=== PATIENT | female | born 1940 | race Caucasian/White ===

== ENCOUNTER 2022-04-18 07:38 | Day surgery (SDC) | payer MEDICARE, OTHER ==
[2022-04-18] MEDS ORDERED: diazePAM 5 MG TAB PO PRN (08:53)
[2022-04-18 09:16] VITALS: TEMP 98.3
--- NOTE | 2022-04-18 11:39 | CT ---
EXAMINATION TYPE: CT lumbar spine w con, FL myelogram lumbosacral DATE OF EXAM: 04/18/2022 COMPARISON: None HISTORY: Radiculopathy. CT DLP: 487.4 mGycm Automated exposure control for dose reduction was used. CONTRAST: 10 cc of intrathecal contrast was administered. PROCEDURE: Informed consent was obtained and all the patient's questions were answered. Approximately 10 cc of nonionic contrast was injected into the thecal sac at the L2-3 level under fluoroscopic cuate dance. Patient tolerated the procedure well and was sent to the radiology suite for further imaging. Enhanced CT of the lumbar spine was performed. Bone and soft tissue window settings are submitted as well as coronal and sagittal reconstructions. L1-L2: There is evidence of vacuum disc. Posterior disc bulge noted. Mild effacement ventral thecal s ac. No evidence for disc herniation or central stenosis. Mild facet joint arthropathy without foramin al encroachment. Ventral spondylosis identified. L2-L3: Postoperative changes of lumbar laminectomy with fusion. Intervertebral body spacer noted. Ext ensive streak artifact limits evaluation. No definite evidence for recurrent or residual disease. No central stenosis. Appropriate postoperative alignment. L3-L4: Postoperative changes of lumbar laminectomy with fusion. Intervertebral body spacer noted. Ext ensive streak artifact limits evaluation. No definite evidence for recurrent or residual disease. No central stenosis. Appropriate postoperative alignment. L4-L5: Postoperative changes of lumbar laminectomy with fusion. Intervertebral body spacer noted. Ext ensive streak artifact limits evaluation. No definite evidence for recurrent or residual disease. No central stenosis. Grade 1 anterolisthesis L4 and L5 of 3 mm. L5-S1: Postoperative changes of lumbar laminectomy with fusion. Vacuum disc noted. Extensive streak a rtifact limits evaluation. No definite evidence for recurrent or residual disease. No central stenosi s. IMPRESSION: 1. Extensive postoperative change of lumbar laminectomy and fusion extending from L2 through L5 S1. E xamination is limited by streak artifact. No obvious recurrent or residual disease. Mild anterolisthe sis L4 and L5 3 mm. 2. vacuum disc and posterior disc bulge at the L1-2.
[2022-04-18 13:38] VITALS: BP 116/82; PULSE 75; RESP 16
== END 2022-04-18 13:01 | disposition home or self-care (01) ==
LOC: RADPROMAIN 07:38
PROVIDERS: ATTEND Orthopaedic Surgery
DX: M54.50 Low back pain, unspecified (principal); M54.10 Radiculopathy, site unspecified
CPT/HCPCS: 62304; 72132; Q9966

== ENCOUNTER → 2022-05-01 | Outpatient (CLI) | payer MEDICARE ==
[2022-05-01 12:00] LABS: Anisocytosis Slight; HCT 31.6 % (34.0-46.0); HGB 10.3 gm/dL (11.4-16.0); Hypochromasia Slight; MCH 33.3 pg (25.0-35.0); MCHC 32.6 g/dL (31.0-37.0); MCV 102.1 fL (80.0-100.0); Macrocytosis Slight; Mean Platelet Volume 8.3; Platelet Count 243 k/uL (150-450); RBC 3.09 m/uL (3.80-5.40); RDW 16.3 % (11.5-15.5); WBC 7.2 k/uL (3.8-10.6)
[2022-05-01 12:15] LABS: Potassium 4.5 mmol/L (3.5-5.1)
== END | disposition home or self-care (01) ==
LOC: LABPAT 10:49
PROVIDERS: ATTEND Internal Medicine
DX: Z01.812 Encounter for preprocedural laboratory examination (principal); I35.0 Nonrheumatic aortic (valve) stenosis
CPT/HCPCS: 36415; 80051; 82565; 84520; 85027

== ENCOUNTER 2022-05-02 09:25 | Day surgery (SDC) | payer MEDICARE ==
[~2022-05-02 09:25] MED LIST: ALPRAZolam 0.25 MG TAB PO PRN; ALPRAZolam 0.5 MG TAB PO PRN; ASPIRIN 325 MG TAB PO ONE; ATORVASTATIN 80 MG TAB PO ONE; HEPARIN SODIUM,PORCINE 10,000 UNIT in SODIUM CHLORIDE 0.9% 1,000 ML IRRIGATION PRN; HEPARIN SODIUM,PORCINE 2,500 UNIT in SODIUM CHLORIDE 0.9% 250 ML IRRIGATION PRN; NITROGLYCERIN SL TABS 0.4 MG TAB SUBLINGUAL PRN
[2022-05-02] MEDS: SODIUM CHLORIDE 0.9% 1,000 ML in EMPTY BAG 1 BAG IV SCH ×3 (10:00→18:50)
[2022-05-02] MEDS ORDERED: fentaNYL (PF) 50 MCG/ML 2 ML AMP ONE (10:42)
[2022-05-02] MEDS ORDERED: BENZOCAINE SPRAY 1 CAN TOPICAL ONE (10:57)
[2022-05-02] MEDS ORDERED: HEPARIN SODIUM 1,000 UN/ML (10ML VL) ONE (11:02)
[2022-05-02] MEDS ORDERED: VERAPAMIL 2.5 MG/ML 2 ML AMP ONE (11:02)
[2022-05-02] MEDS: MIDAZOLAM 2 MG/2 ML VIAL IVP ONE ×2 (11:08→11:11)
[2022-05-02] MEDS: fentaNYL (PF) 50 MCG/ML 2 ML AMP IVP ONE ×2 (11:08→11:23)
[2022-05-02] MEDS ORDERED: MIDAZOLAM 2 MG/2 ML VIAL IVP ONE (11:13)
--- NOTE | 2022-05-02 11:29 | P.TEE ---
Description of Procedure(s): Procedure performed: Transesophageal Echocardiogram with color flow doppler, pulsed wave doppler and continuous wave doppler, moderate conscious sedation Moderate conscious sedation: Moderate conscious sedation was supplied with direct supervision of myself using Versed and Fentanyl. Complications: none Indications: Moderate to severe aortic stenosis PROCEDURE: After the risks, benefits and alternatives of the above mentioned procedure was explained in detail with the patient, informed consent was obtained. Patient was brought to the lab in a fasting state. Patient was given IV Versed and Fentanyl for sedation. The throat was sprayed with Hurricane to anesthetize the throat. A lubricated Omni probe was then introduced into the esophagus and stomach and multiple views were obtained. 2D echo with color flow doppler, pulsed wave doppler and continuous wave doppler was utilized. Agitated saline bubbles were injected to assess for any intra-atrial shunt. The probe was then removed. Patient tolerated the procedure well. Patient was transferred to the post procedure area in stable and satisfactory condition. FINDINGS: 1. There is a bioprosthetic aortic valve with severe aortic stenosis. Vmax of 4.3 m/s, mean gradient 39.5 mmHg, aortic valve area by planimetry 0.6 cm. 2. The mitral valve appears be normal with mild mitral regurgitation. 3. Tricuspid valve has moderate tricuspid regurgitation. 4. The interatrial septum is intact. No evidence of PFO. 5. Left atrial appendage is free of clot. 6. Left ventricular size and function appears to be normal with left ventricular ejection fraction 55-60%
[2022-05-02] MEDS ORDERED: LIDOCAINE 1% INJ 10MG/ML (5 ML VIAL-PF) SQ ONE (11:52)
[2022-05-02] MEDS ORDERED: VERAPAMIL SYRINGE (5 MG/10 ML) INTRAARTER ONE (11:54)
[2022-05-02] MEDS: HEPARIN SODIUM 1,000 UN/ML (10ML VL) IV ONE ×7 (11:57→13:10)
[2022-05-02] MEDS ORDERED: CLOPIDOGREL 75 MG TAB ONE (12:18)
[2022-05-02] MEDS ORDERED: CLOPIDOGREL 75 MG TAB PO ONE (12:20)
[2022-05-02] MEDS ORDERED: SODIUM CHLORIDE 0.9% 1,000 ML in EMPTY BAG 1 BAG IV ONE (13:00)
[2022-05-02] MEDS ORDERED: IOPAMIDOL-370 125ML BTL INJ ONE (13:06)
[2022-05-02] MEDS ORDERED: PANTOPRAZOLE 40 MG TABLET PO PRN (14:47)
[2022-05-02] MEDS ORDERED: hydrALAZINE HCL 20 MG/ML 1 ML VIAL IVP STA (15:28)
--- NOTE | 2022-05-02 17:36 | P.PRCINT ---
Percutaneous Coronary Int. - Percutaneous Coronary Intervention Percutaneous Coronary Intervention: PROCEDURES PERFORMED: Bilateral coronary angiography, PORTILLO to LAD angiography, SVG to PDA angiography, IVUS left main, iFR LAD, PCI left main with 4.0 x 12 mm Xience ADAN INDICATION: Severe aortic stenosis, [place] Heart Association class 3-4 symptoms with worsened angina, CAD with history of 2 vessel CABG SVG to RCA and PORTILLO to LAD CONSENT:I have discussed the risks, benefits and alternative therapies for the above-mentioned procedure and for both sedation/analgesia as well as necessary blood product administration, if indicated, as they pertain to this patient. The patient has indicated understanding and acceptance of the risks and procedures discussed. PROCEDURE: After the risks, benefits and alternatives of the above mentioned procedure explained in detail with the patient, informed consent was obtained. Patient was taken to the catheterization lab and prepped and draped in usual fashion. 1% lidocaine was used to anesthetize the left radial artery. A 6- Jamaican sheath was placed in the left radial artery using modified Seldinger technique. Left coronary angiography was performed with a 6-CLS 3.5 catheter (given FL 3.5 and FL4 could not engage) and right coronary angiography was performed with a 5-Jamaican JR4 catheter in various views. SVG to RCA angiography was performed with a 6-Jamaican FR 4 catheter and PORTILLO to LAD angiography was performed with the 6-Jamaican FR 4 catheter. There was distal circumflex 100% stenosis which was noted on prior catheterization however appeared to be progression of left main disease and possible progression of proximal LAD disease. The decision was made to perform PCI of the left main. The 6-Jamaican CLS 3.5 guide was used engage the left main. A 0.014 BMW wire was advanced into the distal LAD and a second BMW was advanced into the distal OM1. Balloon angioplasty was performed with a 3.5 x 8 mm balloon. Next DANNY was performed which showed reference vessel 4.2 x 3.8mm. Therefore a 4.0 x 12 mm Xience ADAN was placed in the proximal left main. Contrast was limited secondary to CKD. There was a proximal LAD lesion which was also evaluated with iFR. An iFR wire was advanced into the left main and normalized and then advanced 1 cm distal to the lesion. iFR was performed which was 0.86 as well as 0.92. Given some discrepancy and appeared to supply a fairly small territory unprotected diagonal branch this was felt best treated medically especially given contrast threshold. The wires were removed and final angiograms were performed. The left radial sheath was removed and a TR band was placed with hemostasis achieved. The patient tolerated the procedure well. Patient was transported back to the post catheterization holding area in stable condition. Conscious Sedation: Patient was monitored under the direct supervision of vision of myself for conscious sedation using Versed and fentanyl for a total duration of 75 minutes HEMODYNAMICS: Aorta: 142/76 SELECTIVE CORONARY ARTERIOGRAPHY: LEFT MAIN: The left main is a large caliber vessel which bifurcates into the LAD and circumflex. There is a 70% left main shaft stenosis. LEFT ANTERIOR DESCENDING CORONARY ARTERY: LAD is a large caliber vessel which wraps around to the apex. There is a proximal LAD 70% stenosis and a mid LAD 100% stenosis. LEFT CIRCUMFLEX CORONARY ARTERY: Left circumflex is a moderate caliber vessel. The circumflex gives off a small caliber OM1 vessel with mild disease and after OM1 there is 100% circumflex stenosis. RIGHT CORONARY ARTERY: The right coronary artery is a moderate caliber vessel which gives off a PDA and PLV branch and is the dominant vessel. There is 100% mid RCA diffuse disease. SVG to PDA: Widely patent PORTILLO to LAD: Widely patent FINAL IMPRESSION: 1. CAD as described above including 70% left main stenosis, 70% proximal LAD stenosis, mid LAD 100% stenosis, mid circumflex 100% stenosis, mid RCA 100% stenosis 2. Patent PORTILLO to LAD and SVG to the PDA 3. Status post successful PCI left main with a 4.0 x 12 mm Xience ADAN PLAN: 1. Aggressive risk factor modification per most recent ACC/AHA guidelines. 2. Continue Eliquis and Plavix for minimum 6 months. 3. Given contrast threshold and iFR borderline would treat unprotected diagonal/proximal LAD lesion medically at this time. If patient continues to have symptoms despite PCI left main would recommend aortic valve replacement.
[2022-05-02] MEDS ORDERED: hydrALAZINE HCL 20 MG/ML 1 ML VIAL IVP PRN (19:38)
[2022-05-02] MEDS ORDERED: ZOLPIDEM 5 MG TAB PO PRN (20:24)
[2022-05-02] MEDS ORDERED: RX INFO: IV CONTRAST WAS GIVEN 1 EACH MISC MISCELLANE PRN (20:24)
[2022-05-02] MEDS ORDERED: MAG HYDROX/AL HYDROX/SIMETH 30 ML CUP PO PRN (20:24)
[2022-05-02] MEDS ORDERED: ATROPINE SULFATE 0.1 MG/ML 10ML SYRINGE IV PRN (20:24)
[2022-05-02] MEDS ORDERED: NITROGLYCERIN SL TABS 0.4 MG TAB SUBLINGUAL PRN (20:24)
[2022-05-02] MEDS: GABAPENTIN 300 MG CAP PO SCH (20:42)
[2022-05-02] MEDS: SODIUM CHLORIDE 0.9% 1,000 ML IV SCH (20:43)
[2022-05-02] MEDS ORDERED: allopurinoL 300 MG TAB PO SCH (21:00)
[2022-05-02] MEDS ORDERED: FENOFIBRATE 160 MG TAB PO SCH (21:00)
[2022-05-03 07:29] VITALS: PULSE 60; RESP 18; TEMP 98
[2022-05-03] MEDS ORDERED: ASPIRIN 81 MG PO SCH (09:00)
[2022-05-03] MEDS ORDERED: CHOLECALCIFEROL 25 MCG (1000 IU) TABLET PO SCH (09:00)
[2022-05-03] MEDS ORDERED: APIXABAN 5 MG TAB PO SCH (09:00)
[2022-05-03] MEDS ORDERED: LOSARTAN 25 MG TAB PO SCH (09:00)
[2022-05-03] MEDS ORDERED: POTASSIUM CHLORIDE ER 20 MEQ TAB.ER PO SCH (09:00)
[2022-05-03] MEDS ORDERED: FUROSEMIDE 20 MG TAB PO SCH (09:00)
[2022-05-03] MEDS ORDERED: CLOPIDOGREL 75 MG TAB PO SCH (09:00)
[2022-05-03] MEDS ORDERED: LORATADINE 10 MG TAB PO SCH (09:00)
[2022-05-03] MEDS ORDERED: LACTOBACILLUS ACIDOPH & BULGAR 1 EACH PACKET PO SCH (09:00)
[2022-05-03] MEDS ORDERED: ASCORBIC ACID 500 MG TAB PO SCH (09:00)
[2022-05-03] MEDS ORDERED: SERTRALINE 50 MG TAB PO SCH (09:00)
[2022-05-03] MEDS: GABAPENTIN 300 MG CAP PO SCH (09:30)
[2022-05-03] MEDS: SODIUM CHLORIDE 0.9% 1,000 ML IV SCH (09:38)
[2022-05-03] MEDS ORDERED: FUROSEMIDE 10 MG/ML 4 ML VIAL IV STA (10:02)
--- NOTE | 2022-05-03 10:09 | P.PN ---
Subjective HISTORY OF PRESENTING ILLNESS underwent SHEMAR and left heart catheterization yesterday. SHEMAR showed severe aortic stenosis and left heart catheterization showed patent PORTILLO to LAD and patent SVG to RCA. RCA was under percent occluded with progression of left main disease to 70% as well as some progression of proximal LAD lesion however proxi mal LAD lesion did not appear as significant and only leading towards smaller diagonal branch. Given contrast threshold PCI of the left main was performed successfully from a left radial approach. Given her CKD she was placed on IV fluids. Creatinine today has improved to 1.0. She has been describing some increased dyspnea however and does have crackles on exam. Blood pressures a been somewhat elevated and has needed as needed doses of hydralazine. We have prescribed metoprolol in the office however has not been getting this here. PHYSICAL EXAMINATION Vital signs reviewed. CONSTITUTIONAL: No apparent distress. HEENT: Head is normocephalic. Pupils are equal, round. Sclerae anicteric. Mucous membranes of the mouth are moist. No JVD. No carotid bruit. CHEST EXAMINATION: Lungs are clear to auscultation. No chest wall tenderness is noted on palpation or with deep breathing. HEART EXAMINATION: Regular rate and rhythm. S1, S2 heard. +3/6 murmurs, gallops or rub. ABDOMEN: Soft, nontender. Positive bowel sounds. EXTREMITIES: 2+ peripheral pulses, no lower extremity edema and no calf tenderness. NEUROLOGIC EXAMINATION: Patient is awake, alert and oriented x3. ASSESSMENT 1. Symptomatic severe aortic stenosis 2. Chest pain and dyspnea worsened recently concerning for unstable angina 3. CAD with 100% RCA, 100% mid LAD, 100% mid circumflex and progression of left main to 70% stenosis as well as proximal LAD 90% stenosis, status post PCI left main 05/02 4. Acute on chronic diastolic heart failure 5. Dyspnea appears most likely related to heart failure 6. Chronic kidney disease somewhat improved 7. Atrial fibrillation PLAN Patient having some increase in dyspnea and we will check chest x-ray stop IV fluids and give Lasix. Also start metoprolol. EKG shows continued similar T- wave inversions similar to prior to intervention. Monitor response of Lasix and if improved by this afternoon likely discharge home. Objective - Vital Signs Vital signs: Vital Signs Temp 98.0 F 05/03/22 07:00 Pulse 60 05/03/22 09:42 Resp 18 05/03/22 07:00 BP 159/85 05/03/22 07:00 Pulse Ox 98 05/03/22 09:42 FiO2 21 05/03/22 08:08 Intake & Output 05/02/22 05/03/22 05/03/22 18:59 06:59 18:59 Intake Total 945 750 80 Balance 945 750 80 Weight 60.3 kg Intake: IV 425 Intake, IV Titration 400 Amount Sodium Chloride 0.9% 1, 400 000 ml In Empty Bag 1 bag @ 3 ML/KG/HR 180.9 mls/ hr IV .[id number] ONE Rx#: [id number] Oral 120 750 80 Other: # Voids 1 - Labs CBC & Chem 7: 05/03/22 05:15 Labs: Abnormal Lab Results - Last 24 Hours (Table) 05/03/22 Range/Units 05:15 Creatinine 1.08 H (0.52-1.04) mg/dL
[2022-05-03] MEDS ORDERED: METOPROLOL SUCCINATE (ER) 25 MG TAB.ER.24H PO SCH (10:15)
[2022-05-03 10:55] VITALS: BMI 25.9
--- NOTE | 2022-05-03 11:09 | XR ---
EXAMINATION TYPE: XR chest 2V DATE OF EXAM: 05/03/2022 COMPARISON: Chest x-ray March 14, 2010 HISTORY: Dyspnea. TECHNIQUE: Frontal and lateral views of the chest are obtained. FINDINGS: The osseous structures are demineralized. Persistent mild cardiomegaly with dual lead pace maker. Persistent overlying sternal wires and mediastinal clips. Increased interstitial prominence bi laterally without suspicious focal airspace opacity, pleural effusion, or pneumothorax seen. IMPRESSION: Cardiomegaly with suggestion of mild interstitial edema. Correlate for CHF exacerbation.
[2022-05-03 14:01] VITALS: BP 170/78
--- NOTE | 2022-05-03 20:43 | P.DS ---
Providers Attending physician: Mani Alas DO Consults: 05/02/22 20:24 Consult Physician Routine Consulting Provider: [facility] Consult Reason/Comments: Post Interventional Patient Do you want consulting provider notified?: Already Contacted Primary care physician: ELEAZAR CHUN DO Hospital Course: Patient presented for workup of worsening SOB and chest pains concerning for unstable angina or progression of aortic stenosis. SHEMAR was performed which showed severe aortic stenosis and a LHC showed patent PORTILLO to LAD and SVG to RCA as well as progression of left main to 70% stenosis with additional proximal LAD 90% stenosis leading only to a smaller caliber diagonal with remainder of LAD revascularized by PORTILLO. Given progression of Left main disease, PCI was recommended and patient underwent successful PCI of left main. After, iFR of LAD was borderline and therefore treated medically especially given CKD and contrast threshold. She was monitored overnight and did have some dyspnea which appeared related to the IVF she recieved for CKD/ prehydration and this improved with diuresis. She will be sent home with triple therapy with aspirin, Plavix, Eliquis for 1 week then transition to only Eliquis and Plavix for 6 months. If she continues to have symptoms, recommend AVR. Patient Condition at Discharge: Stable Plan - Discharge Summary Discharge Rx Participant: No New Discharge Prescriptions: New Atorvastatin [Lipitor] 40 mg PO DAILY #90 tablet Clopidogrel [Plavix] 75 mg PO DAILY #90 tablet Metoprolol Succinate (ER) [Toprol Xl] 25 mg PO DAILY #90 tab No Action allopurinoL [Zyloprim] 300 mg PO HS Cholecalciferol [Vitamin D3] 1,000 unit PO DAILY Ascorbic Acid [Vitamin C] 500 mg PO DAILY Sertraline [Zoloft] 50 mg PO QAM Aspirin 81 mg PO DAILY Losartan [Cozaar] 25 mg PO QAM Gabapentin 600 mg PO BID Omeprazole [PriLOSEC] 20 mg PO DAILY PRN PRN Reason: REFLUX Furosemide [Lasix] 20 mg PO DAILY Apixaban [Eliquis] 5 mg PO BID Cetirizine HCl [Zyrtec] 5 mg PO DAILY Potassium Chloride [Klor-Con 20] 20 meq PO DAILY Fenofibrate 150 mg PO HS Lactobacillus Acidophilus [Acidophilus Probiotic] 1 each PO DAILY Discharge Medication List Ascorbic Acid [Vitamin C] 500 mg PO DAILY 03/27/15 [History] Aspirin 81 mg PO DAILY 03/27/15 [History] Cholecalciferol [Vitamin D3] 1,000 unit PO DAILY 03/27/15 [History] Gabapentin 600 mg PO BID 03/27/15 [History] Losartan [Cozaar] 25 mg PO QAM 03/27/15 [History] Omeprazole [PriLOSEC] 20 mg PO DAILY PRN 03/27/15 [History] Sertraline [Zoloft] 50 mg PO QAM 03/27/15 [History] allopurinoL [Zyloprim] 300 mg PO HS 03/27/15 [History] Apixaban [Eliquis] 5 mg PO BID 03/25/22 [History] Cetirizine HCl [Zyrtec] 5 mg PO DAILY 03/25/22 [History] Fenofibrate 150 mg PO HS 03/25/22 [History] Furosemide [Lasix] 20 mg PO DAILY 03/25/22 [History] Lactobacillus Acidophilus [Acidophilus Probiotic] 1 each PO DAILY 03/25/22 [History] Potassium Chloride [Klor-Con 20] 20 meq PO DAILY 03/25/22 [History] Atorvastatin [Lipitor] 40 mg PO DAILY #90 tablet 05/03/22 [Rx] Clopidogrel [Plavix] 75 mg PO DAILY #90 tablet 05/03/22 [Rx] Metoprolol Succinate (ER) [Toprol Xl] 25 mg PO DAILY #90 tab 05/03/22 [Rx] Follow up Appointment(s)/Referral(s): Mani Alas DO [STAFF PHYSICIAN] - 05/13/22 1:15 pm Patient Instructions/Handouts: Moderate Sedation (DC), Coronary Angioplasty (DC), After Radial Heart Catheterization (GEN), Transesophageal Echocardiogram (DC), Clopidogrel (By mouth) Activity/Diet/Wound Care/Special Instructions: No lifting/pushing/pulling greater than 5 lbs for 5 days with left arm. Remove dressing tomorrow afternoon. No need to re-dress. You may shower tomorrow after dressing removal. No soaking puncture site for 3 days (such as swim or tub). RESUME Eliquis tomorrow. Discharge Disposition: HOME SELF-CARE
== END 2022-05-03 17:50 | disposition home or self-care (01) ==
LOC: CATHCVL 09:25 → 6NMEDSUR 13:05 → CATHCVL 05-03 17:50
PROVIDERS: ATTEND Internal Medicine
DX: I08.3 Combined rheumatic disorders of mitral, aortic and tricuspid valves (principal); I25.118 Atherosclerotic heart disease of native coronary artery with other forms of angina pectoris; I25.82 Chronic total occlusion of coronary artery; I48.19 Other persistent atrial fibrillation; I49.5 Sick sinus syndrome; I10 Essential (primary) hypertension; E78.5 Hyperlipidemia, unspecified; M10.9 Gout, unspecified; Z20.822 Contact with and (suspected) exposure to COVID-19; Z95.1 Presence of aortocoronary bypass graft; Z95.3 Presence of xenogenic heart valve; Z95.0 Presence of cardiac pacemaker; Z90.49 Acquired absence of other specified parts of digestive tract; Z85.3 Personal history of malignant neoplasm of breast; Z79.899 Other long term (current) drug therapy; Z79.01 Long term (current) use of anticoagulants
CPT/HCPCS: 94760; 93312; 93320; 93325; 93571; 92978; 93455; 82565; 87635; 71046; C9600; C1769 ×2; C1887; C1894; C1725; C1753; C1874; J2250; J0360; J1940; J2001; J3010; J1644; Q9967

== ENCOUNTER 2022-05-07 21:31 | Inpatient (IN) | payer MEDICARE ==
[2022-05-07 22:45] LABS: Albumin 3.9 g/dL (3.5-5.0); Calcium 10.1 mg/dL (8.4-10.2); Potassium 4.1 mmol/L (3.5-5.1); Total Bilirubin 0.7 mg/dL (0.2-1.3); Total Protein 6.3 g/dL (6.3-8.2)
[2022-05-07 23:05] LABS: Anisocytosis Slight; Basophils % (A) 0 %; Eosinophils # (A) 0.2 k/uL (0-0.7); Eosinophils % (A) 1 %; HCT 25.3 % (34.0-46.0); Hypochromasia Moderate; Lymphocytes % (A) 16 %; MCH 32.3 pg (25.0-35.0); MCHC 31.7 g/dL (31.0-37.0); MCV 101.6 fL (80.0-100.0); Macrocytosis Slight; Mean Platelet Volume 8.4; Monocytes # (A) 0.6 k/uL (0-1.0); Monocytes % (A) 5 %; Neutrophils # (A) 9.5 k/uL (1.3-7.7); Neutrophils % (A) 77 %; Platelet Count 346 k/uL (150-450); Poikilocytosis Slight; RBC 2.49 m/uL (3.80-5.40); RDW 17.3 % (11.5-15.5); WBC 12.4 k/uL (3.8-10.6)
[2022-05-07] MEDS ORDERED: SODIUM CHLORIDE 0.9% 1,000 ML IV STA (23:11)
--- NOTE | 2022-05-07 23:18 | ED ---
ENT HPI - General Chief complaint: ENT Stated complaint: Nose Bleed Time Seen by Provider: 05/07/22 22:37 Source: patient, family, RN notes reviewed Mode of arrival: ambulatory Limitations: no limitations - History of Present Illness Initial comments: This is a pleasant 81-year-old female presents to the emergency back complaining of right sided epistaxis which started about 7 PM. Patient states she was also getting some bleeding down the back of her throat. Patient already has nasal packing in the last several knows from [facility]. Patient saw the ear nose and throat doctor yesterday, Dr. Garcia. Bleeding has now stopped. Patient scheduled for surgery tomorrow by ENT. No headache, no fever or chills, no changes in vision or hearing, no sore throat or difficulty with speech, no neck pain, no chest pain or shortness of breath, no abdominal pain, no nausea or vomiting, no changes in urination or bowel movements, no numbness or tingling, no extremity pain, no skin rashes or lesions. Patient is on Eliquis as she just had a cardiac stent placed on Thursday by Dr. Alas. 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 It was decided that the Eliquis would be continued. MD complaint: epistaxis - Related Data Home Medications Medication Instructions Recorded Confirmed Aspirin 81 mg PO DAILY 03/27/15 05/07/22 Gabapentin 600 mg PO BID 03/27/15 05/07/22 Losartan [Cozaar] 50 mg PO DAILY 03/27/15 05/07/22 allopurinoL [Zyloprim] 300 mg PO HS 03/27/15 05/07/22 Apixaban [Eliquis] 5 mg PO BID 03/25/22 05/07/22 Furosemide [Lasix] 20 mg PO DAILY 03/25/22 05/07/22 Potassium Chloride [Klor-Con 20] 20 meq PO DAILY 03/25/22 05/07/22 Fenofibrate Nanocrystallized 145 mg PO HS 05/07/22 05/07/22 [Fenofibrate] Ipratropium [place] [Ipratropium 2 spray NASAL BID PRN 05/07/22 05/07/22 [place] 0.03%] Magnesium 250 mg PO DAILY 05/07/22 05/07/22 Previous Rx's Medication Instructions Recorded Atorvastatin [Lipitor] 40 mg PO DAILY #90 tablet 05/03/22 Allergies Allergy/AdvReac Type Severity Reaction Status Date / Time No Known Allergies Allergy Verified 05/07/22 23:44 Review of Systems ROS Statement: Those systems with pertinent positive or pertinent negative responses have been documented in the HPI. ROS Other: All systems not noted in ROS Statement are negative. Past Medical History Past Medical History: Coronary Artery Disease (CAD), GERD/Reflux, Hyperlipidemia, Hypertension Additional Past Medical History / Comment(s): See Dr Hernandez's H&P. Fall 05/04/22 with significant facial trauma. Bilateral hearing aid use. DIARRHEA. HX RIGHT BREAST CANCER STAGE 1, HAD RADIATION JUL-SEP 2012. History of Any Multi-Drug Resistant Organisms: None Reported Past Surgical History: Back Surgery, Bowel Resection, Coronary Bypass/CABG, Heart Catheterization With Stent, Hysterectomy, Orthopedic Surgery, Pacemaker Additional Past Surgical History / Comment(s): CABG 3 VESSEL WITH AORTIC VALVE REPLACEMENT, heart catheterization X2 with one stent each time, RIGHT BREAST LUMPECTOMY, pacemaker, pins and screws in lumbar spine, bowel resection due to precancer, SHEMAR. Past Anesthesia/Blood Transfusion Reactions: No Reported Reaction Date of Last Stent Placement:: 05/02/22 Type of Cardiac Device: Unknown Device Placement Date:: unknown Past Psychological History: Depression Smoking Status: Never smoker Past Alcohol Use History: None Reported Past Drug Use History: None Reported - Past Family History Mother Family Medical History: Cancer Father Additional Family Medical History / Comment(s): HEART PROBLEMS. General Exam Limitations: no limitations General appearance: alert, in no apparent distress Head exam: Present: atraumatic, normocephalic, normal inspection Eye exam: Present: normal appearance, PERRL, EOMI. Absent: scleral icterus, conjunctival injection, periorbital swelling ENT exam: Present: normal oropharynx, mucous membranes moist, TM's normal bilaterally, normal external ear exam, other (Evidence of right-sided epistaxis with a large clot in the nasal passage. No active bleeding. Left side is packed. Extensive bruising noted to the patient's periorbital and perinasal area.). Absent: mucous membranes dry Neck exam: Present: normal inspection, full ROM. Absent: tenderness, meningismus, lymphadenopathy Respiratory exam: Present: normal lung sounds bilaterally. Absent: respiratory distress, wheezes, rales, rhonchi, stridor Cardiovascular Exam: Present: regular rate, normal rhythm, normal heart sounds. Absent: systolic murmur, diastolic murmur, rubs, gallop, clicks GI/Abdominal exam: Present: soft, normal bowel sounds. Absent: distended, tenderness, guarding, rebound, rigid Extremities exam: Present: normal inspection, full ROM, normal capillary refill. Absent: tenderness, pedal edema, joint swelling, calf tenderness Back exam: Present: normal inspection Neurological exam: Present: alert, oriented X3, CN II-XII intact Psychiatric exam: Present: normal affect, normal mood Skin exam: Present: warm, dry, intact, normal color. 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 Bleeding site could not be visualized. Packed with nasal tampon. Patient tolerated adequately. Hemostasis obtained. Unasyn 3 g IV piggyback ordered. Medical Decision Making - Medical Decision Making Patient will be placed in observation with consultation for ENT. We'll avoid packing the nasal passage for a knows the patient has a fracture which required surgical repair. Patient has no current bleeding. The case was discussed in detail with ED attending physician. Presentation, findings, treatment plan discussed in detail. Vat Skimmer Dr. Dumont - Lab Data Result diagrams: 05/08/22 20:16 05/08/22 00:13 Lab Results 05/07/22 05/07/22 05/08/22 Range/Units 21:48 21:48 00:13 WBC 12.4 H (3.8-10.6) k/uL RBC 2.49 L (3.80-5.40) m/uL Hgb 8.0 L D (11.4-16.0) gm/dL Hct 25.3 L (34.0-46.0) % MCV 101.6 H (80.0-100.0) fL MCH 32.3 (25.0-35.0) pg MCHC 31.7 (31.0-37.0) g/dL RDW 17.3 H (11.5-15.5) % Plt Count 346 (150-450) k/uL MPV 8.4 Neutrophils % 77 % Lymphocytes % 16 % Monocytes % 5 % Eosinophils % 1 % Basophils % 0 % Neutrophils # 9.5 H (1.3-7.7) k/uL Lymphocytes # 2.0 (1.0-4.8) k/uL Monocytes # 0.6 (0-1.0) k/uL Eosinophils # 0.2 (0-0.7) k/uL Basophils # 0.0 (0-0.2) k/uL Hypochromasia Moderate Poikilocytosis Slight Anisocytosis Slight Macrocytosis Slight PT 11.9 (9.0-12.0) sec INR 1.1 (<1.2) APTT 21.6 L (22.0-30.0) sec Sodium 140 (137-145) mmol/L Potassium 4.1 (3.5-5.1) mmol/L Chloride 106 (98-107) mmol/L Carbon Dioxide 20 L (22-30) mmol/L Anion Gap 14 mmol/L BUN 22 H (7-17) mg/dL Creatinine 1.42 H (0.52-1.04) mg/dL Est GFR (CKD-EPI)AfAm 41 (>60 ml/min/1.73 sqM) Est GFR (CKD-EPI)NonAf 35 (>60 ml/min/1.73 sqM) Glucose 150 H (74-99) mg/dL Calcium 10.1 (8.4-10.2) mg/dL Total Bilirubin 0.7 (0.2-1.3) mg/dL AST 39 H (14-36) U/L ALT 19 (4-34) U/L Alkaline Phosphatase 41 (38-126) U/L Total Protein 6.3 (6.3-8.2) g/dL Albumin 3.9 (3.5-5.0) g/dL Blood Type Blood Type Recheck Bld Type Recheck Status Antibody Screen Crossmatch Spec Expiration Date 05/08/22 05/08/22 Range/Units 00:13 00:13 WBC (3.8-10.6) k/uL RBC (3.80-5.40) m/uL Hgb (11.4-16.0) gm/dL Hct (34.0-46.0) % MCV (80.0-100.0) fL MCH (25.0-35.0) pg MCHC (31.0-37.0) g/dL RDW (11.5-15.5) % Plt Count (150-450) k/uL MPV Neutrophils % % Lymphocytes % % Monocytes % % Eosinophils % % Basophils % % Neutrophils # (1.3-7.7) k/uL Lymphocytes # (1.0-4.8) k/uL Monocytes # (0-1.0) k/uL Eosinophils # (0-0.7) k/uL Basophils # (0-0.2) k/uL Hypochromasia Poikilocytosis Anisocytosis Macrocytosis PT (9.0-12.0) sec INR (<1.2) APTT (22.0-30.0) sec Sodium 140 (137-145) mmol/L Potassium 3.9 (3.5-5.1) mmol/L Chloride 108 H (98-107) mmol/L Carbon Dioxide 25 (22-30) mmol/L Anion Gap 7 mmol/L BUN 24 H (7-17) mg/dL Creatinine 1.47 H (0.52-1.04) mg/dL Est GFR (CKD-EPI)AfAm 39 (>60 ml/min/1.73 sqM) Est GFR (CKD-EPI)NonAf 34 (>60 ml/min/1.73 sqM) Glucose 129 H (74-99) mg/dL Calcium 9.9 (8.4-10.2) mg/dL Total Bilirubin (0.2-1.3) mg/dL AST (14-36) U/L ALT (4-34) U/L Alkaline Phosphatase (38-126) U/L Total Protein (6.3-8.2) g/dL Albumin (3.5-5.0) g/dL Blood Type B Positive Blood Type Recheck B Pos Bld Type Recheck Status No Antibody Screen NEGATIVE Crossmatch See Detail Spec Expiration Date 05/11/20222312 Disposition Clinical Impression: Epistaxis, Nasal fracture Disposition: ADMITTED IP TO THIS [facility] Condition: Stable Is patient prescribed a controlled substance at d/c from ED?: No Time of Disposition: 23:18 Decision to Admit Reason: Admit from EC Decision Time: 23:18
[2022-05-08 00:33] LABS: Calcium 9.9 mg/dL (8.4-10.2); Potassium 3.9 mmol/L (3.5-5.1)
[2022-05-08] MEDS ORDERED: ONDANSETRON 4 MG/2 ML VIAL IVP PRN (00:45)
[2022-05-08] MEDS ORDERED: MORPHINE SULFATE 4 MG/ML SYRINGE IV PRN (00:45)
[2022-05-08] MEDS ORDERED: NALOXONE 0.4 MG/ML 1 ML VIAL IV PRN (00:45)
[2022-05-08 00:56] LABS: INR 1.1 (<1.2); Partial Thromboplastin Time 21.6 sec (22.0-30.0); Prothrombin Time 11.9 sec (9.0-12.0)
[2022-05-08] MEDS ORDERED: AMPICILLIN-SULBACTAM 3 GM in SODIUM CHLORIDE 0.9% 100 ML IVPB STA (02:41)
--- NOTE | 2022-05-08 03:26 | P.HPIM ---
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 She is also scheduled to have surgical intervention tomorrow by ENT. In the ED patient reports a lot of pain around her nose and bleeding from the right nostril this does not impact and blood flowing into her back of throat. Nasal packing was done in the ED and patient was admitted for monitoring and ENT evaluation in the morning Patient denies any chest pain or trouble breathing denies any nausea vomiting fevers chills abdominal pain. ED documented that cardiology recommended to continue anticoagulation. Blood work in the ED shows hemoglobin drop of 2 g compared to a week ago Review of Systems Pertinent positives as noted in HPI. All other systems were reviewed and are negative Past Medical History Past Medical History: Coronary Artery Disease (CAD), GERD/Reflux, Hyperlipidemia, Hypertension Additional Past Medical History / Comment(s): Fall 05/04/22 with significant facial trauma. Bilateral hearing aid use. DIARRHEA. HX RIGHT BREAST CANCER STAGE 1, HAD RADIATION JUL-SEP 2012. History of Any Multi-Drug Resistant Organisms: None Reported Past Surgical History: Back Surgery, Bowel Resection, Coronary Bypass/CABG, Heart Catheterization With Stent, Hysterectomy, Orthopedic Surgery, Pacemaker Additional Past Surgical History / Comment(s): CABG 3 VESSEL WITH AORTIC VALVE REPLACEMENT, heart catheterization X2 with one stent each time, RIGHT BREAST LUMPECTOMY, pacemaker, pins and screws in lumbar spine, bowel resection due to precancer, SHEMAR. Past Anesthesia/Blood Transfusion Reactions: No Reported Reaction Date of Last Stent Placement:: 05/02/22 Type of Cardiac Device: Unknown Device Placement Date:: unknown Past Psychological History: Depression Smoking Status: Never smoker Past Alcohol Use History: None Reported Past Drug Use History: None Reported - Past Family History Mother Family Medical History: Cancer Father Additional Family Medical History / Comment(s): HEART PROBLEMS. Medications and Allergies Home Medications Medication Instructions Recorded Confirmed Type Aspirin 81 mg PO DAILY 03/27/15 05/07/22 History Gabapentin 600 mg PO BID 03/27/15 05/07/22 History Losartan [Cozaar] 50 mg PO DAILY 03/27/15 05/07/22 History allopurinoL [Zyloprim] 300 mg PO HS 03/27/15 05/07/22 History Apixaban [Eliquis] 5 mg PO BID 03/25/22 05/07/22 History Furosemide [Lasix] 20 mg PO DAILY 03/25/22 05/07/22 History Potassium Chloride [Klor-Con 20] 20 meq PO DAILY 03/25/22 05/07/22 History Atorvastatin [Lipitor] 40 mg PO DAILY #90 tablet 05/03/22 05/07/22 Rx Fenofibrate Nanocrystallized 145 mg PO HS 05/07/22 05/07/22 History [Fenofibrate] Ipratropium [place] [Ipratropium 2 spray NASAL BID PRN 05/07/22 05/07/22 History [place] 0.03%] Magnesium 250 mg PO DAILY 05/07/22 05/07/22 History Allergies Allergy/AdvReac Type Severity Reaction Status Date / Time No Known Allergies Allergy Verified 05/07/22 23:44 Physical Exam Vitals: Vital Signs Temp Pulse Resp BP Pulse Ox 05/07/22 21:40 98.2 F 81 22 105/49 95 Intake and Output 05/07/22 05/07/22 05/08/22 14:59 22:59 06:59 Other: Weight 61.235 kg Constitutional: No acute distress, patient cooperative Eyes: Anicteric sclerae, moist conjunctiva, Pupils equal round reactive to light ENMT: Patient knows looks crooked with nasal packing bilateral nostrils active bleeding with postnasal bleeding dripping into the back of the throat Bruising and erythema in the infraorbital region Neck: Supple, no masses, or JVD No carotid bruits No thyromegaly Lungs: Clear to auscultation Clear to percussion Normal respiratory effort, no accessory muscle use Cardiovascular: Heart regular in rate and rhythm, Systolic murmurs, no gallops, or rubs No peripheral edema Abdominal: Soft Nontender, no guarding, rebound or rigidity Abdomen moving with respiration Normoactive bowel sounds No hepatomegaly, No splenomegaly No palpable mass No abdominal wall hernia noted Extremities: No digital cyanosis No clubbing Pedal pulses intact and symmetrical Radial pulses intact and symmetrical No calf tenderness Psychiatric: Alert and oriented to person, place and time Appropriate affect fair judgement Neuro Muscles Strength 4/5 in all 4 extremities Sensation to light touch grossly present throughout Cranial nerves II-XII grossly intact No focal sensory deficits Lymphatics: no palpable cervical or supraclavicular , or inguinal lymph nodes Results CBC & Chem 7: 05/07/22 21:48 05/08/22 00:13 Labs: Abnormal Lab Results - Last 24 Hours (Table) 05/07/22 05/07/22 05/08/22 Range/Units 21:48 21:48 00:13 WBC 12.4 H (3.8-10.6) k/uL RBC 2.49 L (3.80-5.40) m/uL Hgb 8.0 L D (11.4-16.0) gm/dL Hct 25.3 L (34.0-46.0) % MCV 101.6 H (80.0-100.0) fL RDW 17.3 H (11.5-15.5) % Neutrophils # 9.5 H (1.3-7.7) k/uL APTT 21.6 L (22.0-30.0) sec Chloride (98-107) mmol/L Carbon Dioxide 20 L (22-30) mmol/L BUN 22 H (7-17) mg/dL Creatinine 1.42 H (0.52-1.04) mg/dL Glucose 150 H (74-99) mg/dL AST 39 H (14-36) U/L 05/08/22 Range/Units 00:13 WBC (3.8-10.6) k/uL RBC (3.80-5.40) m/uL Hgb (11.4-16.0) gm/dL Hct (34.0-46.0) % MCV (80.0-100.0) fL RDW (11.5-15.5) % Neutrophils # (1.3-7.7) k/uL APTT (22.0-30.0) sec Chloride 108 H (98-107) mmol/L Carbon Dioxide (22-30) mmol/L BUN 24 H (7-17) mg/dL Creatinine 1.47 H (0.52-1.04) mg/dL Glucose 129 H (74-99) mg/dL AST (14-36) U/L Assessment and Plan Assessment: Refractory epistaxis secondary to nose fracture secondary to accidental fall Acute on chronic anemia secondary to blood loss from refractory epistaxis Nasal packing done in the ED Left nostril packing done over 72 hours ago, will initiate antibiotics for prophylaxis with Augmentin twice a day patient received 1 dose of ampicillin in the ED Pain control Monitor hemoglobin ENT consultation Coronary artery disease with history of CABG, status post stent to left main about a week ago ED notes mentioned cardiology recommended to continue with other questions Consult cardiology for antiplatelet and anticoagulation management Patient supposed to be on Plavix and aspirin Resume other cardiac meds CK D stage III stable Full code DVT prophylaxis currently on Ely Guerin per cardiology recommendation
[2022-05-08] MEDS: SODIUM CHLORIDE 0.9% 1,000 ML IV SCH ×3 (06:25→20:49)
[2022-05-08] MEDS ORDERED: APIXABAN 5 MG TAB PO SCH (09:00)
[2022-05-08] MEDS: LOSARTAN 50 MG TAB PO SCH (09:21)
[2022-05-08] MEDS: AMOXIC-POT CLAV 875-125MG 1 EACH TAB PO SCH ×2 (09:21→20:49)
[2022-05-08] MEDS: ATORVASTATIN 40 MG TAB PO SCH (09:21)
--- NOTE | 2022-05-08 11:28 | P.PN ---
Subjective Progress Note Date: 05/08/22 Hospital course: Patient is a very pleasant 81-year-old female with a past medical history of CAD with recent stent placement to left main coronary artery on 05/02/22 on Plavix and Eliquis, CABG 3, bioprosthetic aortic valve with aortic valve stenosis, status post pacemaker, hypertension, and hyperlipidemia. She presented to the emergency department secondary to uncontrolled epistaxis. Patient sustained an accidental trip and fall on Thursday and underwent full evaluation and diagnosed with a nasal fracture and underwent nasal packing and discharged home where she was scheduled for surgical intervention 05/08/22 by ENT. On the evening of 05/07/22 patient reports experiencing increased pain in her nose accompanied by uncontrolled nosebleed along with blood flowing down the back of her throat. Nasal packing was completed in the emergency department resulting in successful controlling of bleeding. Patient did have a noted drop in hemoglobin from 10.3 on 05/01/22 down to 8.0. Patient was admitted under our services with consultation to ENT and cardiology. Patient underwent monitoring overnight. Repeat hemoglobin 6.8. Orders placed for transfusion 1 unit PRBCs. Physical exam: Patient seen and fully evaluated at bedside this morning. Patient awaiting evaluation by ENT specialist at this time. Epistaxis has been controlled. Repeat hemoglobin pending. She reported having dry mouth, mouth swabs permitted at this time is patient to remain NPO pending surgical consultation by ENT specialist. Patient to continue with Augmentin 875/125 mg tablets every 12 hours prophylactic treatment secondary to nasal packing being in greater than 72 hours. Vital signs reviewed and stable. General: Nontoxic, no distress and appears stated age. Derm: Skin warm and dry, normal coloration for ethnicity. Head: Normocephalic and symmetric. Periorbital ecchymosis bilaterally along with bruising to nasal bridge. Packing in place to bilateral nares with dried blood, no active bleeding noted at this time. Eyes: EOMs intact, no lid lag, and anicteric sclera. Periorbital ecchymosis bilaterally along with bruising to nasal bridge Mouth: no lip lesions, mucus membranes moist Cardiovascular: regular rate and rhythm with normal S1S2, systolic murmur, positive posterior tibial pulses bilaterally, and cap refill < 2 seconds. Pacemaker left anterior chest. Lungs: Respirations even, regular, and unlabored on room air. Lungs CTA bilaterally, no rhonchi, no rales, no wheezing, and no accessory muscle usage. Abdominal: soft, nontender to palpation, no guarding, no appreciable organomegaly Ext: ROM intact. No gross muscle atrophy, no edema, no contractures Neuro: Speech clear, face symmetrical and CN II-XII grossly intact with no noted focal neuro deficits Psych: Alert and oriented to person, place, time, and situation. Appropriate and pleasant affect. Assessment and Plan of Care: Acute blood loss anemia Refractory Epistaxis secondary to mechanical fall resulting in facial trauma, nasal bone fracture occurring 05/04/22 -Nasal packing and greater than 72 hours, continue prophylactic Augmentin twice daily. -ENT consulted -Monitor CBC closely and transfuse as needed for hemoglobin less than 7. -Secondary to recent stent placement patient continuing Plavix and we will hold Eliquis at this time. -Gentle IV fluid hydration. History of CAD with recent stent placement to left main coronary artery on 05/02/22. History of CABG 3 History of bioprosthetic aortic valve Status post pacemaker placement Hypertension Hyperlipidemia -Secondary to recent stent placement patient continuing Plavix and we will hold Eliquis at this time. -Cardiology consulted secondary to recent stenting and need for current holding of anticoagulation. -Telemetry monitoring. CODE STATUS: Full code DVT prophylaxis: SCDs Discussed with: Patient, patient's family at bedside, and RN Anticipated discharge date: Clinical course to determine Anticipated discharge place: Home A total of 38 minutes was spent on the care of this complex patient more than 50% of the time was spent in counseling and care coordination. Objective - Vital Signs Vital signs: Vital Signs Temp 97.3 F L 05/08/22 09:44 Pulse 80 05/08/22 09:44 Resp 20 05/08/22 09:44 BP 162/84 05/08/22 09:44 Pulse Ox 97 05/08/22 09:44 FiO2 Intake & Output 05/07/22 05/08/22 05/08/22 18:59 06:59 18:59 Weight 61.235 kg 61.235 kg - Labs CBC & Chem 7: 05/08/22 12:47 05/08/22 00:13 Labs: Abnormal Lab Results - Last 24 Hours (Table) 05/07/22 05/07/22 05/08/22 Range/Units 21:48 21:48 00:13 WBC 12.4 H (3.8-10.6) k/uL RBC 2.49 L (3.80-5.40) m/uL Hgb 8.0 L D (11.4-16.0) gm/dL Hct 25.3 L (34.0-46.0) % MCV 101.6 H (80.0-100.0) fL RDW 17.3 H (11.5-15.5) % Neutrophils # 9.5 H (1.3-7.7) k/uL APTT 21.6 L (22.0-30.0) sec Chloride (98-107) mmol/L Carbon Dioxide 20 L (22-30) mmol/L BUN 22 H (7-17) mg/dL Creatinine 1.42 H (0.52-1.04) mg/dL Glucose 150 H (74-99) mg/dL AST 39 H (14-36) U/L 05/08/22 Range/Units 00:13 WBC (3.8-10.6) k/uL RBC (3.80-5.40) m/uL Hgb (11.4-16.0) gm/dL Hct (34.0-46.0) % MCV (80.0-100.0) fL RDW (11.5-15.5) % Neutrophils # (1.3-7.7) k/uL APTT (22.0-30.0) sec Chloride 108 H (98-107) mmol/L Carbon Dioxide (22-30) mmol/L BUN 24 H (7-17) mg/dL Creatinine 1.47 H (0.52-1.04) mg/dL Glucose 129 H (74-99) mg/dL AST (14-36) U/L
[2022-05-08] MEDS: GABAPENTIN 300 MG CAP PO SCH ×2 (13:00→20:49)
[2022-05-08 13:37] LABS: Anisocytosis Slight; Basophils % (A) 0 %; Eosinophils # (A) 0.1 k/uL (0-0.7); Eosinophils % (A) 1 %; Hypochromasia Moderate; Lymphocytes # (A) 0.8 k/uL (1.0-4.8); Lymphocytes % (A) 7 %; MCH 32.2 pg (25.0-35.0); MCHC 31.1 g/dL (31.0-37.0); MCV 103.7 fL (80.0-100.0); Macrocytosis Moderate; Mean Platelet Volume 7.8; Monocytes # (A) 0.4 k/uL (0-1.0); Monocytes % (A) 4 %; Neutrophils # (A) 9.6 k/uL (1.3-7.7); Neutrophils % (A) 87 %; Platelet Count 256 k/uL (150-450); Poikilocytosis Slight; RBC 2.13 m/uL (3.80-5.40); RDW 18.2 % (11.5-15.5); WBC 11.1 k/uL (3.8-10.6)
[2022-05-08 13:42] LABS: HGB 6.8 gm/dL (11.4-16.0)
--- NOTE | 2022-05-08 16:19 | P.GSCN ---
History of Present Illness Consult date: 05/08/22 Reason for Consult: Epistaxis, blood loss anemia Requesting physician: Jessica Calderón History of present illness: This is a 81-year-old white female who presented to my office on May 06 with a history of a facial trauma. On May 04 she fell and fractured her nose and septum and had an acute left-sided epistaxis that required packing with use of a Rhino Rocket. She had significant facial contusion and bruising and we were scheduling her today to undergo a closed reduction of a nasal bone fracture and septoplasty under local anesthetic. The patient is high risk because she had a recent stent and we were keeping her on eliquist. I understand that she started Plavix this morning per her circuit board drafter along with her eliquist. She was scheduled for surgery today but prior to surgery she had to be taken to the emergency room where she had a severe epistaxis. Hemoglobin dropped to around 8 and she is requiring transfusion. Surgery was canceled. The right side of her nose was packed and the bleeding did stop. She is currently being transfused. I talked to Dr. Alas yesterday and it was essential that she stay on both blood thinners. Review of Systems - Constitutional Reports as per HPI - EENT Ears, nose, mouth and throat: Reports as per HPI - Cardiovascular Reports as per HPI - Respiratory Reports as per HPI - Gastrointestinal Reports as per HPI - Genitourinary Genitourinary: Reports as per HPI Menstruation: Reports as per HPI - Musculoskeletal Reports as per HPI - Integumentary Reports as per HPI - Neurological Reports as per HPI - Psychiatric Reports as per HPI - Endocrine Reports as per HPI - Hematologic/Lymphatic Reports easy bleeding - Allergic/Immunologic Reports as per HPI Past Medical History Past Medical History: Coronary Artery Disease (CAD), GERD/Reflux, Hyperlipidemia, Hypertension Additional Past Medical History / Comment(s): Fall 05/04/22 with significant facial trauma. Bilateral hearing aid use. DIARRHEA. HX RIGHT BREAST CANCER STAGE 1, HAD RADIATION JUL-SEP 2012. History of Any Multi-Drug Resistant Organisms: None Reported Past Surgical History: Back Surgery, Bowel Resection, Coronary Bypass/CABG, Heart Catheterization With Stent, Hysterectomy, Orthopedic Surgery, Pacemaker Additional Past Surgical History / Comment(s): CABG 3 VESSEL WITH AORTIC VALVE REPLACEMENT, heart catheterization X2 with one stent each time, RIGHT BREAST LUMPECTOMY, pacemaker, pins and screws in lumbar spine, bowel resection due to precancer, SHEMAR. Past Anesthesia/Blood Transfusion Reactions: No Reported Reaction Date of Last Stent Placement:: 05/02/22 Type of Cardiac Device: Unknown Device Placement Date:: unknown Past Psychological History: Depression Smoking Status: Never smoker Past Alcohol Use History: None Reported Past Drug Use History: None Reported - Past Family History Mother Family Medical History: Cancer Father Additional Family Medical History / Comment(s): HEART PROBLEMS. Medications and Allergies Home Medications Medication Instructions Recorded Confirmed Type Aspirin 81 mg PO DAILY 03/27/15 05/07/22 History Gabapentin 600 mg PO BID 03/27/15 05/07/22 History Losartan [Cozaar] 50 mg PO DAILY 03/27/15 05/07/22 History allopurinoL [Zyloprim] 300 mg PO HS 03/27/15 05/07/22 History Apixaban [Eliquis] 5 mg PO BID 03/25/22 05/07/22 History Furosemide [Lasix] 20 mg PO DAILY 03/25/22 05/07/22 History Potassium Chloride [Klor-Con 20] 20 meq PO DAILY 03/25/22 05/07/22 History Atorvastatin [Lipitor] 40 mg PO DAILY #90 tablet 05/03/22 05/07/22 Rx Fenofibrate Nanocrystallized 145 mg PO HS 05/07/22 05/07/22 History [Fenofibrate] Ipratropium Amalia [Ipratropium 2 spray NASAL BID PRN 05/07/22 05/07/22 History Amalia 0.03%] Magnesium 250 mg PO DAILY 05/07/22 05/07/22 History Allergies Allergy/AdvReac Type Severity Reaction Status Date / Time No Known Allergies Allergy Verified 05/07/22 23:44 Surgical - Exam Osteopathic Statement: *. No significant issues noted on an osteopathic structural exam other than those noted in the History and Physical/Consult. Vital Signs Temp Pulse Resp BP Pulse Ox 98.2 F 81 22 105/49 95 05/07/22 21:40 05/07/22 21:40 05/07/22 21:40 05/07/22 21:40 05/07/22 21:40 - General well developed, well nourished, moderate distress - Eyes PERRL, normal ocular movement - ENT Head is normocephalic, the face is symmetric. Auricles are well formed canals are clear tympanic members without bulging or retraction. Nose shows bilateral packing in place. She has a Merocel sponge pack on the right side and a Rhino Rocket on the left. Old blood is noted around the nasal orifice. No oral lesions are seen. Neck is unremarkable normal pinna, decreased hearing, deviated nasal septum - Neck no masses, trachea midline, no lymphadectomy, no venous distension - Integumentary no rash, no growths - Neurologic normal coordination, normal sensation - Musculoskeletal normal gait, normal posture - Psychiatric oriented to time, oriented to person, oriented to place, speech is normal, memory intact Results - Labs 05/08/22 12:47 05/08/22 00:13 Abnormal Lab Results - Last 24 Hours (Table) 05/07/22 05/07/22 05/08/22 Range/Units 21:48 21:48 00:13 WBC 12.4 H (3.8-10.6) k/uL RBC 2.49 L (3.80-5.40) m/uL Hgb 8.0 L D (11.4-16.0) gm/dL Hct 25.3 L (34.0-46.0) % MCV 101.6 H (80.0-100.0) fL RDW 17.3 H (11.5-15.5) % Neutrophils # 9.5 H (1.3-7.7) k/uL Lymphocytes # (1.0-4.8) k/uL APTT 21.6 L (22.0-30.0) sec Chloride (98-107) mmol/L Carbon Dioxide 20 L (22-30) mmol/L BUN 22 H (7-17) mg/dL Creatinine 1.42 H (0.52-1.04) mg/dL Glucose 150 H (74-99) mg/dL AST 39 H (14-36) U/L Crossmatch 05/08/22 05/08/22 05/08/22 Range/Units 00:13 00:13 12:47 WBC 11.1 H (3.8-10.6) k/uL RBC 2.13 L (3.80-5.40) m/uL Hgb 6.8 L* (11.4-16.0) gm/dL Hct 22.0 L (34.0-46.0) % MCV 103.7 H (80.0-100.0) fL RDW 18.2 H (11.5-15.5) % Neutrophils # 9.6 H (1.3-7.7) k/uL Lymphocytes # 0.8 L (1.0-4.8) k/uL APTT (22.0-30.0) sec Chloride 108 H (98-107) mmol/L Carbon Dioxide (22-30) mmol/L BUN 24 H (7-17) mg/dL Creatinine 1.47 H (0.52-1.04) mg/dL Glucose 129 H (74-99) mg/dL AST (14-36) U/L Crossmatch See Detail Diabetes panel 05/07/22 05/08/22 Range/Units 21:48 00:13 Sodium 140 140 (137-145) mmol/L Potassium 4.1 3.9 (3.5-5.1) mmol/L Chloride 106 108 H (98-107) mmol/L Carbon Dioxide 20 L 25 (22-30) mmol/L BUN 22 H 24 H (7-17) mg/dL Creatinine 1.42 H 1.47 H (0.52-1.04) mg/dL Glucose 150 H 129 H (74-99) mg/dL Calcium 10.1 9.9 (8.4-10.2) mg/dL AST 39 H (14-36) U/L ALT 19 (4-34) U/L Alkaline Phosphatase 41 (38-126) U/L Total Protein 6.3 (6.3-8.2) g/dL Albumin 3.9 (3.5-5.0) g/dL Calcium panel 05/07/22 05/08/22 Range/Units 21:48 00:13 Calcium 10.1 9.9 (8.4-10.2) mg/dL Albumin 3.9 (3.5-5.0) g/dL Pituitary panel 05/07/22 05/08/22 Range/Units 21:48 00:13 Sodium 140 140 (137-145) mmol/L Potassium 4.1 3.9 (3.5-5.1) mmol/L Chloride 106 108 H (98-107) mmol/L Carbon Dioxide 20 L 25 (22-30) mmol/L BUN 22 H 24 H (7-17) mg/dL Creatinine 1.42 H 1.47 H (0.52-1.04) mg/dL Glucose 150 H 129 H (74-99) mg/dL Calcium 10.1 9.9 (8.4-10.2) mg/dL Adrenal panel 05/07/22 05/08/22 Range/Units 21:48 00:13 Sodium 140 140 (137-145) mmol/L Potassium 4.1 3.9 (3.5-5.1) mmol/L Chloride 106 108 H (98-107) mmol/L Carbon Dioxide 20 L 25 (22-30) mmol/L BUN 22 H 24 H (7-17) mg/dL Creatinine 1.42 H 1.47 H (0.52-1.04) mg/dL Glucose 150 H 129 H (74-99) mg/dL Calcium 10.1 9.9 (8.4-10.2) mg/dL Total Bilirubin 0.7 (0.2-1.3) mg/dL AST 39 H (14-36) U/L ALT 19 (4-34) U/L Alkaline Phosphatase 41 (38-126) U/L Total Protein 6.3 (6.3-8.2) g/dL Albumin 3.9 (3.5-5.0) g/dL Assessment and Plan (1) Blood loss anemia Current Visit: Yes Status: Acute Code(s): D50.0 - IRON DEFICIENCY ANEMIA SECONDARY TO BLOOD LOSS (CHRONIC) SNOMED Code(s): 592650274 Plan: Surgery of course has been canceled. She is undergoing transfusion. I'm recommending a humidified face tent for her comfort. Pain control will be addressed. She'll be following up with me in the office on Thursday for pack reshma gisel. Time with Patient: Greater than 30
[2022-05-08] MEDS: HYDROcodone/APAP 5-325MG 1 EACH TAB PO PRN (17:01)
--- NOTE | 2022-05-08 19:04 | CONS ---
CONSULTATION Adelaida García is a 81-year-old lady with a known history of CAD and aortic stenosis. In about 2009 she underwent aortocoronary bypass surgery with aortic valve replacement, which was a tissue valve. She then moved to the [facility] and has moved back here recently. She saw Dr. Alas in [place] and went on to have a cardiac catheterization because of clinically what seemed to be significant aortic stenosis. He performed a transesophageal echo and also PTCA and stenting of left main on May 02, last Thursday. Procedure was performed uneventfully. She went home and on Thursday she tripped and fell on her face. There is a nasal fracture. She had epistaxis, went and saw the doctor at the emergency room in [facility]. Her nasal packing was done and she went home, had recurrent bleeding and came back in. She has been seen by ENT and she is going for surgery. She has chronic atrial fibrillation with sick sinus syndrome and underlying permanent pacemaker. However, she is on Eliquis and Plavix combination. These medicines will be held and there is a definite risk for stent thrombosis and embolic stroke; patient and her family are aware of this. However, following the surgery we will resume the Plavix but keep her off the Eliquis for a week at least. I discussed this with the patient and family. She is likely going for surgery today. At the time of my evaluation, she is resting comfortably and has what seems to be a rate of about 100, and it seems to be paced beats and also intermittent atrial fibrillation. EKG is pending . PAST MEDICAL HISTORY: 1. CAD with previous bypass surgery and aortic valve replacement in 2009. 2. Recurrent epistaxis following a fall on Thursday, which was a mechanical fall, and she has seen Dr. Doll. She is now going for surgery because of some nasal fracture and persistent epistaxis. 3. History of stenting of left main by Dr. Alas on May 02. 4. History of atrial fibrillation, on Eliquis, and underlying pacemaker for sick sinus syndrome. 5. She has history of breast cancer, bowel resection, back surgery and hysterectomy. MEDICATIONS: Medications at home include Eliquis 5 mg b.i.d., fenofibrate, Lasix, allopurinol, Cozaar, atorvastatin 40 mg daily and Plavix 75 mg daily. PHYSICAL EXAMINATION: On examination, blood pressure is 130/70, pulse rate is about 90. HEENT unremarkable. There is evidence of bruising and deformity of the nose noted. Heart exam reveals ejection systolic murmur at the base. Second heart sound is audible. Lungs reveal bilateral decent air entry. Abdomen is soft. Lower extremities reveal diminished pulses. Central nervous system is normal. IMPRESSION: 1. Mechanical fall and fracture of the nose with persistent epistaxis. 2. Coronary artery disease with recent left main stenting by Dr. Alas. This was a protected left main. 3. Coronary artery disease with prior bypass surgery and aortic valve replacement; now developed severe stenosis of aortic bioprosthesis and being considered for valve replacement. 4. Persistent atrial fibrillation with sick sinus syndrome and a pacemaker. RECOMMENDATIONS: I am recommending that we hold Eliquis and Plavix after surgery, resume Plavix as soon as possible. I explained to the patient and family the risk related to stent thrombosis and embolic stroke. They understand the details and will proceed. Prognosis remains guarded. MMODL / IJN: [id number] /
[2022-05-08 20:30] LABS: Anisocytosis Slight; HCT 26.4 % (34.0-46.0); Hypochromasia Slight; MCHC 32.8 g/dL (31.0-37.0); Macrocytosis Slight; Mean Platelet Volume 8.7; Platelet Count 229 k/uL (150-450); Poikilocytosis Slight; RDW 17.6 % (11.5-15.5)
[2022-05-08 20:41] LABS: HGB 8.7 gm/dL (11.4-16.0)
[2022-05-08 20:42] LABS: MCV 97.8 fL (80.0-100.0)
[2022-05-08] MEDS: allopurinoL 300 MG TAB PO SCH (20:49)
[2022-05-09] MEDS: SODIUM CHLORIDE 0.9% 1,000 ML IV SCH ×2 (05:18→17:59)
[2022-05-09] MEDS: HYDROcodone/APAP 5-325MG 1 EACH TAB PO PRN ×3 (05:23→21:09)
[2022-05-09] MEDS: AMOXIC-POT CLAV 875-125MG 1 EACH TAB PO SCH ×2 (07:27→21:11)
[2022-05-09] MEDS: LOSARTAN 50 MG TAB PO SCH (07:28)
[2022-05-09] MEDS: ATORVASTATIN 40 MG TAB PO SCH (07:28)
[2022-05-09] MEDS: GABAPENTIN 300 MG CAP PO SCH ×2 (07:28→21:11)
[2022-05-09] MEDS: CLOPIDOGREL 75 MG TAB PO SCH (07:28)
[2022-05-09 08:41] LABS: HCT 27.4 % (37.2-46.3); HGB 8.4 g/dL (12.0-15.0); MCH 30.7 pg (27.0-32.0); MCHC 30.7 g/dL (32.0-37.0); Mean Platelet Volume 10.5 fL (9.5-12.2); NRBC Per 100 WBC 0.4 /100 WBCS (0.0-0.0); Platelet Count 214 X 10*3/uL (140-440); RBC 2.74 X 10*6/uL (4.10-5.20); RDW 19.2 % (11.5-14.5); WBC 11.26 X 10*3/uL (4.50-10.00)
[2022-05-09 09:12] LABS: African American GFR (CKD) 70.5 (60.0-200.0); Albumin 3.4 g/dL (3.8-4.9); Albumin/Globulin Ratio 1.89 (1.60-3.17); Anion Gap 9.5 mmol/L (10.00-18.00); Blood Urea Nitrogen 14.4 mg/dL (9.0-27.0); Calcium 8.8 mg/dL (8.7-10.3); Carbon Dioxide 20.5 mmol/L (20.0-27.5); Globulin 1.8 g/dL (1.6-3.3); Non-African American GFR(CKD) 60.8 (60.0-200.0); Potassium 4.1 mmol/L (3.5-5.5); Total Bilirubin 0.5 mg/dL (0.30-1.20); Total Protein 5.2 g/dL (6.2-8.2)
[2022-05-09] MEDS: APIXABAN 5 MG TAB PO SCH ×2 (11:45→21:11)
--- NOTE | 2022-05-09 12:36 | P.PN ---
Subjective This is a 81-year-old female with a past medical history of coronary artery disease status post 2 vessel CABG (SVG to RCA and PORTILLO to LAD) in 2009 and PCI of the left main in 05/02/2022, bioprosthetic aortic valve replacement with severe aortic stenosis noted on SHEMAR on 05/02/2022, persistent atrial fibrillation, sick sinus syndrome status post pacemaker implantation, hypertension, hyperlipidemia, gout, bowel resection,breast cancer, orthopedic history with screws placed in her back. She follows in the office with Dr. Alas. We have been asked to see the patient in consultation for recent stent, antiplatelets, anticoagulation management. Patient presents emergency department with complaints of mechanical fall and fell on her face resulting in epitaxis and nasal fracture. She came to the ER for further evaluation. She was found to have a hemoglobin is 6.8. Received 1 unit of PRBCs. 05/09/2022 Patient seen and examined at bedside, no acute distress. She continues to have some facial pain. No chest pain. Some shortness of breath. At this time, no plan for surgery and she was restarted on Plavix. GENERAL: In no acute distress. HEENT: bruising around eye. Rhino Rocket present NECK: Supple without JVD LUNGS: Breath sounds clear to auscultation bilaterally. Respiration equal and unlabored. No wheezes, rales or rhonchi. HEART: Regular rate and rhythm. S1 and S2 heard. EXTREMITIES: Normal range of motion, no edema. No clubbing or cyanosis. Peripheral pulses intact. ASSESSMENT Mechanical fall Epitaxis Anemia Coronary artery disease status post 2 vessel CABG (SVG to RCA and PORTILLO to LAD) in 2009 and PCI of the left main in 05/02/2022 History of Bioprosthetic aortic valve replacement Severe aortic stenosis noted on SHEMAR on 05/02/2022 Persistent atrial fibrillation Sick sinus syndrome status post pacemaker implantation Hypertension Hyperlipidemia History of gout History of bowel resection History of breast cancer PLAN No plans for surgery at this time we will continue Eliquis and Plavix. Continue home cardiac medications Follow up with Dr. Alas as scheduled on 05/13/2022 Please re-consult if needed. Nurse Practitioner note has been reviewed, I agree with a documented findings and plan of care. Patient was seen and examined. Objective - Vital Signs Vital signs: Vital Signs Temp 98 F 05/08/22 13:05 Pulse 85 05/08/22 13:05 Resp 16 05/08/22 13:05 BP 167/82 05/08/22 13:05 Pulse Ox 99 05/08/22 13:05 FiO2 Intake & Output 05/07/22 05/08/22 05/08/22 18:59 06:59 18:59 Weight 61.235 kg 61.235 kg - Labs CBC & Chem 7: 05/09/22 05:59 05/09/22 05:59 Labs: Abnormal Lab Results - Last 24 Hours (Table) 05/07/22 05/07/22 05/08/22 Range/Units 21:48 21:48 00:13 WBC 12.4 H (3.8-10.6) k/uL RBC 2.49 L (3.80-5.40) m/uL Hgb 8.0 L D (11.4-16.0) gm/dL Hct 25.3 L (34.0-46.0) % MCV 101.6 H (80.0-100.0) fL RDW 17.3 H (11.5-15.5) % Neutrophils # 9.5 H (1.3-7.7) k/uL Lymphocytes # (1.0-4.8) k/uL APTT 21.6 L (22.0-30.0) sec Chloride (98-107) mmol/L Carbon Dioxide 20 L (22-30) mmol/L BUN 22 H (7-17) mg/dL Creatinine 1.42 H (0.52-1.04) mg/dL Glucose 150 H (74-99) mg/dL AST 39 H (14-36) U/L Crossmatch 05/08/22 05/08/22 05/08/22 Range/Units 00:13 00:13 12:47 WBC 11.1 H (3.8-10.6) k/uL RBC 2.13 L (3.80-5.40) m/uL Hgb 6.8 L* (11.4-16.0) gm/dL Hct 22.0 L (34.0-46.0) % MCV 103.7 H (80.0-100.0) fL RDW 18.2 H (11.5-15.5) % Neutrophils # 9.6 H (1.3-7.7) k/uL Lymphocytes # 0.8 L (1.0-4.8) k/uL APTT (22.0-30.0) sec Chloride 108 H (98-107) mmol/L Carbon Dioxide (22-30) mmol/L BUN 24 H (7-17) mg/dL Creatinine 1.47 H (0.52-1.04) mg/dL Glucose 129 H (74-99) mg/dL AST (14-36) U/L Crossmatch See Detail
--- NOTE | 2022-05-09 12:37 | P.PN ---
Subjective This is a 81-year-old female with a past medical history of coronary artery disease status post 2 vessel CABG (SVG to RCA and PORTILLO to LAD) in 2009 and PCI of the left main in 05/02/2022, bioprosthetic aortic valve replacement with severe aortic stenosis noted on SHEMAR on 05/02/2022, persistent atrial fibrillation, sick sinus syndrome status post pacemaker implantation, hypertension, hyperlipidemia, gout, bowel resection,breast cancer, orthopedic history with screws placed in her back. She follows in the office with Dr. Alas. We have been asked to see the patient in consultation for recent stent, antiplatelets, anticoagulation management. Patient presents emergency department with complaints of mechanical fall and fell on her face resulting in epitaxis and nasal fracture. She came to the ER for further evaluation. She was found to have a hemoglobin is 6.8. Received 1 unit of PRBCs. 05/09/2022 Patient seen and examined at bedside, no acute distress. She continues to have some facial pain. No chest pain. Some shortness of breath. At this time, no plan for surgery and she was restarted on Plavix. GENERAL: In no acute distress. HEENT: bruising around eye. Rhino Rocket present NECK: Supple without JVD LUNGS: Breath sounds clear to auscultation bilaterally. Respiration equal and unlabored. No wheezes, rales or rhonchi. HEART: Regular rate and rhythm. S1 and S2 heard. EXTREMITIES: Normal range of motion, no edema. No clubbing or cyanosis. Peripheral pulses intact. ASSESSMENT Mechanical fall Epitaxis Anemia Coronary artery disease status post 2 vessel CABG (SVG to RCA and PORTILLO to LAD) in 2009 and PCI of the left main in 05/02/2022 History of Bioprosthetic aortic valve replacement Severe aortic stenosis noted on SHEMAR on 05/02/2022 Persistent atrial fibrillation Sick sinus syndrome status post pacemaker implantation Hypertension Hyperlipidemia History of gout History of bowel resection History of breast cancer PLAN No plans for surgery at this time we will continue Eliquis and Plavix. Continue home cardiac medications Follow up with Dr. Alas as scheduled on 05/13/2022 Please re-consult if needed. Nurse Practitioner note has been reviewed, I agree with a documented findings and plan of care. Patient was seen and examined. Objective - Vital Signs Vital signs: Vital Signs Temp 97.7 F 05/09/22 11:43 Pulse 84 05/09/22 11:43 Resp 18 05/09/22 11:43 BP 144/59 05/09/22 11:43 Pulse Ox 98 05/09/22 11:43 FiO2 40 05/09/22 09:02 Intake & Output 05/08/22 05/09/22 05/09/22 18:59 06:59 18:59 Intake Total 310 1000 Balance 310 1000 Weight 61.235 kg Intake: Intake, IV Titration 1000 Amount Sodium Chloride 0.9% 1, 1000 000 ml @ 100 mls/hr IV . Q10H [facility] Rx#:[id number] Blood Product 310 Rc As-1 Unit 310 [id number] Other: Voiding Method Toilet Toilet Diaper # Voids 1 3 - Labs CBC & Chem 7: 05/09/22 05:59 05/09/22 05:59 Labs: Abnormal Lab Results - Last 24 Hours (Table) 05/08/22 05/08/22 05/08/22 Range/Units 00:13 12:47 20:16 WBC 11.1 H 12.0 H (3.8-10.6) k/uL RBC 2.13 L 2.70 L (3.80-5.40) m/uL Hgb 6.8 L* 8.7 L D (11.4-16.0) gm/dL Hct 22.0 L 26.4 L (34.0-46.0) % MCV 103.7 H (80.0-100.0) fL MCHC (32.0-37.0) g/dL RDW 18.2 H 17.6 H (11.5-15.5) % Absolute Nucleated RBC (0.00-0.00) X 10*3/uL Neutrophils # 9.6 H (1.3-7.7) k/uL Lymphocytes # 0.8 L (1.0-4.8) k/uL NRBC/100 WBC Diff (0.0-0.0) /100 WBCS Chloride (96-109) mmol/L Anion Gap (10.00-18.00) mmol/L Alkaline Phosphatase (41-126) U/L Total Protein (6.2-8.2) g/dL Albumin (3.8-4.9) g/dL Crossmatch See Detail 05/09/22 05/09/22 Range/Units 05:59 05:59 WBC 11.26 H (3.8-10.6) k/uL RBC 2.74 L (3.80-5.40) m/uL Hgb 8.4 L (11.4-16.0) gm/dL Hct 27.4 L (34.0-46.0) % MCV 100.0 H (80.0-100.0) fL MCHC 30.7 L (32.0-37.0) g/dL RDW 19.2 H (11.5-15.5) % Absolute Nucleated RBC 0.05 H (0.00-0.00) X 10*3/uL Neutrophils # (1.3-7.7) k/uL Lymphocytes # (1.0-4.8) k/uL NRBC/100 WBC Diff 0.4 H (0.0-0.0) /100 WBCS Chloride 110 H (96-109) mmol/L Anion Gap 9.50 L (10.00-18.00) mmol/L Alkaline Phosphatase 28 L (41-126) U/L Total Protein 5.2 L (6.2-8.2) g/dL Albumin 3.4 L (3.8-4.9) g/dL Crossmatch
[2022-05-09 16:21] VITALS: BMI 26.4
--- NOTE | 2022-05-09 18:29 | P.PN ---
Subjective Progress Note Date: 05/09/22 Hospital course: Patient is a very pleasant 81-year-old female with a past medical history of CAD with recent stent placement to left main coronary artery on 05/02/22 on Plavix and Eliquis, CABG 3, bioprosthetic aortic valve with aortic valve stenosis, status post pacemaker, hypertension, and hyperlipidemia. She presented to the emergency department secondary to uncontrolled epistaxis. Patient sustained an accidental trip and fall on Thursday and underwent full evaluation and diagnosed with a nasal fracture and underwent nasal packing and discharged home where she was scheduled for surgical intervention 05/08/22 by ENT. On the evening of 05/07/22 patient reports experiencing increased pain in her nose accompanied by uncontrolled nosebleed along with blood flowing down the back of her throat. Nasal packing was completed in the emergency department resulting in successful controlling of bleeding. Patient did have a noted drop in hemoglobin from 10.3 on 05/01/22 down to 8.0. Patient was admitted under our services with consultation to ENT and cardiology. Patient underwent monitoring overnight. Repeat hemoglobin 6.8. Orders placed for transfusion 1 unit PRBCs. Posttra nsfusion hemoglobin stable at 8.7 with repeat of 8.4. Physical exam: Patient seen and fully evaluated at bedside this morning. Hemoglobin has remained stable posttransfusion. Patient denies any further episodes of bleeding. Patient started back on anticoagulation with Eliquis this morning. We will continue to monitor for 24 hours after resumption of Eliquis to ensure no refractory episodes of epistaxis occur. Vital signs reviewed and stable. General: Nontoxic, no distress and appears stated age. Derm: Skin warm and dry, normal coloration for ethnicity. Head: Normocephalic and symmetric. Periorbital ecchymosis bilaterally along with bruising to nasal bridge. Packing in place to bilateral nares with dried blood, no active bleeding noted at this time. Eyes: EOMs intact, no lid lag, and anicteric sclera. Periorbital ecchymosis bilaterally along with bruising to nasal bridge Mouth: no lip lesions, mucus membranes moist Cardiovascular: regular rate and rhythm with normal S1S2, systolic murmur, positive posterior tibial pulses bilaterally, and cap refill < 2 seconds. Pacemaker left anterior chest. Lungs: Respirations even, regular, and unlabored on room air. Lungs CTA lawanda aterally, no rhonchi, no rales, no wheezing, and no accessory muscle usage. Abdominal: soft, nontender to palpation, no guarding, no appreciable organomegaly Ext: ROM intact. No gross muscle atrophy, no edema, no contractures Neuro: Speech clear, face symmetrical and CN II-XII grossly intact with no noted focal neuro deficits Psych: Alert and oriented to person, place, time, and situation. Appropriate and pleasant affect. Assessment and Plan of Care: Acute blood loss anemia Refractory Epistaxis secondary to mechanical fall resulting in facial trauma, nasal bone fracture occurring 05/04/22 -Nasal packing and greater than 72 hours, continue prophylactic Augmentin twice daily. -ENT following, stating no surgery at this time patient to follow-up outpatient in their office Thursday morning for removal of packing. -Monitor CBC closely and transfuse as needed for hemoglobin less than 7. -Secondary to recent stent placement patient continuing Plavix and Eliquis resumed this morning. -Gentle IV fluid hydration. History of CAD with recent stent placement to left main coronary artery on . History of CABG 3 History of bioprosthetic aortic valve Status post pacemaker placement Hypertension Hyperlipidemia -Secondary to recent stent placement patient continuing Plavix and Eliquis at t his time. -Cardiology consulted secondary to recent stenting and need for current holding of anticoagulation. -Telemetry monitoring. CODE STATUS: Full code DVT prophylaxis: Eliquis Discussed with: Patient, patient and RN Anticipated discharge date: Possibly tomorrow morning if hemoglobin remains stable after resuming Eliquis Anticipated discharge place: Home A total of 35 minutes was spent on the care of this complex patient more than 50% of the time was spent in counseling and care coordination. Objective - Vital Signs Vital signs: Vital Signs Temp 98.2 F 05/09/22 04:04 Pulse 86 05/09/22 07:26 Resp 18 05/09/22 04:04 BP 160/77 05/09/22 07:26 Pulse Ox 95 05/09/22 04:04 FiO2 40 05/08/22 16:50 Intake & Output 05/08/22 05/09/22 05/09/22 18:59 06:59 18:59 Intake Total 310 1000 Balance 310 1000 Weight 61.235 kg Intake: Intake, IV Titration 1000 Amount Sodium Chloride 0.9% 1, 1000 000 ml @ 100 mls/hr IV . Q10H [facility] Rx#:[id number] Blood Product 310 Rc As-1 Unit 310 [id number] Other: Voiding Method Toilet # Voids 1 3 - Labs CBC & Chem 7: 05/09/22 05:59 05/09/22 05:59 Labs: Abnormal Lab Results - Last 24 Hours (Table) 05/08/22 05/08/22 05/08/22 Range/Units 00:13 12:47 20:16 WBC 11.1 H 12.0 H (3.8-10.6) k/uL RBC 2.13 L 2.70 L (3.80-5.40) m/uL Hgb 6.8 L* 8.7 L D (11.4-16.0) gm/dL Hct 22.0 L 26.4 L (34.0-46.0) % MCV 103.7 H (80.0-100.0) fL RDW 18.2 H 17.6 H (11.5-15.5) % Neutrophils # 9.6 H (1.3-7.7) k/uL Lymphocytes # 0.8 L (1.0-4.8) k/uL Crossmatch See Detail
[2022-05-09] MEDS: allopurinoL 300 MG TAB PO SCH (21:11)
[2022-05-10] MEDS: LOSARTAN 50 MG TAB PO SCH (06:00)
[2022-05-10] MEDS: HYDROcodone/APAP 5-325MG 1 EACH TAB PO PRN ×2 (06:00→14:06)
[2022-05-10 08:52] LABS: HCT 24.2 % (37.2-46.3); HGB 7.4 g/dL (12.0-15.0); MCH 30.6 pg (27.0-32.0); MCHC 30.6 g/dL (32.0-37.0); Mean Platelet Volume 10.6 fL (9.5-12.2); NRBC Per 100 WBC 0.4 /100 WBCS (0.0-0.0); Platelet Count 177 X 10*3/uL (140-440); RBC 2.42 X 10*6/uL (4.10-5.20); RDW 19.2 % (11.5-14.5); WBC 7.02 X 10*3/uL (4.50-10.00)
[2022-05-10] MEDS: SODIUM CHLORIDE 0.9% 1,000 ML IV SCH ×3 (09:10→23:12)
[2022-05-10] MEDS: CLOPIDOGREL 75 MG TAB PO SCH (09:11)
[2022-05-10] MEDS: GABAPENTIN 300 MG CAP PO SCH ×2 (09:11→21:19)
[2022-05-10] MEDS: APIXABAN 5 MG TAB PO SCH ×2 (09:11→21:19)
[2022-05-10] MEDS: ATORVASTATIN 40 MG TAB PO SCH (09:11)
[2022-05-10] MEDS: AMOXIC-POT CLAV 875-125MG 1 EACH TAB PO SCH ×2 (09:13→21:19)
--- NOTE | 2022-05-10 15:43 | P.PN ---
Subjective Progress Note Date: 05/10/22 Principal diagnosis: Epistaxis I was called earlier today stating that the patient's having a nosebleed. Upon questioning the patient turns out that she is is been having a scant amount of light serosanguineous drainage from her nose. Minimal drainage is noted. No epistaxis is seen. Her blood pressure has been elevated. She is resting comfortably. She is requesting pack removal. Objective - Vital Signs Vital signs: Vital Signs Temp 97.8 F 05/10/22 13:12 Pulse 75 05/10/22 13:12 Resp 19 05/10/22 13:12 BP 167/80 05/10/22 13:12 Pulse Ox 98 05/10/22 13:12 FiO2 40 05/09/22 09:02 Intake & Output 05/09/22 05/10/22 05/10/22 18:59 06:59 18:59 Intake Total 2390 Balance 2390 Weight 61.235 kg Intake: Intake, IV Titration 850 Amount Sodium Chloride 0.9% 1, 850 000 ml @ 100 mls/hr IV . Q10H [facility] Rx#:[id number] Oral 1540 Other: Voiding Method Toilet Toilet Toilet Diaper # Voids 4 1 2 # Bowel Movements 1 - Constitutional General appearance: Present: average body habitus - EENT EENT Comment(s): Head is normocephalic the face is symmetric no abnormal movements noted. Auricles are well formed. Canals are clear. Tympanic membranes are without bulging or retraction. Nose shows bilateral packing in place. No bleeding noted. Mouth and throat demonstrates a large of the posterior oropharynx. Neck is unremarkable. Eyes: Present: PERRLA ENT: Present: hard of hearing, normal oropharynx. Absent: hearing grossly normal Ears: bilateral: normal - Neck Neck: Present: normal ROM - Cardiovascular Rhythm: regular - Integumentary Integumentary: Present: normal, normal turgor - Neurologic Neurologic: Present: CNII-XII intact - Musculoskeletal Musculoskeletal: Present: gait normal, generalized weakness, strength equal bilaterally - Psychiatric Psychiatric: Present: A&O x's 3, appropriate affect, intact judgment & insight - Labs CBC & Chem 7: 05/10/22 05:12 05/09/22 05:59 Labs: Abnormal Lab Results - Last 24 Hours (Table) 05/08/22 05/10/22 Range/Units 00:13 05:12 RBC 2.42 L (4.10-5.20) X 10*6/uL Hgb 7.4 L (12.0-15.0) g/dL Hct 24.2 L (37.2-46.3) % MCV 100.0 H (80.0-97.0) fL MCHC 30.6 L (32.0-37.0) g/dL RDW 19.2 H (11.5-14.5) % Absolute Nucleated RBC 0.03 H (0.00-0.00) X 10*3/uL NRBC/100 WBC Diff 0.4 H (0.0-0.0) /100 WBCS Crossmatch See Detail Assessment and Plan (1) Blood loss anemia Current Visit: Yes Status: Acute Code(s): D50.0 - IRON DEFICIENCY ANEMIA SECONDARY TO BLOOD LOSS (CHRONIC) SNOMED Code(s): 497762782 Plan: Patient did not have any bleeding. She's having a serous sanguinous drainage from her nose which is normal after pack placement. Her hemoglobin did drop down to the 70s and I'm recommending 2 more units of blood transfusion. We will be watching her closely. Anticipate pack removal on Thursday. Time with Patient: Greater than 30
[2022-05-10] MEDS: amLODIPine 5 MG TAB PO SCH (16:39)
--- NOTE | 2022-05-10 16:49 | P.PN ---
Subjective Progress Note Date: 05/10/22 Hospital course: Patient is a very pleasant 81-year-old female with a past medical history of CAD with recent stent placement to left main coronary artery on 05/02/22 on Plavix and Eliquis, CABG 3, bioprosthetic aortic valve with aortic valve stenosis, status post pacemaker, hypertension, and hyperlipidemia. She presented to the emergency department secondary to uncontrolled epistaxis. Patient sustained an accidental trip and fall on Thursday and underwent full evaluation and diagnosed with a nasal fracture and underwent nasal packing and discharged home where she was scheduled for surgical intervention 05/08/22 by ENT. On the evening of 05/07/22 patient reports experiencing increased pain in her nose accompanied by uncontrolled nosebleed along with blood flowing down the back of her throat. Nasal packing was completed in the emergency department resulting in successful controlling of bleeding. Patient did have a noted drop in hemoglobin from 10.3 on 05/01/22 down to 8.0. Patient was admitted under our services with consultation to ENT and cardiology. Patient underwent monitoring overnight. Repeat hemoglobin 6.8. Orders placed for transfusion 1 unit PRBCs. Posttra nsfusion hemoglobin stable at 8.7 with repeat of 8.4. Patient again reporting refractory epistaxis in morning hemoglobin 7.4. Physical exam: Patient seen and fully evaluated at bedside this morning. She reports having intermittent episodes of blood seeping from the packing of right nares through out the night. Patient denies having any other complaints including headache, lightheadedness, dizziness, chest pain, palpitations, shortness of breath, or experiencing any numbness/tubing/weakness in her extremities. Morning hemoglobin 7.4. Bleeding is currently controlled. RN notified ENT. At this time we will continue anticoagulation with Eliquis and Plavix secondary to recent stent placement as recommended by cardiology. We will repeat hemoglobin this afternoon and again tomorrow morning to monitor closely for further episodes of epistaxis or further drop in hemoglobin. Awaiting ENT recommendations. Vital signs reviewed and stable. General: Nontoxic, no distress and appears stated age. Derm: Skin warm and dry, normal coloration for ethnicity. Head: Normocephalic and symmetric. Periorbital ecchymosis bilaterally along with bruising to nasal bridge. Packing in place to bilateral nares with dried blood, no active bleeding noted at this time. Eyes: EOMs intact, no lid lag, and anicteric sclera. Periorbital ecchymosis bilaterally along with bruising to nasal bridge Mouth: no lip lesions, mucus membranes moist Cardiovascular: regular rate and rhythm with normal S1S2, systolic murmur, positive posterior tibial pulses bilaterally, and cap refill < 2 seconds. Pacemaker left anterior chest. Lungs: Respirations even, regular, and unlabored on room air. Lungs CTA bila terally, no rhonchi, no rales, no wheezing, and no accessory muscle usage. Abdominal: soft, nontender to palpation, no guarding, no appreciable organomegaly Ext: ROM intact. No gross muscle atrophy, no edema, no contractures Neuro: Speech clear, face symmetrical and CN II-XII grossly intact with no noted focal neuro deficits Psych: Alert and oriented to person, place, time, and situation. Appropriate and pleasant affect. Assessment and Plan of Care: Acute blood loss anemia Refractory Epistaxis secondary to mechanical fall resulting in facial trauma, nasal bone fracture occurring 05/04/22 -Nasal packing and greater than 72 hours, continue prophylactic Augmentin twice daily. -ENT following, stating no surgery at this time patient to follow-up outpatient in their office Thursday for removal of packing. -Monitor CBC closely and transfuse as needed for hemoglobin less than 7. -Secondary to recent stent placement patient continuing Plavix and Eliquis resumed this morning. -Gentle IV fluid hydration. History of CAD with recent stent placement to left main coronary artery on 2. History of CABG 3 History of bioprosthetic aortic valve Status post pacemaker placement Hypertension Hyperlipidemia -Secondary to recent stent placement patient continuing Plavix and Eliquis at th is time. -Cardiology consulted secondary to recent stenting and need for current holding of anticoagulation. -Telemetry monitoring. CODE STATUS: Full code DVT prophylaxis: Eliquis Discussed with: Patient and RN Anticipated discharge date: Possibly tomorrow morning if hemoglobin remains stable and no further episodes of epistaxis Anticipated discharge place: Home A total of 35 minutes was spent on the care of this complex patient more than 50% of the time was spent in counseling and care coordination. Objective - Vital Signs Vital signs: Vital Signs Temp 97.4 F L 05/10/22 05:00 Pulse 69 05/10/22 05:00 Resp 16 05/10/22 05:00 BP 182/68 05/10/22 05:00 Pulse Ox 96 05/10/22 05:00 FiO2 40 05/09/22 09:02 Intake & Output 05/09/22 05/10/22 05/10/22 18:59 06:59 18:59 Intake Total 2390 Balance 2390 Weight 61.235 kg Intake: Intake, IV Titration 850 Amount Sodium Chloride 0.9% 1, 850 000 ml @ 100 mls/hr IV . Q10H [facility] Rx#:[id number] Oral 1540 Other: Voiding Method Toilet Toilet Diaper # Voids 4 1 - Labs CBC & Chem 7: 05/10/22 05:12 05/09/22 05:59 Labs: Abnormal Lab Results - Last 24 Hours (Table) 05/09/22 05/09/22 Range/Units 05:59 05:59 WBC 11.26 H (4.50-10.00) X 10*3/uL RBC 2.74 L (4.10-5.20) X 10*6/uL Hgb 8.4 L (12.0-15.0) g/dL Hct 27.4 L (37.2-46.3) % MCV 100.0 H (80.0-97.0) fL MCHC 30.7 L (32.0-37.0) g/dL RDW 19.2 H (11.5-14.5) % Absolute Nucleated RBC 0.05 H (0.00-0.00) X 10*3/uL NRBC/100 WBC Diff 0.4 H (0.0-0.0) /100 WBCS Chloride 110 H (96-109) mmol/L Anion Gap 9.50 L (10.00-18.00) mmol/L Alkaline Phosphatase 28 L (41-126) U/L Total Protein 5.2 L (6.2-8.2) g/dL Albumin 3.4 L (3.8-4.9) g/dL
[2022-05-10] MEDS: FENOFIBRATE 160 MG TAB PO SCH (21:20)
[2022-05-10] MEDS: allopurinoL 300 MG TAB PO SCH (21:20)
[2022-05-10] MEDS ORDERED: hydrALAZINE HCL 25 MG TAB PO STA (23:26)
[2022-05-11 01:00] LABS: Anisocytosis Slight; Basophils % (A) 0 %; Eosinophils # (A) 0.3 k/uL (0-0.7); Eosinophils % (A) 3 %; HGB 10.9 gm/dL (11.4-16.0); Hypochromasia Slight; Lymphocytes # (A) 1.1 k/uL (1.0-4.8); Lymphocytes % (A) 13 %; MCH 31.4 pg (25.0-35.0); MCHC 33.1 g/dL (31.0-37.0); MCV 94.8 fL (80.0-100.0); Macrocytosis Slight; Mean Platelet Volume 8.2; Monocytes # (A) 0.5 k/uL (0-1.0); Monocytes % (A) 5 %; Neutrophils # (A) 6.9 k/uL (1.3-7.7); Neutrophils % (A) 78 %; Platelet Count 194 k/uL (150-450); Poikilocytosis Moderate; RBC 3.48 m/uL (3.80-5.40); RDW 17.9 % (11.5-15.5); WBC 8.9 k/uL (3.8-10.6)
[2022-05-11] MEDS: ATORVASTATIN 40 MG TAB PO SCH (07:25)
[2022-05-11] MEDS: LOSARTAN 50 MG TAB PO SCH (07:25)
[2022-05-11] MEDS: amLODIPine 5 MG TAB PO SCH (07:25)
[2022-05-11] MEDS: APIXABAN 5 MG TAB PO SCH ×2 (07:25→21:05)
[2022-05-11] MEDS: AMOXIC-POT CLAV 875-125MG 1 EACH TAB PO SCH ×2 (07:25→21:05)
[2022-05-11] MEDS: GABAPENTIN 300 MG CAP PO SCH ×2 (07:25→21:05)
[2022-05-11] MEDS: CLOPIDOGREL 75 MG TAB PO SCH (07:25)
[2022-05-11] MEDS: HYDROcodone/APAP 5-325MG 1 EACH TAB PO PRN ×2 (10:12→18:36)
--- NOTE | 2022-05-11 11:11 | P.PN ---
Subjective Progress Note Date: 05/11/22 Hospital course: Patient is a very pleasant 81-year-old female with a past medical history of CAD with recent stent placement to left main coronary artery on 05/02/22 on Plavix and Eliquis, CABG 3, bioprosthetic aortic valve with aortic valve stenosis, status post pacemaker, hypertension, and hyperlipidemia. She presented to the emergency department secondary to uncontrolled epistaxis. Patient sustained an accidental trip and fall on Thursday and underwent full evaluation and diagnosed with a nasal fracture and underwent nasal packing and discharged home where she was scheduled for surgical intervention 05/08/22 by ENT. On the evening of 05/07/22 patient reports experiencing increased pain in her nose accompanied by uncontrolled nosebleed along with blood flowing down the back of her throat. Nasal packing was completed in the emergency department resulting in successful controlling of bleeding. Patient did have a noted drop in hemoglobin from 10.3 on 05/01/22 down to 8.0. Patient was admitted under our services with consultation to ENT and cardiology. Patient underwent monitoring overnight. Repeat hemoglobin 6.8. Orders placed for transfusion 1 unit PRBCs. Posttra nsfusion hemoglobin stable at 8.7 with repeat of 8.4. Patient again reporting refractory epistaxis in morning hemoglobin 7.4, ENT reevaluated and ordered for 2 additional units of PRBCs. Currently hemoglobin is stable at 10.5, however patient reports she continues to have seepage from right nares. Physical exam: Patient seen and fully evaluated at bedside this morning. She continues to report bleeding/seepage from right nares. Hemoglobin currently stable at 10.5. Patient was having episodes of hypertension and started on moderate pain 5 mg daily in addition to losartan. Patient was sitting up in the chair this morning. She is currently denying having any headache, lightheadedness, dizziness, chest pain, palpitations, or shortness of breath. No active bleeding noted at this time. We will continue anticoagulation with Eliquis and Plavix and monitor closely for further episodes of epistaxis or further drop in hemoglobin. If bleeding remains controlled and hemoglobin remains stable plan for likely discharge tomorrow morning. General: Nontoxic, no distress and appears stated age. Derm: Skin warm and dry, normal coloration for ethnicity. Head: Normocephalic and symmetric. Periorbital ecchymosis bilaterally along with bruising to nasal bridge. Packing in place to bilateral nares with dried blood, no active bleeding noted at this time. Eyes: EOMs intact, no lid lag, and anicteric sclera. Periorbital ecchymosis bilaterally along with bruising to nasal bridge Mouth: no lip lesions, mucus membranes moist Cardiovascular: regular rate and rhythm with normal S1S2, systolic murmur, positive posterior tibial pulses bilaterally, and cap refill < 2 seconds. Pacemaker left anterior chest. Lungs: Respirations even, regular, and unlabored on room air. Lungs CTA bilatera lly, no rhonchi, no rales, no wheezing, and no accessory muscle usage. Abdominal: soft, nontender to palpation, no guarding, no appreciable organomegaly Ext: ROM intact. No gross muscle atrophy, no edema, no contractures Neuro: Speech clear, face symmetrical and CN II-XII grossly intact with no noted focal neuro deficits Psych: Alert and oriented to person, place, time, and situation. Appropriate and pleasant affect. Assessment and Plan of Care: Acute blood loss anemia Refractory Epistaxis secondary to mechanical fall resulting in facial trauma, nasal bone fracture occurring 05/04/22 -Continue prophylactic Augmentin twice daily. -ENT following, stating no surgery at this time patient to follow-up outpatient in their office Thursday for removal of packing. -Monitor CBC closely and transfuse as needed for hemoglobin less than 7. -Secondary to recent stent placement patient continuing Plavix and Eliquis resumed this morning. History of CAD with recent stent placement to left main coronary artery on 05/02/22. History of CABG 3 History of bioprosthetic aortic valve Status post pacemaker placement Hypertension Hyperlipidemia -Secondary to recent stent placement patient continuing Plavix and Eliquis at this time. -Cardiology consulted secondary to recent stenting and need for current holding of anticoagulation. -Telemetry monitoring. CODE STATUS: Full code DVT prophylaxis: Eliquis Discussed with: Patient and RN Anticipated discharge date: Possibly tomorrow morning if hemoglobin remains stable and no further episodes of epistaxis Anticipated discharge place: Home A total of 35 minutes was spent on the care of this complex patient more than 50% of the time was spent in counseling and care coordination. Patient seen by nurse practitioner independently, I agree with assessment and plan as documented above Thang Henderson MD [facility] Objective - Vital Signs Vital signs: Vital Signs Temp 97.8 F 05/11/22 05:00 Pulse 76 05/11/22 05:00 Resp 16 05/11/22 05:00 BP 186/93 05/11/22 05:00 Pulse Ox 95 05/11/22 05:00 FiO2 40 05/09/22 09:02 Intake & Output 05/10/22 05/11/22 05/11/22 18:59 06:59 18:59 Intake Total 360 620 Balance 360 620 Intake: Oral 360 Blood Product 0 620 Rc As-1 Unit 310 [id number] Rc Irr As1 Unit 0 310 [id number] Other: Voiding Method Toilet Toilet # Voids 240 2 # Bowel Movements 1 1 - Labs CBC & Chem 7: 05/11/22 05:34 05/09/22 05:59 Labs: Abnormal Lab Results - Last 24 Hours (Table) 05/08/22 05/10/22 05/11/22 Range/Units 00:13 05:12 00:36 RBC 2.42 L 3.48 L (4.10-5.20) X 10*6/uL Hgb 7.4 L 10.9 L (12.0-15.0) g/dL Hct 24.2 L 33.0 L (37.2-46.3) % MCV 100.0 H (80.0-97.0) fL MCHC 30.6 L (32.0-37.0) g/dL RDW 19.2 H 17.9 H (11.5-14.5) % Absolute Nucleated RBC 0.03 H (0.00-0.00) X 10*3/uL NRBC/100 WBC Diff 0.4 H (0.0-0.0) /100 WBCS Crossmatch See Detail
[2022-05-11 12:23] LABS: Basophils # (A) 0.04 X 10*3/uL (0.00-0.10); Basophils % (A) 0.4 %; Eosinophils # (A) 0.28 X 10*3/uL (0.04-0.35); Eosinophils % (A) 2.8 %; HCT 33.9 % (37.2-46.3); HGB 10.5 g/dL (12.0-15.0); Lymphocytes # (A) 1.09 X 10*3/uL (0.90-5.00); MCH 29.7 pg (27.0-32.0); Mean Platelet Volume 10.6 fL (9.5-12.2); Monocytes # (A) 0.75 X 10*3/uL (0.20-1.00); Monocytes % (A) 7.6 %; NRBC Per 100 WBC 0.4 /100 WBCS (0.0-0.0); Neutrophils # (A) 7.66 X 10*3/uL (1.80-7.70); Neutrophils % (A) 77.2 %; Platelet Count 191 X 10*3/uL (140-440); RBC 3.53 X 10*6/uL (4.10-5.20); RDW 20.4 % (11.5-14.5); WBC 9.92 X 10*3/uL (4.50-10.00)
[2022-05-11] MEDS: SODIUM CHLORIDE 0.9% 1,000 ML IV SCH (12:23)
[2022-05-11] MEDS: allopurinoL 300 MG TAB PO SCH (21:05)
[2022-05-11] MEDS: FENOFIBRATE 160 MG TAB PO SCH (21:05)
[2022-05-11] MEDS ORDERED: hydrALAZINE HCL 25 MG TAB PO STA (21:31)
[2022-05-12] MEDS: HYDROcodone/APAP 5-325MG 1 EACH TAB PO PRN ×2 (00:45→10:15)
[2022-05-12] MEDS: LOSARTAN 50 MG TAB PO SCH (07:39)
[2022-05-12] MEDS: GABAPENTIN 300 MG CAP PO SCH (07:39)
[2022-05-12] MEDS: AMOXIC-POT CLAV 875-125MG 1 EACH TAB PO SCH (07:40)
[2022-05-12] MEDS: CLOPIDOGREL 75 MG TAB PO SCH (07:40)
[2022-05-12] MEDS: APIXABAN 5 MG TAB PO SCH (07:40)
[2022-05-12] MEDS: ATORVASTATIN 40 MG TAB PO SCH (07:40)
[2022-05-12] MEDS: amLODIPine 5 MG TAB PO SCH (07:40)
[2022-05-12 11:28] LABS: Anisocytosis Slight; HCT 31.7 % (34.0-46.0); HGB 10.6 gm/dL (11.4-16.0); Hypochromasia Slight; MCH 32.3 pg (25.0-35.0); MCHC 33.4 g/dL (31.0-37.0); MCV 96.6 fL (80.0-100.0); Macrocytosis Slight; Mean Platelet Volume 7.8; Platelet Count 206 k/uL (150-450); Poikilocytosis Moderate; RBC 3.28 m/uL (3.80-5.40); RDW 18.9 % (11.5-15.5); WBC 8.3 k/uL (3.8-10.6)
[2022-05-12 11:40] VITALS: BP 144/68; PULSE 76; RESP 18; TEMP 98.1
--- NOTE | 2022-05-12 14:10 | P.DS ---
Providers Date of admission: 05/08/22 16:28 Expected date of discharge: 05/12/22 Attending physician: Jessica Calderón MD Consults: 05/08/22 00:45 Consult Physician Urgent Consulting Provider: Antoni Doll Consult Reason/Comments: Epistaxis, nasal fracture Do you want consulting provider notified?: Yes, Notify in am 05/08/22 03:17 Consult Physician Routine Consulting Provider: Pedro Colunga Consult Reason/Comments: recent stent , antiplatelets and anticoag management Do you want consulting provider notified?: Yes, Notify in am Primary care physician: ELEAZAR CHUN DO Hospital Course: Discharge Diagnosis: Acute blood loss anemia, hemoglobin stable 10.6 status post transfusion 3 units PRBCs. Refractory Epistaxis secondary to mechanical fall resulting in facial trauma, nasal bone fracture occurring 05/04/22. Continue Augmentin 875/125 mg every 12 hours until removal of packing at Dr. Doll's office later today or tomorrow. Patient instructed to rest with her head elevated. No heavy lifting or bending and not to blow her nose for 3 weeks. History of CAD with recent stent placement to left main coronary artery on 05/02/22. Continue Plavix and Eliquis as directed by cardiology. Follow up outpatient with Dr. Alas on 05/13/22 at 1:15 PM as scheduled. 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 She presented to the emergency department secondary to uncontrolled epistaxis. Patient sustained an accidental trip and fall on Thursday and underwent full evaluation and diagnosed with a nasal fracture and underwent nasal packing and discharged home where she was scheduled for surgical intervention 05/08/22 by ENT. On the evening of 05/07/22 patient reports experiencing increased pain in her nose accompanied by uncontrolled nosebleed along with blood flowing down the back of her throat. Nasal packing was completed in the emergency department resulting in successful controlling of bleeding. Patient did have a noted drop in hemoglobin from 10.3 on 05/01/22 down to 8.0. Patient was admitted under our services with consultation to ENT and cardiology. Patient underwent monitoring overnight. Repeat hemoglobin 6.8. Orders placed for transfusion 1 unit PRBCs. Posttransfusion hemoglobin stable at 8.7 with repeat of 8.4. Patient again reporting refractory epistaxis in morning hemoglobin 7.4, ENT reevaluated and ordered for 2 additional units of PRBCs. Throughout hospitalization patient received a total of 3 units PRBCs. Bleeding has now stopped and Hemoglobin has been stable 3 draws and is currently 10.6. Patient medically stable for discharge at this time. Patient to continue Augmentin 875/125 mg every 12 hours until removing of nasal packing at Dr. Doll's office later today or tomorrow. Patient also instructed to continue Plavix and Eliquis as directed by cardiology. Follow up outpatient with clinical pharmacy coordinator, Dr. Alas on 05/13/22 at 1:15 PM as scheduled. Patient was given a Plavix prescription as she reported needing. Physical exam: General: Nontoxic, no distress and appears stated age. Derm: Skin warm and dry, normal coloration for ethnicity. Head: Normocephalic and symmetric. Periorbital ecchymosis bilaterally along with bruising to nasal bridge. Packing in place to bilateral nares with dried blood, no active bleeding noted at this time. Eyes: EOMs intact, no lid lag, and anicteric sclera. Periorbital ecchymosis bilaterally along with bruising to nasal bridge Mouth: no lip lesions, mucus membranes moist Cardiovascular: regular rate and rhythm with normal S1S2, systolic murmur, positive posterior tibial pulses bilaterally, and cap refill < 2 seconds. Pacemaker left anterior chest. Lungs: Respirations even, regular, and unlabored on room air. Lungs CTA bilaterally, no rhonchi, no rales, no wheezing, and no accessory muscle usage. Abdominal: soft, nontender to palpation, no guarding, no appreciable organomegaly Ext: ROM intact. No gross muscle atrophy, no edema, no contractures Neuro: Speech clear, face symmetrical and CN II-XII grossly intact with no noted focal neuro deficits Psych: Alert and oriented to person, place, time, and situation. Appropriate and pleasant affect. A total of 36 minutes of time were spent preparing this complex discharge summary. Pt was discharged on 05/12/22 at 1:15 PM. Juan Mcgregor NP rendered care for this patient independently, reviewed the findings and plan as documented in the note above. I did not physically speak with or examine the patient on this date. Patient Condition at Discharge: Stable Plan - Discharge Summary Discharge Rx Participant: No New Discharge Prescriptions: New Amoxic-Pot Clav 875-125Mg [Augmentin 875-125] 1 each PO Q12HR 3 Days #6 tab amLODIPine [Norvasc] 5 mg PO DAILY 30 Days #30 tab Clopidogrel [Plavix] 75 mg PO DAILY 30 Days #30 tab Continue allopurinoL [Zyloprim] 300 mg PO HS Losartan [Cozaar] 50 mg PO DAILY Gabapentin 600 mg PO BID Furosemide [Lasix] 20 mg PO DAILY Apixaban [Eliquis] 5 mg PO BID Atorvastatin [Lipitor] 40 mg PO DAILY #90 tablet Magnesium 250 mg PO DAILY Fenofibrate Nanocrystallized [Fenofibrate] 145 mg PO HS Ipratropium [place]ridge [Ipratropium [place] 0.03%] 2 spray NASAL BID PRN PRN Reason: Allergy Symptoms Potassium Chloride [Klor-Con 20] 20 meq PO DAILY Discontinued Aspirin 81 mg PO DAILY Discharge Medication List Gabapentin 600 mg PO BID 03/27/15 [History] Losartan [Cozaar] 50 mg PO DAILY 03/27/15 [History] allopurinoL [Zyloprim] 300 mg PO HS 03/27/15 [History] Apixaban [Eliquis] 5 mg PO BID 03/25/22 [History] Furosemide [Lasix] 20 mg PO DAILY 03/25/22 [History] Potassium Chloride [Klor-Con 20] 20 meq PO DAILY 03/25/22 [History] Atorvastatin [Lipitor] 40 mg PO DAILY #90 tablet 05/03/22 [Rx] Fenofibrate Nanocrystallized [Fenofibrate] 145 mg PO HS 05/07/22 [History] Ipratropium [place]ridge [Ipratropium [place] 0.03%] 2 spray NASAL BID PRN 05/07/22 [History] Magnesium 250 mg PO DAILY 05/07/22 [History] Amoxic-Pot Clav 875-125Mg [Augmentin 875-125] 1 each PO Q12HR 3 Days #6 tab 05/12/22 [Rx] Clopidogrel [Plavix] 75 mg PO DAILY 30 Days #30 tab 05/12/22 [Rx] amLODIPine [Norvasc] 5 mg PO DAILY 30 Days #30 tab 05/12/22 [Rx] Follow up Appointment(s)/Referral(s): ELEAZAR CHUN DO [Primary Care Provider] - 1-2 days (patient to call for an appointment, office is currently not answering phone) Antoni Doll DO [Doctor of Osteopathic Medicine] - 05/14/22 11:30 am Mani Alas DO [STAFF PHYSICIAN] - 05/13/22 1:15 pm [facility],Jenny [NON-STAFF] - 1 Week Patient Instructions/Handouts: Amoxicillin/Clavulanate Potassium (By mouth), Amlodipine (By mouth), Clopidogrel (By mouth), Nasal Fracture (DC) Activity/Diet/Wound Care/Special Instructions: Activity: As tolerated. Take breaks as needed. Diet: Heart healthy and carb consistent diet. Avoid salts, or foods with hidden salts such as canned or boxed foods and frozen dinners. Extra salt makes your heart work harder and traps the fluid in your body for longer. Special Instructions: Take all of your medications as directed and remember to keep all of your doctor's appointments and follow-up as needed. Thank you for allowing us to participate in your care, it was truly a pleasure having you for our patient!!! You are to follow-up in Dr. Doll's office on later today or tomorrow for packing removal. Please rest with your head elevated. No heavy lifting or bending. Do not blow your nose for 3 weeks. Continue to take the Augmentin 875/125 mg tablets every 12 hours until packing is removed from your nose by ENT. Continue to take your Eliquis and Plavix as instructed by your clinical pharmacy coordinator until otherwise advised by her clinical pharmacy coordinator. You have been provided with a prescription for Plavix as you reported needing. Discharge Disposition: HOME SELF-CARE
== END 2022-05-12 18:01 | disposition home or self-care (01) | DRG 812 ==
LOC: EC 21:31 → 3SCARD 05-08 00:37 → 5NMEDONC 05-08 13:47 → OBSVTOIN 05-08 16:28
PROVIDERS: ADMIT Internal Medicine; ATTEND Internal Medicine
PROC: 2Y41X5Z Packing of Nasal Region using Packing Material (ICD-10-PCS; principal; 2022-05-08)
PROC: 30233N1 Transfusion of Nonautologous Red Blood Cells into Peripheral Vein, Percutaneous Approach (ICD-10-PCS; 2022-05-08)
DX: D62 Acute posthemorrhagic anemia (principal); D68.32 Hemorrhagic disorder due to extrinsic circulating anticoagulants; I48.19 Other persistent atrial fibrillation; R04.0 Epistaxis; T45.515A Adverse effect of anticoagulants, initial encounter; D50.9 Iron deficiency anemia, unspecified; S02.2XXG Fracture of nasal bones, subsequent encounter for fracture with delayed healing; W01.0XXD Fall on same level from slipping, tripping and stumbling without subsequent striking against object, subsequent encounter; I25.10 Atherosclerotic heart disease of native coronary artery without angina pectoris; I12.9 Hypertensive chronic kidney disease with stage 1 through stage 4 chronic kidney disease, or unspecified chronic kidney disease; N18.30 Chronic kidney disease, stage 3 unspecified; E78.5 Hyperlipidemia, unspecified; F32.A Depression, unspecified; Z79.01 Long term (current) use of anticoagulants; Z53.8 Procedure and treatment not carried out for other reasons; M10.9 Gout, unspecified; I49.5 Sick sinus syndrome; I35.0 Nonrheumatic aortic (valve) stenosis; Z28.310 Unvaccinated for COVID-19; S00.83XD Contusion of other part of head, subsequent encounter; Z92.3 Personal history of irradiation; Z79.899 Other long term (current) drug therapy; Z79.82 Long term (current) use of aspirin; Z79.02 Long term (current) use of antithrombotics/antiplatelets; Z95.1 Presence of aortocoronary bypass graft; Z95.5 Presence of coronary angioplasty implant and graft; Z95.0 Presence of cardiac pacemaker; Z97.4 Presence of external hearing-aid; Z95.2 Presence of prosthetic heart valve; Z85.3 Personal history of malignant neoplasm of breast; Z80.9 Family history of malignant neoplasm, unspecified; Z82.49 Family history of ischemic heart disease and other diseases of the circulatory system
CPT/HCPCS: 36415; 80048; 80053; 83735; 85025; 85027; 85610; 85730; 86850; 86900; 86901; 86920; 96361; 96365; 96366; 96375; 99285

== ENCOUNTER → 2022-06-05 | Outpatient (CLI) | payer MEDICARE ==
[2022-06-05 10:14] LABS: ALT 15 U/L (4-34); AST 28 U/L (14-36); African American GFR (CKD) 32 (>60 ml/min/1.73 sqM); Albumin 3.9 g/dL (3.5-5.0); Albumin/Globulin Ratio 1.7; Alkaline Phosphatase 45 U/L (38-126); Anion Gap 13 mmol/L; Blood Urea Nitrogen 35 mg/dL (7-17); Calcium 10.2 mg/dL (8.4-10.2); Carbon Dioxide 24 mmol/L (22-30); Chloride 104 mmol/L (98-107); Globulin 2.3 g/dL; Glucose 75 mg/dL (74-99); Magnesium 1.9 mg/dL (1.6-2.3); Non-African American GFR(CKD) 28 (>60 ml/min/1.73 sqM); Potassium 4.6 mmol/L (3.5-5.1); Sodium 141 mmol/L (137-145); Total Bilirubin 0.6 mg/dL (0.2-1.3); Total Protein 6.2 g/dL (6.3-8.2)
--- NOTE | 2022-06-05 10:44 | US ---
EXAMINATION TYPE: US carotid duplex BILAT DATE OF EXAM: 06/05/2022 COMPARISON: NONE CLINICAL HISTORY: R55 SYNCOPE. TECHNIQUE: Carotid duplex ultrasound examination. Indirect Doppler criteria was utilized. FINDINGS: EXAM MEASUREMENTS: RIGHT: Peak Systolic Velocity (PSV) cm/sec ----- Right CCA: 88.8 ----- Right ICA: 125.3 ----- Right ECA: 80.9 ICA/CCA ratio: 1.4 RIGHT: End Diastole cm/sec ----- Right CCA: 13.7 ----- Right ICA: 26.8 ----- Right ECA: 0.0 LEFT: Peak Systolic Velocity (PSV) cm/sec ----- Left CCA: 58.1 ----- Left ICA: 151.0 ----- Left ECA: 89.7 ICA/CCA ratio: 2.6 LEFT: End Diastole cm/sec ----- Left CCA: 17.3 ----- Left ICA: 42.6 ----- Left ECA: 0.0 VERTEBRALS (direction of flow): Right Vertebral: Antegrade Left Vertebral: Antegrade Rhythm: Normal IMPRESSION: 1. Less than 50% stenosis of the right carotid bifurcation. 2. 50-69% stenosis of the left carotid bifurcation by peak systolic velocity. Criteria for Assigning % of Stenosis / Diameter reduction (Estimation based on the indirect measurements of the internal carotid artery velocities (ICA PSV). 1. Normal (no stenosis)=ICA PSV < 125 cm/s: ratio < 2.0: ICA EDV<40 cm/s. 2. Less than 50% stenosis=ICA PSV < 125 cm/s: ratio < 2.0: ICA EDV<40 cm/s. 3. 50 to 69% stenosis=ICA PSV of 125 to 230 cm/s: ration 2.0 ? 4.0: ICA EDV 40-100 cm/s. 4. Greater than 70% stenosis to near occlusion= ICA PSV > 230 cm/s: ratio > 4.0: ICA EDV > 100 cm/s. 5. Near occlusion= ICA PSV velocities may be low or undetectable: variable ratio and ICA EDV. 6. Total occlusion=unable to detect flow.
[2022-06-05 10:56] LABS: INR 1.2 (<1.2); Prothrombin Time 12.8 sec (9.0-12.0)
[2022-06-05 14:39] LABS: Basophils # (A) 0.03 X 10*3/uL (0.00-0.10); Basophils % (A) 0.5 %; Eosinophils # (A) 0.15 X 10*3/uL (0.04-0.35); Eosinophils % (A) 2.5 %; HCT 29.9 % (37.2-46.3); HGB 8.9 g/dL (12.0-15.0); Immature Grans, Automated 0.7 %; Lymphocytes # (A) 0.81 X 10*3/uL (0.90-5.00); Lymphocytes % (A) 13.5 %; MCH 29.9 pg (27.0-32.0); MCHC 29.8 g/dL (32.0-37.0); MCV 100.3 fL (80.0-97.0); Mean Platelet Volume 10.9 fL (9.5-12.2); Monocytes # (A) 0.62 X 10*3/uL (0.20-1.00); Monocytes % (A) 10.3 %; NRBC Per 100 WBC 0 /100 WBCS (0.0-0.0); Neutrophils # (A) 4.35 X 10*3/uL (1.80-7.70); Neutrophils % (A) 72.5 %; Platelet Count 189 X 10*3/uL (140-440); RBC 2.98 X 10*6/uL (4.10-5.20); RDW 16.9 % (11.5-14.5)
[2022-06-05 15:27] LABS: Chol/HDL Ratio 4.59 Ratio
[2022-06-05 15:47] LABS: Hepatitis A Antibody IgM Nonreactive (Nonreactive); Hepatitis B Core IgM Nonreactive (Nonreactive); Hepatitis B Surface Antigen Nonreactive (Nonreactive); Hepatitis C IgG Antibody Nonreactive (Nonreactive)
[2022-06-05 17:49] LABS: Appearance,Urine Clear (Clear); Bilirubin,Urine Negative (Negative); Blood,Urine Negative (Negative); Color,Urine Yellow (Yellow); Ketones,Urine Negative (Negative); Nitrite,Urine Negative (Negative); PH, Urine 5.5 (5.0-8.0); Specific Gravity,Urine 1.012 (1.001-1.030); Urobilinogen,Urine 0.2 (0.2,1.0)
[2022-06-05 17:56] LABS: Bacteria,Urine None Seen /HPF (None Seen)
== END | disposition home or self-care (01) ==
LOC: LABWHC1 08:56
PROVIDERS: ATTEND Thoracic Surgery (Cardiothoracic Vascular Surgery)
DX: I35.1 Nonrheumatic aortic (valve) insufficiency (principal)
CPT/HCPCS: 36415; 80053; 80061; 80074; 81001; 83036; 83735; 83880; 84443; 85025; 85610; 85730; 87086; 93880; 94150

== ENCOUNTER → 2022-06-12 | Outpatient (CLI) | payer MEDICARE ==
[2022-06-12 18:19] LABS: African American GFR (CKD) 35.7 (60.0-200.0); BUN/Creat Ratio 12.61 Ratio (12.00-20.00); Blood Urea Nitrogen 19.8 mg/dL (9.0-27.0); Calcium 10.2 mg/dL (8.7-10.3); Carbon Dioxide 24.5 mmol/L (20.0-27.5); Non-African American GFR(CKD) 30.8 (60.0-200.0); Potassium 4.9 mmol/L (3.5-5.5)
== END | disposition home or self-care (01) ==
LOC: LABWHC1 11:44
PROVIDERS: ATTEND Thoracic Surgery (Cardiothoracic Vascular Surgery)
DX: I35.0 Nonrheumatic aortic (valve) stenosis (principal); N18.9 Chronic kidney disease, unspecified
CPT/HCPCS: 36415; 80048

== ENCOUNTER → 2022-07-08 | Outpatient (CLI) | payer MEDICARE ==
[~2022-07-08] MED LIST changes: -ALPRAZolam 0.25 MG TAB PO PRN; -ALPRAZolam 0.5 MG TAB PO PRN; -ASPIRIN 325 MG TAB PO ONE; -ATORVASTATIN 80 MG TAB PO ONE; -HEPARIN SODIUM,PORCINE 10,000 UNIT in SODIUM CHLORIDE 0.9% 1,000 ML IRRIGATION PRN; -HEPARIN SODIUM,PORCINE 2,500 UNIT in SODIUM CHLORIDE 0.9% 250 ML IRRIGATION PRN; -NITROGLYCERIN SL TABS 0.4 MG TAB SUBLINGUAL PRN; +SODIUM CHLORIDE 0.9% 1,000 ML in EMPTY BAG 1 BAG IV ONE
--- NOTE | 2022-07-08 11:34 | CT ---
EXAMINATION TYPE: CT TAVR Planning DATE OF EXAM: 07/08/2022 HISTORY: TAVR planning CT DLP: 1642.1 mGycm Automated Exposure Control for Dose Reduction was Utilized. CONTRAST: CT scan of the chest, abdomen and pelvis is performed with IV Contrast, patient injected with 125 mL of Isovue 370. COMPARISON: None. TECHNIQUE: Helical imaging obtained through the chest, abdomen and pelvis during arterial phase amber devonte administration of radiographic contrast intravenously. FINDINGS: See report from [employer] regarding preprocedural planning CHEST: Lower Neck and Thyroid: Moderate calcified plaque left carotid bulb without significant stenosis Lungs: Anterior fibrotic change and/or atelectasis in the right lung mid to lower aspect Central Airway: No significant findings Pleura: No significant findings Pulmonary Arteries: Prominent pulmonary arteries raise concern for underlying pulmonary hypertension Heart and Pericardium: Cardiomegaly with dual lead pacemaker. Post-CABG changes with mediastinal clip s and sternal wires along with PORTILLO harvesting. Lymph Nodes: No significant findings Mediastinum & Esophagus: No significant findings Other: Dystrophic calcifications likely postsurgical change upper aspect right breast ABDOMEN/PELVIS: Please note arterial phase of the imaging limits detailed evaluation of the solid abdominal organs. Liver: No significant findings Spleen: No significant findings Kidneys: There is 11 mm calculus lower pole of the left kidney axial image 81 Adrenal Glands: No significant findings Pancreas: No significant findings Gallbladder: No significant findings Bowel and Mesentery: No significant findings Lymph Nodes: No significant findings Urinary Bladder: No significant findings Pelvic Organs: No significant findings Other: Posterior interpedicular rods and screws along with artificial disc material at L2-L5 levels. Endplate sclerosis with vacuum disc phenomenon L5-S1 level. Other Lines/Tubes/Devices/Hardware: None IMPRESSION: Incidental findings as noted above
== END | disposition home or self-care (01) ==
LOC: RADCTMAIN 06:54
PROVIDERS: ATTEND Thoracic Surgery (Cardiothoracic Vascular Surgery)
DX: Z48.812 Encounter for surgical aftercare following surgery on the circulatory system (principal); I35.1 Nonrheumatic aortic (valve) insufficiency; N20.0 Calculus of kidney
CPT/HCPCS: 71275; 74174; Q9967

== ENCOUNTER 2022-07-23 08:00 | Inpatient (IN) | payer MEDICARE ==
[2022-08-06] MEDS ORDERED: ELECTROLYTE-A SOLUTION 1,000 ML with POTASSIUM CHLORIDE 100 MEQ, MAGNESIUM SULFATE 16 M... IV PRN ×5 (06:00)
[2022-08-06] MEDS ORDERED: CLOPIDOGREL 75 MG TAB PO ONE (06:00)
[2022-08-06] MEDS ORDERED: CLEVIDIPINE BUTYRATE 25 MG in EMPTY BAG 1 BAG IV PRN (06:00)
[2022-08-06] MEDS ORDERED: SODIUM CHLORIDE 0.9% 500 ML 500 ML INTRAARTER PRN (06:00)
[2022-08-06] MEDS ORDERED: ASPIRIN 325 MG TAB PO ONE (06:00)
[2022-08-06] MEDS ORDERED: LACTATED RINGERS 1,000 ML IV SCH ×2 (06:00→09:51)
[2022-08-06] MEDS ORDERED: METOPROLOL TARTRATE 25 MG TAB PO ONE (06:00)
[2022-08-06] MEDS ORDERED: TRANEXAMIC ACID 2,000 MG in SODIUM CHLORIDE 0.9% 80 ML IV PRN (06:00)
[2022-08-06] MEDS ORDERED: INSULIN REGULAR 100 UNIT in SODIUM CHLORIDE 0.9% 100 ML IV PRN (06:00)
[2022-08-06] MEDS ORDERED: PROTAMINE SULFATE 250 MG in EMPTY BAG 1 BAG IV PRN (06:00)
[2022-08-06] MEDS ORDERED: ATORVASTATIN 10 MG TAB PO ONE (06:00)
[2022-08-06] MEDS ORDERED: NITROGLYCERIN-D5W PMX 25 MG/250 ML BTL IV PRN (06:00)
[2022-08-06 06:26] LABS: Glucose,Whole Blood 94 mg/dL (70-110)
[2022-08-06] MEDS ORDERED: SODIUM CHLORIDE 0.9% 1,000 ML IV ONE (06:29)
[2022-08-06] MEDS ORDERED: PHENYLEPHRINE-0.9% NACL SYG 1,000 MCG/10 ML SYRINGE ONE (07:50)
[2022-08-06] MEDS ORDERED: ROCURONIUM 10 MG/ML (5 ML VIAL) IV ONE (07:50)
[2022-08-06] MEDS ORDERED: SUCCINYLCHOLINE CHLORIDE 200 MG/10 ML VIAL IV ONE (07:50)
[2022-08-06] MEDS ORDERED: NEOSTIGMINE 1 MG/ML 10 ML VIAL ONE (07:50)
[2022-08-06] MEDS ORDERED: ceFAZolin 1,000 MG VIAL ONE (07:50)
[2022-08-06] MEDS ORDERED: SODIUM CHLORIDE 0.9% 100 ML BAG ONE (07:50)
[2022-08-06] MEDS ORDERED: GLYCOPYRROLATE 0.2 MG/ML 2 ML VIAL ONE (07:50)
[2022-08-06] MEDS ORDERED: LIDOCAINE 2% INJ 20 MG/ML (2 ML VIAL) ONE (07:50)
[2022-08-06] MEDS ORDERED: fentaNYL (PF) 50 MCG/ML 2 ML AMP ONE (07:50)
[2022-08-06] MEDS ORDERED: HEPARIN SODIUM,PORCINE 5,000 UNIT/ML 1 ML VIAL ONE (07:50)
[2022-08-06] MEDS ORDERED: PROPOFOL 10 MG/ML 20 ML VIAL IV ONE (07:50)
[2022-08-06] MEDS ORDERED: PROTAMINE SULFATE 10 MG/ML 5 ML VIAL IV ONE (07:50)
[2022-08-06] MEDS ORDERED: IOPAMIDOL-370 50ML BTL INJ ONE (09:11)
[2022-08-06] MEDS ORDERED: IOPAMIDOL-250 100ML BTL INTRAARTER ONE (09:11)
--- NOTE | 2022-08-06 09:24 | P.OP ---
Description of Procedure: Transcatheter Aoritc Valve Replacement Operative report PROCEDURE PERFORMED: 1. Percutaneous Aortic Valve Implantation using a 23 mm Core-Valve Evolut-Pro Plus. 2. Transesophageal echocardiography (performed by anesthesia) 3. Ultrasound guided access and repair of right femoral artery access site by Perclose closure device. 4. Placement of temporary pacemaker wire. 5. Aortic root angiography INDICATIONS: 1. 82 year-old with a history of severe symptomatic aortic valve stenosis. 2. Previous surgical aortic valve replacement PERFORMING PHYSICIANS: 1. Mani Alas DO Interventional Cardiology 2. Pedro Colunga MD Interventional Cardiology. 3. Munir Connolly MD, Cardiothoracic Surgeon. SEDATION: General anesthesia provided by anesthesia, see separate note APPROACH: Right femoral artery via percutaneous approach PROCEDURE DESCRIPTION: The patient was discussed at valve clinic with multidisciplinary approach with cardiothoracic surgeon as well as hematology oncology consultant and thought better treated with TAVR. Risks, benefits, and alternatives of the procedure had been explained to the patient who understood the risks and agreed to proceed. After consents were obtained, patient was brought to the transcatheter aortic valve implantation room in the cardiac poultry farm laborer and general anesthesia was provided by the anesthesiologist (see separate report). Next the left femoral artery was accessed using a modified Seldinger technique, ultrasound guidance and micropuncture technique. A 6 Lithuanian Rabi sheath was placed in the left femoral artery. Next, a 6-Lithuanian pigtail catheter was advanced into the aorta and positioned in the aortic root, aortic root angiography was performed to determine optimal deployment angle. Left femoral venous access was obtained and a 6-Lithuanian sheath was placed. A temporary venous pacemaker was advanced into the right ventricle and pacing thresholds were checked and were deemed adequate. The right femoral artery was accessed using modified Seldinger technique, micropuncture technique and under direct ultrasound guidance. Femoral angiogram was done showing access in the common femoral artery and a 6Fr sheath was placed. Next preclose technique was performed using 2 Perclose. Next a 0.035 Lunderquist wire was placed in the Aorta via a pigtail catheter. Over that the arteriotomy was serially dilated and a 14 Fr [place] sheath was placed. Next a 6F- AL1 catheter was advanced over a wire to the aortic root. A straight wire was advanced through the catheter and used to cross the severely stenotic valve. The AL1 was then exchanged for a 6Fr pigtail catheter and pressure measurements were obtained. The 0.035 Lunderquist wire was then positioned in the apex. Next a 23 mm Corevalve Evolut-Pro Plus was advanced. The valve was then positioned across the previous surgical aortic valve and confirmed with aortic root angiography. The valve was then deployed in proper position using slow deployment and with rapid pacing in conjuncture with aortic root angiography and SHEMAR. The delivery system was withdrawn back into the arch and an aortic root injection in conjunction with SHEMAR demonstrated a satisfactory result. There was trace para valvular leak. There was no evidence of any other significant abnormalities. The preclose Perclose was then deployed in the right femoral artery and hemostasis was achieved. The pigtail was then advanced to the level of the iliac bifurcation via the left femoral access. Femoral angiogram was performed that showed no contrast leak. The left femoral angiogram demonstrated an arteriotomy in the common femoral artery and this was repaired using a 6F angioseal device with complete hemostasis. The temporary venous pacemaker was pulled and the sheath was removed and manual pressure was held with hemostasis achieved. The patient was then transported to the ICU in hemodynamically stable condition, requiring no pressor support. COMPLICATIONS: None CONCLUSION: 1. Implantaion of 23mm Core-Valve Evolut-Pro Plus transcatheter aortic valve in valve via right femoral approach under SHEMAR and fluoro guidance with trace simi- valvular aortic regurgitation. 2. Placement of temporary pacemaker wire 3. Aortic Root Aortogram. RECOMMENDATIONS: The patient will be monitored in the ICU for hemodynamic and electrical stability.
--- NOTE | 2022-08-06 09:39 | P.OP ---
Date of Procedure: 08/06/22 Preoperative Diagnosis: Prosthetic aortic valvular stenosis Postoperative Diagnosis: Same Procedure(s) Performed: Transcatheter aortic valve implantation via right percutaneous transfemoral approach with 23 Medtronic Evolut valve Implants: 20s 3 mm Medtronic Evolut transcatheter aortic valve Anesthesia: GABRIEL Surgeon: Munir Quevedo Phlebotomy Services Technician #1: Mani Alas Phlebotomy Services Technician #2: Pedro Colunga Estimated Blood Loss (ml): 10 IV fluids (ml): 1,000 Pathology: none sent Condition: stable Disposition: ICU Indications for Procedure: 82-year-old female with previous coronary artery bypass grafting and aortic valve replacement by Dr. Hatfield. She presents with dyspnea. She has chronic renal insufficiency. She is found to have significant prosthetic aortic valve stenosis. Bypass grafts are open. She was seen in the high-risk valve clinic and felt to be most appropriate for valve and valve transcatheter aortic valve implantation. Elective surgery was scheduled. Operative Findings: Femoral access was good. The valve was crossed without terrible difficulty. We were able to seat the new valve perfectly within the frame of the old valve. Was no significant aortic insufficiency. Hemodynamically the patient tolerated the procedure well. Successful femoral closure was obtained. Description of Procedure: Patient was brought to the cardiac catheterization laboratory and placed supine on the table. Gen. anesthesia was induced. Chest and bilateral groins were sterilely prepped and draped in standard fashion. Bilateral femoral access was obtained. On the left long 7-Mozambican sheath was placed in the left femoral artery and advanced into the descending thoracic aorta, and a 6-[place]ozambican sheath was placed in the left femoral vein. Through this a pacing catheter was advanced into the right ventricle where excellent thresholds were obtained. Pigtail was placed through the long left 7-[place]ozambican sheath and advanced into the right coronary sinus of Valsalva. On the right 7-Mozambican sheath was placed in the right femoral artery. 2 Perclose devices were then deployed and an 8-[place]ozambican sheath was placed. Patient was systemically heparinized. The 8-[place]ozambican sheath was changed over a stiff wire to a 14-[place]ozambican sheath. The valve was crossed with a 14-[place]ozambican sheath with a straight wire and exchanged for a pigtail which was positioned in the apex of the ventricle. Transcatheter gradients were obtained. Lunderquist wire was positioned in the apex of the ventricle. 23 mm Medtronic Evolut transcatheter valve was loaded on the back table and brought up onto the field. After fluoroscopy check, 14-Mozambican sheath was exchanged for the liver system of the transcatheter valve which was advanced easily through the iliofe moral system into the abdominal and thoracic aorta and around the aortic arch. The valve was crossed and the device was appropriately positioned under fluoroscopy. The device was deployed under rapid ventricular pacing making every attempt to line the very bottom of the cage with the very bottom of the prosthetic implant the valve. This proceeded without event. The valve was released. Excellent placement levels were noted. SHEMAR did not demonstrate significant gradient and showed trivial amount of aortic insufficiency. Root angiogram was performed and showed no evidence of aortic insufficiency. Heparin was reversed with protamine. Femoral hemostasis was obtained by cardiology. Patient was extubated and transferred to the ICU in stable condition
[2022-08-06] MEDS ORDERED: IPRATROPIUM-ALBUTEROL 3 ML NEB INHALATION PRN (09:51)
[2022-08-06] MEDS ORDERED: Phosphorus Replacement Protoco 1 EACH MISC MISCELLANE PRN (09:51)
[2022-08-06] MEDS ORDERED: Magnesium Replacement Protocol 1 EACH MISC MISCELLANE PRN ×2 (09:51→11:04)
[2022-08-06] MEDS ORDERED: CALCIUM GLUCONATE IN NACL 2 GM in SALINE 1 100ML.BAG IVPB PRN (09:51)
[2022-08-06] MEDS ORDERED: LORATADINE 10 MG TAB PO PRN (09:51)
[2022-08-06] MEDS ORDERED: traMADol 50 MG TAB PO PRN (09:51)
[2022-08-06] MEDS ORDERED: ACETAMINOPHEN TAB 500 MG TAB PO PRN (09:51)
[2022-08-06] MEDS ORDERED: ALPRAZolam 0.5 MG TAB PO PRN (09:51)
[2022-08-06] MEDS ORDERED: IPRATROPIUM BROMIDE 0.06% NASAL SPRAY (15 ML) NASAL PRN (09:51)
[2022-08-06] MEDS ORDERED: ONDANSETRON 4 MG/2 ML VIAL IVP PRN (09:51)
[2022-08-06] MEDS ORDERED: Potassium Replacement Protocol 1 EACH MISC MISCELLANE PRN (09:51)
[2022-08-06 09:55] LABS: Glucose,Whole Blood 101 mg/dL (70-110)
--- NOTE | 2022-08-06 10:00 | P.ANPRN ---
Procedure Note - Anesthesia - Invasive Line Left Arterial Line Time Out Performed: Yes Date of Procedure: 08/06/22 Time of Procedure: 07:15 Location of Patient: PreOp Preparation: Sterile Prep, Sterile Dressing Arterial Line Location: Radial Ultrasound Used: Yes Purpose - Visualization and Identification of Vasculature: Yes Needle Guage: 20 Image Stored and Saved: Yes Narrative: Left radial arterial line placed using Seldinger technique under u/s guidance.
--- NOTE | 2022-08-06 10:05 | P.ANPRN ---
Procedure Note - Anesthesia - SHEMAR Intraop Pre Bypass SHEMAR Intraop - Anesthesia Indication: Aortic stenosis Date of Procedure: 08/06/22 Pre-operative Diagnosis: of bioprosthetic aortic valve Post-operative Diagnosis: Same Surgeon: Munir Quevedo Left Ventricle: EF45 Regional Wall Motion Abnormalities: None Left Ventricle Hypertrophy: No Right Ventricle: dilated RV R. Ventricle Function: Normal Aortic Valve: Bioprosthetic valve. Immobile NCC. Trace AI. Peak 50 mmHg, Mean 32 mmHg. RONNELL 0.4 cm2 Anatomy: Trileaflet Aortic Stenosis: Severe Aortic Regurgitation: Trace Mitral Stenosis: None Mitral Regurgitation: Mild Tricuspid Stenosis: None Tricuspid Regurgitation: Mild Pulmonic Stenosis: None Pulmonic Regurgitation: None R. Atrial Dilation: No R. Atrial PFO: No L. Atrial Dilation: No Aorta: calcified Aortic Dissection: No Aortic Calcification: Moderate Plural Effusion: None - SHEMAR Intraop Post Bypass SHEMAR Intraop Post Bypass Procedure Performed: TAVR Left Ventricle: EF 50% Ejection Fraction: Normal Regional Wall Motion Abnormalities: None Aortic Valve: Peak 15 mmHg, Mean 8 mmHg. Mild perivalvular leak at LCC Mitral Valve: Unchanged Tricuspid: Unchanged Pulmonic: Unchanged Aortic Dissection: No
[2022-08-06 10:14] VITALS: PULSE 60
[2022-08-06 10:15] LABS: Anisocytosis Slight; Basophils % (A) 0 %; Eosinophils # (A) 0.1 k/uL (0-0.7); Eosinophils % (A) 2 %; HCT 28.7 % (34.0-46.0); HGB 8.8 gm/dL (11.4-16.0); Hypochromasia Marked; Lymphocytes # (A) 1.4 k/uL (1.0-4.8); Lymphocytes % (A) 17 %; MCH 28.6 pg (25.0-35.0); MCHC 30.6 g/dL (31.0-37.0); MCV 93.3 fL (80.0-100.0); Mean Platelet Volume 10.6; Monocytes # (A) 0.4 k/uL (0-1.0); Monocytes % (A) 5 %; Neutrophils # (A) 5.9 k/uL (1.3-7.7); Neutrophils % (A) 74 %; Platelet Count 174 k/uL (150-450); RBC 3.08 m/uL (3.80-5.40); RDW 17.3 % (11.5-15.5); WBC 7.9 k/uL (3.8-10.6)
[2022-08-06 10:27] LABS: Albumin 3.5 g/dL (3.5-5.0); Calcium 8.8 mg/dL (8.4-10.2); Magnesium 1.7 mg/dL (1.6-2.3); Potassium 4.1 mmol/L (3.5-5.1); Total Bilirubin 0.4 mg/dL (0.2-1.3); Total Protein 5.6 g/dL (6.3-8.2)
[2022-08-06 10:34] LABS: INR 1.2 (<1.2); Prothrombin Time 12.9 sec (9.0-12.0)
[2022-08-06] MEDS: CLEVIDIPINE BUTYRATE 25 MG in EMPTY BAG 1 BAG IV SCH ×2 (10:39→20:17)
--- NOTE | 2022-08-06 10:42 | P.CNPUL ---
History of Present Illness Consult date: 08/06/22 Chief complaint: TAVR History of present illness: This is a 82-year-old female patient with known history of coronary artery disease and previous bypass surgery and the patient has undergone also previous aortic valve replacement. The patient was having exertional dyspnea and she also has developed a prosthetic aortic valve stenosis. Based on that, the patient underwent a transcatheter aortic valve implantation, whatever procedure. Estimated blood loss was 10 mL. The patient's underlying sick sinus syndromeand the patient is currently paced at rate of 60. She is hemodynamically stable. In fact she is hypertensive and the most recent BP is 171/59. She is awake and alert. No neurological deficits. She is on oxygen and she is currently at 2 L of oxygen nasal cannula with a pulse ox of 98%. She is on no pressors. Cleviprex Will be initiated for blood pressure control. Review of Systems All systems: negative (Exertional dyspnea on outpatient basis related to prosthetic aortic valve stenosis. She is currently under the effect of anesthetics and she is currently in the intensive care unit for now.) Past Medical History Past Medical History: Coronary Artery Disease (CAD), GERD/Reflux, Hyperlipidemia, Hypertension Additional Past Medical History / Comment(s): Aortic Valve Stenosis,uses a cane or walker at times, Fall 05/04/22 with significant facial trauma-received 3 units pRBCs due to nose bleed. Bilateral hearing aid use. DIARRHEA. HX RIGHT BREAST CANCER STAGE 1, HAD RADIATION JUL-SEP 2013. History of Any Multi-Drug Resistant Organisms: None Reported Past Surgical History: Back Surgery, Bowel Resection, Coronary Bypass/CABG, Heart Catheterization With Stent, Hysterectomy, Orthopedic Surgery, Pacemaker Additional Past Surgical History / Comment(s): CABG 3 VESSEL WITH AORTIC VALVE REPLACEMENT, heart catheterization X2 with one stent each time, RIGHT BREAST LUMPECTOMY, pacemaker, pins and screws in lumbar spine, bowel resection due to precancerous polyps, SHEMAR. Past Anesthesia/Blood Transfusion Reactions: No Reported Reaction Date of Last Stent Placement:: 05/02/22 Type of Cardiac Device: Unknown Device Placement Date:: unknown Smoking Status: Never smoker - Past Family History Mother Family Medical History: Cancer Father Additional Family Medical History / Comment(s): HEART PROBLEMS. Medications and Allergies Home Medications Medication Instructions Recorded Confirmed Type Gabapentin 600 mg PO BID 03/27/15 08/06/22 History allopurinoL [Zyloprim] 300 mg PO DAILY 03/27/15 08/06/22 History Apixaban [Eliquis] 5 mg PO BID 03/25/22 08/06/22 History Furosemide [Lasix] 20 mg PO DAILY 03/25/22 08/06/22 History Potassium Chloride [Klor-Con 20] 20 meq PO DAILY 03/25/22 08/06/22 History Fenofibrate Nanocrystallized 145 mg PO HS 05/07/22 08/06/22 History [Fenofibrate] ALPRAZolam [Xanax] 0.5 mg PO BID PRN 08/04/22 08/06/22 History Ascorbic Acid [Vitamin C] 500 mg PO DAILY 08/04/22 08/06/22 History Aspirin 81 mg PO DAILY 08/04/22 08/06/22 History Cholecalciferol [Vitamin D3 (25 25 mcg PO DAILY 08/04/22 08/06/22 History Mcg = 1000 Iu)] Levocetirizine Dihydrochloride 5 mg PO DAILY PRN 08/04/22 08/06/22 History [Xyzal] Sertraline [Zoloft] 50 mg PO DAILY 08/04/22 08/06/22 History Atorvastatin [Lipitor] 40 mg PO HS 08/06/22 08/06/22 History Clopidogrel [Plavix] 75 mg PO DAILY 08/06/22 08/06/22 History Ipratropium [place] [Ipratropium 1 spray NASAL DAILY PRN 08/06/22 08/06/22 History [place] 0.03%] Metoprolol Succinate (ER) [Toprol 25 mg PO DAILY 08/06/22 08/06/22 History Xl] traMADol HCl [Ultram] 50 mg PO Q8HR PRN 08/06/22 08/06/22 History Allergies Allergy/AdvReac Type Severity Reaction Status Date / Time No Known Allergies Allergy Verified 08/06/22 06:07 Physical Exam Vitals: Vital Signs Temp Pulse Pulse Resp BP BP BP 08/06/22 10:00 60 16 144/66 08/06/22 09:51 97.7 F 10 L 144/66 08/06/22 09:50 97.7 F 60 15 144/66 08/06/22 06:27 99.2 F 59 L 18 147/64 143/65 Pulse Ox 08/06/22 10:00 100 08/06/22 09:51 99 08/06/22 09:50 85 L 08/06/22 06:27 98 Intake and Output 08/05/22 08/06/22 08/06/22 22:59 06:59 14:59 Intake Total 300 50 Balance 300 50 Intake: IV 300 Intake, IV Titration 50 Amount Lactated Ringers 1,000 ml 50 @ 50 mls/hr IV .Q20H [facility] Rx#:[id number] Other: # Voids 1 Weight 57.2 kg ABP, PAP, CO, CI - Last 8 Hours Arterial Blood Pressure 153/55 Arterial Blood Pressure 153/55 The patient appeared well nourished and normally developed. Patient is currently on 2 L of O2 nasal cannula the arterial sheath has been taken out and the patient has no evidence of any bleed or hematoma formation at the surgical wound site and the patient has Angio-Seal. She has adequate pulses in lower ec zematous bilaterally. Vital signs as documented. Head exam is unremarkable. No scleral icterus or corneal arcus noted. Neck is without jugular venous distension, thyromegaly, or carotid bruits. Carotid upstrokes are brisk bilaterally. Lungs are clear to auscultation and percussion. Cardiac exam rev eals the PMI to be normally sized and situated. Rhythm is regular. First and second heart sounds normal. No murmurs, rubs or gallops. Abdominal exam reveals normal bowel sounds, no masses, no organomegaly and no aortic enlargement. Extremities are nonedematous and both femoral and pedal pulses are n ormal.Examination of the skin revealed no evidence of significant rashes, suspicious appearing nevi or other concerning lesions.Neurologically, the patient is awake and alert and the patient does not have any focal neurological deficit. Cranial nerves are essentially intact. Results - Laboratory Findings CBC and BMP: 08/06/22 10:10 08/06/22 10:10 Abnormal lab findings: Abnormal Labs 08/06/22 08/06/22 10:10 10:10 RBC 3.08 L Hgb 8.8 L Hct 28.7 L MCHC 30.6 L RDW 17.3 H Chloride 109 H Carbon Dioxide 19 L BUN 27 H Creatinine 1.33 H Total Protein 5.6 L Assessment and Plan Plan: Transcatheter aortic valve replacement/tavern and the patient is also given #0. Surgery was done for exertional dyspnea and severe prosthetic aortic valve stenosis Shortness of breath secondary to above Coronary artery disease with previous bypass surgery. The patient also has undergone multiple stenting. Preop cardiac catheterization was done on 05/02/2022 and showed patent PORTILLO to LAD and patent SVG to PDA. A drug-eluting stent was placed in the left main coronary artery. Carotid stenosis in order of 50-70% involving the left internal carotid artery. History of sick sinus syndrome, and the patient has a pacemaker in place History of atrial fibrillation Hypertension, currently hypertensive and the blood pressure needs to be tightly controlled Hyperlipidemia Gout Impaired hearing History of breast cancer with previous lumpectomy and radiation therapy History of HIV fibrillation Chronic kidney disease, stage III with a creatinine of 1.3 and a GFR of 38 Anemia of chronic disease Plan Provide incentive spirometer Obtain a chest x-ray The patient's cardiac rhythm is currently paced and the patient has a pacemaker in place We'll start Cleviprex for blood pressure control The patient on aspirin and Plavix and consider restarting L Quijano next 24-48 hours Continue Toprol-XL 25 mg by mouth daily Outpatient medications and resumed with exception of Eliquis Monitor renal function Will follow
--- NOTE | 2022-08-06 10:59 | XR ---
EXAMINATION TYPE: XR chest 1V portable DATE OF EXAM: 08/06/2022 COMPARISON: Chest x-ray 05/03/2022 HISTORY: Postop cardiac surgery TECHNIQUE: Single frontal view of the chest is obtained. FINDINGS: There is some improvement in the interstitium as compared to previous exam. No evident pne umothorax or pleural effusion. Minimal patchy density persists, prominence interstitium is again note d. The aorta is dense. The cardiac silhouette size is stable, enlarged. Patient is post median sterno caprice and TAVR procedure. There is a generator in the left pectoral region, leads are present in the r ight atrium and ventricle. The osseous structures are intact. IMPRESSION: I suspect some improvement in volume status, interstitial edema
[2022-08-06] MEDS: MAGNESIUM SULFATE-D5W PMX 1 GM in DEXTROSE/WATER 1 100ML.BAG IVPB SCH ×2 (12:05→13:47)
[2022-08-06] MEDS: LOSARTAN 25 MG TAB PO SCH (13:47)
[2022-08-06] MEDS: GABAPENTIN 300 MG CAP PO SCH (20:16)
[2022-08-06] MEDS ORDERED: FENOFIBRATE 160 MG TAB PO SCH (21:00)
[2022-08-06] MEDS: HEPARIN SODIUM,PORCINE/PF 5,000 UNIT/0.5 ML SYRINGE SQ SCH (23:49)
[2022-08-07] MEDS: CLEVIDIPINE BUTYRATE 25 MG in EMPTY BAG 1 BAG IV SCH (04:19)
[2022-08-07 04:44] LABS: Anisocytosis Slight; Basophils % (A) 0 %; Eosinophils # (A) 0.1 k/uL (0-0.7); Eosinophils % (A) 2 %; HCT 27.7 % (34.0-46.0); HGB 8.9 gm/dL (11.4-16.0); Hypochromasia Marked; Lymphocytes # (A) 0.8 k/uL (1.0-4.8); Lymphocytes % (A) 10 %; MCH 29.8 pg (25.0-35.0); MCHC 32.2 g/dL (31.0-37.0); MCV 92.5 fL (80.0-100.0); Mean Platelet Volume 9.4; Monocytes # (A) 0.3 k/uL (0-1.0); Monocytes % (A) 4 %; Neutrophils # (A) 6.6 k/uL (1.3-7.7); Neutrophils % (A) 83 %; Platelet Count 171 k/uL (150-450); RDW 17.4 % (11.5-15.5); WBC 7.9 k/uL (3.8-10.6)
[2022-08-07 05:18] LABS: Ionized Calcium 5.4 mg/dL (4.5-5.3)
[2022-08-07 05:28] LABS: Albumin 3.6 g/dL (3.5-5.0); Calcium 9.3 mg/dL (8.4-10.2); Magnesium 2.4 mg/dL (1.6-2.3); Potassium 4.1 mmol/L (3.5-5.1); Total Bilirubin 0.4 mg/dL (0.2-1.3); Total Protein 5.8 g/dL (6.3-8.2)
[2022-08-07] MEDS ORDERED: PANTOPRAZOLE 40 MG TABLET PO SCH (07:30)
[2022-08-07] MEDS: HEPARIN SODIUM,PORCINE/PF 5,000 UNIT/0.5 ML SYRINGE SQ SCH (07:50)
[2022-08-07] MEDS: GABAPENTIN 300 MG CAP PO SCH (07:54)
[2022-08-07] MEDS: LOSARTAN 25 MG TAB PO SCH (07:55)
--- NOTE | 2022-08-07 08:48 | P.PN ---
Subjective Progress Note Date: 08/07/22 This is a 82-year-old female patient with known history of coronary artery disease and previous bypass surgery and the patient has undergone also previous aortic valve replacement. The patient was having exertional dyspnea and she also has developed a prosthetic aortic valve stenosis. Based on that, the patient underwent a transcatheter aortic valve implantation, whatever procedure. Estimated blood loss was 10 mL. The patient's underlying sick sinus syndromeand the patient is currently paced at rate of 60. She is hemodynamically stable. In fact she is hypertensive and the most recent BP is 171/59. She is awake and alert. No neurological deficits. She is on oxygen and she is currently at 2 L of oxygen nasal cannula with a pulse ox of 98%. She is on no pressors. Cleviprex Will be initiated for blood pressure control. 08/07/2022, I'm seeing the patient for a follow-up. The patient is doing extremely well. She is awake and alert and she is on room air oxygen. The patient is currently off Cleviprex and losartan was added for better blood pressure control. Chest x-ray from yesterday was not significant. The patient has no complaints. No focal neurological deficits. She is on that oxygen and is using the incentive spirometer. She is going to have a echocardiogram today to evaluate the valvular function. If all is good, the patient will likely get discharged home today. Anticoagulation effects will be restarted. Objective - Vital Signs Vital signs: Vital Signs Temp 98 F 08/07/22 04:00 Pulse 60 08/07/22 07:00 Resp 16 08/07/22 07:00 BP 127/60 08/06/22 22:00 Pulse Ox 93 L 08/07/22 07:33 FiO2 Intake & Output 08/06/22 08/07/22 08/07/22 18:59 06:59 18:59 Intake Total 639.2 299.067 542.367 Output Total 300 300 Balance 339.2 -0.933 542.367 Weight 60 kg 58.6 kg Intake: IV 220 40 Lactated Ringers 1,000 ml 220 40 @ 50 mls/hr IV .Q20H [facility] Rx#:[id number] Intake, IV Titration 639.2 79.067 22.367 Amount Clevidipine Butyrate 25 19.2 59.067 22.367 mg In Empty Bag 1 bag @ 1 MG/HR 2 mls/hr IV .Q24H [facility] Rx#:[id number] Lactated Ringers 1,000 ml 420 20 @ 50 mls/hr IV .Q20H [facility] Rx#:[id number] Magnesium Sulfate-D5w Pmx 200 1 gm In Dextrose/Water 1 100ml.bag @ 100 mls/hr IVPB Q1H [facility] Rx#: [id number] Oral 480 Output: Urine 300 300 Other: Voiding Method Bedside Commode Bedside Commode # Voids 1 0 ABP, PAP, CO, CI - Last Documented Arterial Blood Pressure 121/51 - Exam The patient appeared well nourished and normally developed. Patient is currently on RA O2 nasal cannula the arterial sheath has been taken out and the patient has no evidence of any bleed or hematoma formation at the surgical wound site and the patient has Angio-Seal. She has adequate pulses in lower eczematous bilaterally. Vital signs as documented. Head exam is unremarkable. No scleral icterus or corneal arcus noted. Neck is without jugular venous dis tension, thyromegaly, or carotid bruits. Carotid upstrokes are brisk bilaterally. Lungs are clear to auscultation and percussion. Cardiac exam reveals the PMI to be normally sized and situated. Rhythm is regular. First and second heart sounds normal. No murmurs, rubs or gallops. Abdominal exam reveals normal bowel sounds, no masses, no organomegaly and no aortic enlargement. Extremities are nonedematous and both femoral and pedal pulses are normal.Examination of the skin revealed no evidence of significant rashes, suspicious appearing nevi or other concerning lesions.Neurologically, the patien t is awake and alert and the patient does not have any focal neurological deficit. Cranial nerves are essentially intact. - Labs CBC & Chem 7: 08/07/22 04:24 08/07/22 04:24 Labs: Abnormal Lab Results - Last 24 Hours (Table) 08/06/22 08/06/22 08/06/22 Range/Units 10:10 10:10 10:10 RBC 3.08 L (3.80-5.40) m/uL Hgb 8.8 L (11.4-16.0) gm/dL Hct 28.7 L (34.0-46.0) % MCHC 30.6 L (31.0-37.0) g/dL RDW 17.3 H (11.5-15.5) % Lymphocytes # (1.0-4.8) k/uL PT 12.9 H (9.0-12.0) sec INR 1.2 H (<1.2) Chloride 109 H (98-107) mmol/L Carbon Dioxide 19 L (22-30) mmol/L BUN 27 H (7-17) mg/dL Creatinine 1.33 H (0.52-1.04) mg/dL Glucose (74-99) mg/dL Ionized Calcium [place] (4.5-5.3) mg/dL Magnesium (1.6-2.3) mg/dL Total Protein 5.6 L (6.3-8.2) g/dL 08/07/22 08/07/22 Range/Units 04:24 04:24 RBC 3.00 L (3.80-5.40) m/uL Hgb 8.9 L (11.4-16.0) gm/dL Hct 27.7 L (34.0-46.0) % MCHC (31.0-37.0) g/dL RDW 17.4 H (11.5-15.5) % Lymphocytes # 0.8 L (1.0-4.8) k/uL PT (9.0-12.0) sec INR (<1.2) Chloride (98-107) mmol/L Carbon Dioxide 20 L (22-30) mmol/L BUN 24 H (7-17) mg/dL Creatinine 1.18 H (0.52-1.04) mg/dL Glucose 109 H (74-99) mg/dL Ionized Calcium [place] 5.4 H (4.5-5.3) mg/dL Magnesium 2.4 H (1.6-2.3) mg/dL Total Protein 5.8 L (6.3-8.2) g/dL Assessment and Plan Plan: Transcatheter aortic valve replacement/tavern and the patient is also given #1. Surgery was done for exertional dyspnea and severe prosthetic aortic valve stenosis clinically doing well and the patient is currently on room air oxygen. No cardiac arrhythmias. Blood pressure is under better control. Echocardiogram is pending. Shortness of breath secondary to above Coronary artery disease with previous bypass surgery. The patient also has undergone multiple stenting. Preop cardiac catheterization was done on 05/02/2022 and showed patent PORTILLO to LAD and patent SVG to PDA. A drug-eluting stent was placed in the left main coronary artery. Carotid stenosis in order of 50-70% involving the left internal carotid artery. History of sick sinus syndrome, and the patient has a pacemaker in place History of atrial fibrillation Hypertension, currently hypertensive and the blood pressure needs to be tightly controlled Hyperlipidemia Gout Impaired hearing History of breast cancer with previous lumpectomy and radiation therapy History of atrial fibrillation Chronic kidney disease, stage III with a creatinine of 1.3 and a GFR of 38 Anemia of chronic disease Plan Obtain echocardiogram to evaluate valvular function Provide incentive spirometer Chest x-ray stable The patient's cardiac rhythm is currently paced and the patient has a pacemaker in place Patient is currently off Cleviprex and the patient was given losartan for blood pressure control The patient on aspirin and Plavix and consider restarting anticoagulation with Eliquis Continue Toprol-XL 25 mg by mouth daily Outpatient medications and resumed with exception of Eliquis Monitor renal function, creatinine is improved Will follow. Possibly home today
[2022-08-07] MEDS ORDERED: LOSARTAN 25 MG TAB PO STA (08:59)
[2022-08-07] MEDS ORDERED: allopurinoL 300 MG TAB PO SCH (09:00)
[2022-08-07] MEDS ORDERED: CHOLECALCIFEROL 25 MCG (1000 IU) TABLET PO SCH (09:00)
[2022-08-07] MEDS ORDERED: ASCORBIC ACID 500 MG TAB PO SCH (09:00)
[2022-08-07] MEDS ORDERED: bisacodyL 10 MG SUPP RECTAL PRN (09:00)
[2022-08-07] MEDS ORDERED: METOPROLOL SUCCINATE (ER) 25 MG TAB.ER.24H PO SCH (09:00)
[2022-08-07] MEDS ORDERED: SERTRALINE 50 MG TAB PO SCH (09:00)
[2022-08-07] MEDS ORDERED: MAGNESIUM HYDROXIDE 2,400 MG/10 ML CUP PO PRN (09:00)
[2022-08-07] MEDS ORDERED: CLOPIDOGREL 75 MG TAB PO SCH (09:00)
[2022-08-07] MEDS ORDERED: ASPIRIN 81 MG PO SCH (09:00)
--- NOTE | 2022-08-07 09:26 | P.PN ---
Subjective Progress Note Date: 08/07/22 Principal diagnosis: Prosthetic aortic valvular stenosis. Past medical history significant for coronary artery disease status and aortic valve stenosis status post coronary artery bypass grafting and aortic valve replacement by Dr. Hatfield in 2009 and history of PCI with drug-eluting stent placement, chronic renal insufficiency, persistent atrial fibrillation, sick sinus syndrome status post permanent pacemaker placement, hypertension, hyperlipidemia, gout, breast cancer status post radiation in 2011 and is a lifetime nonsmoker. POD #1 Percutaneous aortic valve implantation using a 23 mm Medtronic Core-Valve Evolut-Pro Plus, transesophageal echocardiogram performed by anesthesia, ultrasound-guided access and repair of right femoral artery access site by Perclose closure device, placement of temporary pacemaker wire, aortic root angiography. The patient was seen and examined in follow-up today 08/07/2022 at her bedside in the intensive care unit. Currently she is sitting up to bedside chair, is awake, alert, oriented 3 and is in no acute distress. She has been on Cleviprex drip at 3 mg per hour during the night and was discontinued this morning at around 7 AM. She remains hemodynamically stable and is currently on no inotropic or pressor support. Bedside telemetry showing a paced rhythm with a heart rate of 60 BPM. Oxygen saturations are 96% on room air and she is achieving 1000 mL on her incentive spirometry with encouragement. Bedside transthoracic 2-D echocardiogram this morning is pending. She denies any complaints of pain and reports she has had a couple episodes of some shortness of breath with ambulating to the bathroom but significantly feels better than before the TAVR procedure. Laboratory results this morning show a WBC count of 7.9, hemoglobin 8.9, hematocrit 27.7, platelets 171, sodium 137, potassium 4.1, CO2 20, BUN 24, creatinine 1.18, glucose 109, calcium 9.3, ionized calcium 5.4, and magnesium 2.4. She has been up ambulating to the bathroom with standby assistance from nursing staff. She's been afebrile the last 24 hours. Objective - Vital Signs Vital signs: Vital Signs Temp 98 F 08/07/22 04:00 Pulse 60 08/07/22 07:00 Resp 16 08/07/22 07:00 BP 127/60 08/06/22 22:00 Pulse Ox 93 L 08/07/22 07:33 FiO2 Intake & Output 08/06/22 08/07/22 08/07/22 18:59 06:59 18:59 Intake Total 639.2 299.067 542.367 Output Total 300 300 Balance 339.2 -0.933 542.367 Weight 60 kg 58.6 kg Intake: IV 220 40 Lactated Ringers 1,000 ml 220 40 @ 50 mls/hr IV .Q20H [facility] Rx#:[id number] Intake, IV Titration 639.2 79.067 22.367 Amount Clevidipine Butyrate 25 19.2 59.067 22.367 mg In Empty Bag 1 bag @ 1 MG/HR 2 mls/hr IV .Q24H [facility] Rx#:[id number] Lactated Ringers 1,000 ml 420 20 @ 50 mls/hr IV .Q20H [facility] Rx#:[id number] Magnesium Sulfate-D5w Pmx 200 1 gm In Dextrose/Water 1 100ml.bag @ 100 mls/hr IVPB Q1H [facility] Rx#: [id number] Oral 480 Output: Urine 300 300 Other: Voiding Method Bedside Commode Bedside Commode # Voids 1 0 ABP, PAP, CO, CI - Last Documented Arterial Blood Pressure 121/51 - Exam CONSTITUTIONAL: Sitting up to the bedside chair in the intensive care unit, appears comfortable, cooperative, no apparent acute distress. HEENT: Neck is supple, no JVD, no lymphadenopathy. RESPIRATORY: Lungs sounds essentially clear throughout. Respirations are symmetrical and nonlabored. Currently on room air with oxygen saturations 96%. Able to achieve 1000 mL on her incentive spirometry. Strong cough. CARDIOVASCULAR: Regular rhythm and rate. S1 and S2 present, negative for S3, or gallop. Soft systolic murmur heard best to her right sternal border. Palpable peripheral pulses bilaterally, no edema to her bilateral lower extremities. No calf pain or tenderness noted. Knee-high VESNA hose and sequential compression devices in place to his bilateral lower extremities. GASTROINTESTINAL: Abdomen soft, nontender, nondistended. Active bowel sounds present 4 quadrants. Tolerating diet. Passing flatus. No guarding or rigidity. GENITOURINARY: Continues to void. Urine output 300 mL in the last 8 hours INTEGUMENTARY: Skin is warm and dry with no evidence of clubbing or cyanosis. Bilateral groin sites, clean, dry, and soft palpate. NEUROLOGIC: Cranial nerves II through XII intact. No focal deficits. MUSKULOSKELETAL: Able to move all extremities, strength equal bilaterally. PSYCHIATRIC: Alert and oriented to person place and time, appropriate affect, intact judgment and insight. - Allied health notes Allied health notes reviewed: nursing - Labs CBC & Chem 7: 08/07/22 04:24 08/07/22 04:24 Labs: Abnormal Lab Results - Last 24 Hours (Table) 08/06/22 08/06/22 08/06/22 Range/Units 10:10 10:10 10:10 RBC 3.08 L (3.80-5.40) m/uL Hgb 8.8 L (11.4-16.0) gm/dL Hct 28.7 L (34.0-46.0) % MCHC 30.6 L (31.0-37.0) g/dL RDW 17.3 H (11.5-15.5) % Lymphocytes # (1.0-4.8) k/uL PT 12.9 H (9.0-12.0) sec INR 1.2 H (<1.2) Chloride 109 H (98-107) mmol/L Carbon Dioxide 19 L (22-30) mmol/L BUN 27 H (7-17) mg/dL Creatinine 1.33 H (0.52-1.04) mg/dL Glucose (74-99) mg/dL Ionized Calcium [place] (4.5-5.3) mg/dL Magnesium (1.6-2.3) mg/dL Total Protein 5.6 L (6.3-8.2) g/dL 08/07/22 08/07/22 Range/Units 04:24 04:24 RBC 3.00 L (3.80-5.40) m/uL Hgb 8.9 L (11.4-16.0) gm/dL Hct 27.7 L (34.0-46.0) % MCHC (31.0-37.0) g/dL RDW 17.4 H (11.5-15.5) % Lymphocytes # 0.8 L (1.0-4.8) k/uL PT (9.0-12.0) sec INR (<1.2) Chloride (98-107) mmol/L Carbon Dioxide 20 L (22-30) mmol/L BUN 24 H (7-17) mg/dL Creatinine 1.18 H (0.52-1.04) mg/dL Glucose 109 H (74-99) mg/dL Ionized Calcium [place] 5.4 H (4.5-5.3) mg/dL Magnesium 2.4 H (1.6-2.3) mg/dL Total Protein 5.8 L (6.3-8.2) g/dL - Imaging and Cardiology Chest x-ray: report reviewed, image reviewed Assessment and Plan Assessment: 1. Prosthetic aortic valvular stenosis, status post percutaneous aortic valve implantation using a 23 mm [id number] Core-Valve Evolut-Pro Plus 2. History of hypertension 3. History of hyperlipidemia 4. History of aortic valve stenosis status post aortic valve replacement in 2009 using a 21 mm Thermafix bovine tissue valve by Dr. Oswaldo Hatfield 5. History of coronary artery disease status post 2 vessel coronary artery bypass grafting surgery by Oswaldo Hatfield in 2009 and history of previous PCI in April 2022 6. Chronic renal insufficiency 7. Persistent atrial fibrillation 8. Sick sinus syndrome status post permanent pacemaker placement 9. History of breast cancer status post radiation in 2011 10. History of gout 11. History of bilateral internal carotid artery stenosis with a 50% stenosis of the right internal carotid artery and 50-69% to the left internal carotid artery 12. History of fall from standing with facial trauma in April 2022 13. Lifetime nonsmoker. Plan: 1. Reinforced with the patient the importance to hold both groins when coughing or sneezing. 2. Cozaar increased to 25 mg by mouth daily. 3. Continue pain control per current when necessary orders. 4. Discharge planning is in place, anticipate discharge home within the next 24 hours. 5. Continue to optimize medical management with statin, beta cyndi, Eliquis 2.5 mg by mouth twice a day and Plavix. We will discontinue her low dose aspirin. 6. Increase activity as tolerated. Out of bed for all meals. 7. Remove left radial arterial line. 8. Results of transthoracic 2-D echocardiogram pending. 9. More recommendations to follow based on patient's clinical course. Time with Patient: Greater than 30
--- NOTE | 2022-08-07 09:27 | XR ---
EXAMINATION TYPE: XR chest 1V portable DATE OF EXAM: 08/07/2022 COMPARISON: 08/06/2022 HISTORY: Postop TECHNIQUE: Single frontal view of the chest is obtained. FINDINGS: Postsurgical changes cardiac device. Diffuse interstitial pattern. Surgical clips or axill a. No pneumothorax or pleural effusion. No focal pneumonia. IMPRESSION: 1. Cardiomegaly correlate for chronic interstitial pulmonary fibrosis. Superimposed mild pneumonitis mild venous congestion entirely excluded.
--- NOTE | 2022-08-07 11:29 | CA ---
Transthoracic Echo Report Name: Adelaida García Age: 82 Gender: F : 1940 Exam Date: 08/07/2022 09:50 Exam Location: [facility] Ht (in): 60 Wt (lb): 126 Ordering Physician: Pepe Hoang Attending/Referring Phys: Mani Alas DO ([email or web address]) Foreman/Project Manager Sonia Kauffman RDCS Procedure CPT: Indications: Postop TAVR Cardiac Hx: Technical Quality: Contrast 1: Total Dose (mL): Contrast 2: Total Dose (mL): MEASUREMENTS (Male / Female) Normal Values 2D ECHO LV Diastolic Diameter PLAX 4.0 cm 4.2 - 5.9 / 3.9 - 5.3 cm LV Systolic Diameter PLAX 2.5 cm IVS Diastolic Thickness 1.2 cm 0.6 - 1.0 / 0.6 - 0.9 cm LVPW Diastolic Thickness 1.3 cm 0.6 - 1.0 / 0.6 - 0.9 cm LV Relative Wall Thickness 0.6 RV Internal Dim ED PLAX 3.1 cm LA Volume 64.7 cm??? 18 - 58 / 22 - 52 cm??? DOPPLER AV Peak Velocity 241.8 cm/s AV Peak Gradient 23.4 mmHg AV Mean Velocity 147.4 cm/s AV Mean Gradient 10.2 mmHg AV Velocity Time Integral 47.6 cm AI Peak Velocity 316.0 cm/s AI Peak Gradient 39.9 mmHg AI Pressure Half Time 316.2 ms LVOT Peak Velocity 95.4 cm/s LVOT Peak Gradient 3.6 mmHg MV Area PHT 5.2 cm??? Mitral E Point Velocity 137.1 cm/s Mitral A Point Velocity 35.7 cm/s Mitral E to A Ratio 3.8 MV Deceleration Time 145.4 ms MV E' Velocity 4.4 cm/s Mitral E to MV E' Ratio 31.0 TR Peak Velocity 343.7 cm/s TR Peak Gradient 47.3 mmHg Right Ventricular Systolic Press 50.2 mmHg FINDINGS Left Ventricle Left ventricular ejection fraction is estimated at 45%. Right Ventricle Normal right ventricular size and function. Moderate to severe pulmonary hypertension. Right Atrium Normal right atrial size. Left Atrium Moderately increased left atrial volume. Mitral Valve Structurally normal mitral valve.. Futy-dl-abiufrxl mitral regurgitation. Aortic Valve Bioprosthetic aortic valve without stenosis with a peak velocity of 24 m/s, peak gradient 23mmHg, mean gradient 10 mmHg. Trace paravalvular aortic regurgitation. Tricuspid Valve Structurally normal tricuspid valve. Moderate tricuspid regurgitation. Pulmonic Valve Structurally normal pulmonic valve. Pericardium Normal pericardium. Aorta Normal size aortic root and proximal ascending aorta. CONCLUSIONS Left ventricular ejection fraction 45% RVSP 50 Mild to moderate mitral regurgitation Normally functioning TAVR bioprosthetic aortic valve with trace paravalvlular leak Moderate tricuspid regurgitation Previewed by: Dr. Mani Alas DO (Electronically Signed) Final Date: 07 August 2022 11:28
[2022-08-07 17:25] VITALS: BMI 25.2
[2022-08-07 18:52] VITALS: BP 137/59; RESP 16; TEMP 98
[2022-08-07] MEDS ORDERED: APIXABAN 2.5 MG TABLET PO SCH (21:00)
[2022-08-07] MEDS ORDERED: ATORVASTATIN 40 MG TAB PO SCH (21:00)
[2022-08-07] MEDS ORDERED: SENNOSIDES-DOCUSATE SODIUM 1 EACH TAB PO SCH (21:00)
[2022-08-08] MEDS ORDERED: LOSARTAN 25 MG TAB PO SCH (09:00)
--- NOTE | 2022-08-08 15:52 | P.DS ---
Providers Date of admission: 08/06/22 05:54 Expected date of discharge: 08/07/22 Attending physician: Munir Quevedo Consults: 08/06/22 06:00 Consult to Anesthesia Routine Consulting Provider: Anesthesia,Services Consult Reason/Comments: Cardiac Surgery Pre-Op 08/06/22 09:51 Consult Physician Routine Consulting Provider: Radha Claudio Consult Reason/Comments: Price Checker Consult: post cardiac surgery Do you want consulting provider notified?: Yes Consult Physician Routine Consulting Provider: Munir Quevedo Consult Reason/Comments: Animal Warden Consult: post cardiac surgery Do you want consulting provider notified?: Yes Primary care physician: ELEAZAR CHUN DO Hospital Course: FINAL DIAGNOSIS: 1. Prosthetic aortic valvular stenosis, status post percutaneous aortic valve implantation using a 23 mm Medtronic Core-Valve Evolut-Pro Plus 2. History of hypertension 3. History of hyperlipidemia 4. History of aortic valve stenosis status post aortic valve replacement in 2009 using a 21 mm Thermafix bovine tissue valve by Dr. Oswaldo Hatfield 5. History of coronary artery disease status post 2 vessel coronary artery bypass grafting surgery by Oswaldo Hatfield in 2009 and history of previous PCI in April 2022 6. Chronic renal insufficiency 7. Persistent atrial fibrillation 8. Sick sinus syndrome status post permanent pacemaker placement 9. History of breast cancer status post radiation in 2011 10. History of gout 11. History of bilateral internal carotid artery stenosis with a 50% stenosis of the right internal carotid artery and 50-69% to the left internal carotid artery 12. History of fall from standing with facial trauma in April 2022 13. Lifetime nonsmoker. PRINCIPAL PROCEDURE: 1. Percutaneous aortic valve implantation using a 23 mm Medtronic Core-Valve Evolute Plus 2. Transesophageal echocardiogram performed by anesthesia 3. Ultrasound-guided access and repair of right femoral artery access site by Perclose closure device 4. Placement of temporary pacemaker wire 5. Aortic root angiography HISTORY OF PRESENT ILLNESS: This is an 82-year-old female patient who follows in our outpatient basis with Dr. Chun for her primary care and with Dr. Mani Alas for her cardiology care. Recently, over the past 1-3 months she has had complaints of increased dyspnea on exertion as well as some lightheadedness. She was subsequently referred to the structural heart clinic for evaluation for transcatheter aortic valve replacement after heart catheterization and transesophageal echocardiogram were completed. Her transesophageal echocardiogram results demonstrated an ejection fraction of 55-60%, severe prosthetic aortic valve stenosis with an aortic valve measuring 0.6 cm, a mean gradient of 39.5 and a V max of 4.3 m/s. It also demonstrated mild mitral valve regurgitation and moderate tricuspid valve regurgitation. Her heart catheterization which was completed on 05/02/2022 demonstrated a 70% stenosis to her left main coronary artery, a 70% stenosis to her proximal left anterior descending coronary artery a mid LAD stenosis of 100%, a mid circumflex 100% stenosis and a 100% stenosis to her mid right coronary artery. It also demonstrated a patent left internal mammary artery to the left anterior descending coronary artery and a patent saphenous vein graft to the posterior descending coronary artery. She also underwent successful stenting of the left main coronary artery with a 4.0 x 12 mm Xience drug-eluting stent. After her workup was completed and STS risk score was calculated along with an incremental risk score the patient was felt to be a good candidate for transcatheter aortic valve replacement. The usual course of TAVR was discussed in detail with the patient, risks and benefits were reviewed, shared decision making between cardiology, cardiothoracic surgery and the patient took place and the patient consented to proceed with the procedure. HOSPITAL COURSE: The patient was brought to the hospital on 08/06/2022, was taken to the extended stay area, prepared in the usual fashion and subsequently taken to the cardiac catheterization laboratory where Dr. Alas and Dr. Munir Quevedo completed a percutaneous aortic valve implantation using a 23 mm Medtronic Core-Valve Evolute Plus procedure under general anesthesia, with fluoroscopy and SHEMAR. The valve was deployed under rapid ventricular pacing and proceeded without event. At the end of the procedure hemodynamics were felt to be acceptable and there was mild paravalvular leak at the left coronary cusp with a mean gradient of 8 mmHg. Upon completion of the procedure the patient was extubated and was transferred to the cardiovascular intensive care unit where she was recovered and monitored hemodynamically. Her oxygen was titrated down, she was tolerating an oral diet, her her pain was well controlled and she was ready to be discharged home on postoperative day #1. Follow-up transthoracic 2-D echocardiogram today 08/07/2022 demonstrated a left ventricular ejection fraction estimated at 45%, a bioprosthetic aortic valve without stenosis with a peak velocity of 24 m/s, a peak gradient of 23 mmHg, a mean gradient of 10 mmHg, trace paravalvular aortic valve regurgitation, moderate to severe pulmonary hypertension, mild to moderate mitral valve regurgitation, a structurally normal tricuspid valve with moderate tricuspid valve regurgitation and a normal pericardium. She has received written and verbal instructions regarding her medications, activity restrictions, signs and symptoms requiring physician notification and her follow-up appointments. The patient will not be discharged home on low-dose aspirin, as she is on Plavix and Eliquis for anticoagulation. Plan - Discharge Summary Discharge Rx Participant: No New Discharge Prescriptions: New Losartan [Cozaar] 25 mg PO DAILY #30 tab Apixaban [Eliquis] 2.5 mg PO BID #60 tab Pantoprazole [Protonix] 40 mg PO AC-BRKFST #30 tab Acetaminophen Tab [Tylenol] 1,000 mg PO Q6HR PRN tab PRN Reason: Fever And/ Or Mild Pain (1-3) Continue allopurinoL [Zyloprim] 300 mg PO DAILY Gabapentin 600 mg PO BID Fenofibrate Nanocrystallized [Fenofibrate] 145 mg PO HS Levocetirizine Dihydrochloride [Xyzal] 5 mg PO DAILY PRN PRN Reason: allergies Metoprolol Succinate (ER) [Toprol XL] 25 mg PO DAILY Cholecalciferol [Vitamin D3 (25 Mcg = 1000 Iu)] 25 mcg PO DAILY Ascorbic Acid [Vitamin C] 500 mg PO DAILY ALPRAZolam [Xanax] 0.5 mg PO BID PRN PRN Reason: Anxiety Sertraline [Zoloft] 50 mg PO DAILY Clopidogrel [Plavix] 75 mg PO DAILY Atorvastatin [Lipitor] 40 mg PO HS Ipratropium [place] [Ipratropium [place] 0.03%] 1 spray NASAL DAILY PRN PRN Reason: Nasal Congestion traMADol HCl [Ultram] 50 mg PO Q8HR PRN PRN Reason: Pain Discontinued Furosemide [Lasix] 20 mg PO DAILY Apixaban [Eliquis] 5 mg PO BID Potassium Chloride [Klor-Con 20] 20 meq PO DAILY Aspirin 81 mg PO DAILY Discharge Medication List Gabapentin 600 mg PO BID 03/27/15 [History] allopurinoL [Zyloprim] 300 mg PO DAILY 03/27/15 [History] Fenofibrate Nanocrystallized [Fenofibrate] 145 mg PO HS 05/07/22 [History] ALPRAZolam [Xanax] 0.5 mg PO BID PRN 08/04/22 [History] Ascorbic Acid [Vitamin C] 500 mg PO DAILY 08/04/22 [History] Cholecalciferol [Vitamin D3 (25 Mcg = 1000 Iu)] 25 mcg PO DAILY 08/04/22 [History] Levocetirizine Dihydrochloride [Xyzal] 5 mg PO DAILY PRN 08/04/22 [History] Sertraline [Zoloft] 50 mg PO DAILY 08/04/22 [History] Atorvastatin [Lipitor] 40 mg PO HS 08/06/22 [History] Clopidogrel [Plavix] 75 mg PO DAILY 08/06/22 [History] Ipratropium [place] [Ipratropium [place] 0.03%] 1 spray NASAL DAILY PRN 08/06/22 [History] Metoprolol Succinate (ER) [Toprol XL] 25 mg PO DAILY 08/06/22 [History] traMADol HCl [Ultram] 50 mg PO Q8HR PRN 08/06/22 [History] Acetaminophen Tab [Tylenol] 1,000 mg PO Q6HR PRN tab 08/07/22 [Rx] Apixaban [Eliquis] 2.5 mg PO BID #60 tab 08/07/22 [Rx] Losartan [Cozaar] 25 mg PO DAILY #30 tab 08/07/22 [Rx] Pantoprazole [Protonix] 40 mg PO AC-BRKFST #30 tab 08/07/22 [Rx] Follow up Appointment(s)/Referral(s): ELEAZAR CHUN DO [Primary Care Provider] - As Needed Mani Alas DO [STAFF PHYSICIAN] - 08/14/22 2:30 pm (Your appointment 08/14/22 at 2:30 pm is in the [place] office at [address] [place] [address] Dr. Robison [place] is for 1 week post TAVR groin check. Office number is [phone]. You also have a 30 post TAVR echo at [facility] in the [place] office September 17/2022 at 1 pm. Please go to the TAVR clinic after your echo is completed. You also have a one year follow up echo scheduled for TAVR follow up for August 11/2023 at 2:30 PM at the [place] associate director of development office.) Clinic,Structural Heart [NON-STAFF] - 09/17/22 2:30 pm (Please come to valve clinic after 30 day TAVR echo, September 17/2022.) Ambulatory/Diagnostic Orders: Complete Blood Count w/diff [LAB.AMB] Time Frame: 09/17/22, Facility: [facility], Location: Laboratory [facility] Comprehensive Metabolic Panel [LAB.AMB] Time Frame: 09/17/22, Facility: [facility], Location: Laboratory [facility] Activity/Diet/Wound Care/Special Instructions: DISCHARGE INSTRUCTIONS: 1. No driving for 1 week, or until physician gives their ok. 2. No lifting, pushing, or pulling more than 5-10 pounds for 1 week. 3. Hold both groins when you cough or sneeze for the next 2 weeks. Bruising is common, but report increased swelling, pain or fever >101F 4. Shower daily. No pool, hot tub, or bathtub for 1 week 5. No powders, lotions, ointments on incisions. 6. No straining, including for bowel movements. Use stool softner if necessary 7. Stairs are not an issue. Go slowly, using handrail and take 1 step at a time. Ambulate several times daily 8. Continue pain control per as needed orders. 9. Take only the medications listed on your discharge form 10. Eat low salt (limited to 2 grams or 2000 milligrams) daily, avoid adding salt, avoid canned/processed foods 11. Take your weight daily in the morning and record, bring with you to your follow up appointments 12. Keep all follow up appointments. You will need a valve clinic appointment at 30 days and 1 year post procedure for follow up 13. You have been referred to and are expected to begin Cardiac Rehab in approximately 4 weeks. 14. You will need antibiotics prior to any dental work, including cleanings, and any surgeries to prevent Endocarditis (bacterial infection in your heart) For any questions or concerns please call your valve coordinators: Kae or Dereje @ Discharge Disposition: HOME SELF-CARE
== END 2022-08-07 18:50 | disposition home or self-care (01) | DRG 267 ==
LOC: 2ORMAIN 08-06 05:54 → 2SICU 08-06 09:32
PROVIDERS: ADMIT Thoracic Surgery (Cardiothoracic Vascular Surgery); ATTEND Thoracic Surgery (Cardiothoracic Vascular Surgery)
PROC: 4A023N7 Measurement of Cardiac Sampling and Pressure, Left Heart, Percutaneous Approach (ICD-10-PCS; 2022-08-06)
PROC: B3101ZZ Fluoroscopy of Thoracic Aorta using Low Osmolar Contrast (ICD-10-PCS; 2022-08-06)
PROC: 02RF37Z Replacement of Aortic Valve with Autologous Tissue Substitute, Percutaneous Approach (ICD-10-PCS; principal; 2022-08-06 08:00)
PROC: B3101ZZ Fluoroscopy of Thoracic Aorta using Low Osmolar Contrast (ICD-10-PCS; 2022-08-06 08:00)
DX: T82.857A Stenosis of other cardiac prosthetic devices, implants and grafts, initial encounter (principal); I48.19 Other persistent atrial fibrillation; I27.20 Pulmonary hypertension, unspecified; D63.1 Anemia in chronic kidney disease; N18.30 Chronic kidney disease, stage 3 unspecified; I65.23 Occlusion and stenosis of bilateral carotid arteries; I08.3 Combined rheumatic disorders of mitral, aortic and tricuspid valves; I12.9 Hypertensive chronic kidney disease with stage 1 through stage 4 chronic kidney disease, or unspecified chronic kidney disease; I49.5 Sick sinus syndrome; I25.82 Chronic total occlusion of coronary artery; I25.10 Atherosclerotic heart disease of native coronary artery without angina pectoris; E78.5 Hyperlipidemia, unspecified; H91.93 Unspecified hearing loss, bilateral; M10.9 Gout, unspecified; Z97.4 Presence of external hearing-aid; Z95.1 Presence of aortocoronary bypass graft; Z79.899 Other long term (current) drug therapy; Z79.82 Long term (current) use of aspirin; Z79.02 Long term (current) use of antithrombotics/antiplatelets; Z79.01 Long term (current) use of anticoagulants; Z92.3 Personal history of irradiation; Z95.0 Presence of cardiac pacemaker; Z85.3 Personal history of malignant neoplasm of breast; Z91.81 History of falling; Z28.310 Unvaccinated for COVID-19
CPT/HCPCS: 33210; 33362; 71045; 80053; 82330; 83735; 85025; 85610; 85730; 86850; 86900; 86901; 87635; 93306; 93312; 93320; 93325

== ENCOUNTER → 2022-08-04 | Outpatient (CLI) | payer MEDICARE ==
[2022-08-04 18:03] LABS: % Iron Saturation 6.84 (12.00-45.00); Ferritin 47.9 ng/mL (10.0-291.0)
== END | disposition home or self-care (01) ==
LOC: LABWHC1 11:08
PROVIDERS: ATTEND Internal Medicine Gastroenterology
DX: D64.9 Anemia, unspecified (principal)
CPT/HCPCS: 36415; 82728; 83540; 83550

== ENCOUNTER → 2022-08-04 | Outpatient (CLI) | payer MEDICARE ==
[2022-08-04 13:23] LABS: INR 1.1 (<1.2); Partial Thromboplastin Time 23.1 sec (22.0-30.0); Prothrombin Time 11.7 sec (9.0-12.0)
[2022-08-04 17:46] LABS: Basophils # (A) 0.02 X 10*3/uL (0.00-0.10); Basophils % (A) 0.3 %; Eosinophils % (A) 1.5 %; HCT 28.9 % (37.2-46.3); HGB 8.9 g/dL (12.0-15.0); Immature Grans, Automated 0.3 %; Lymphocytes % (A) 17.8 %; MCH 28.9 pg (27.0-32.0); MCHC 30.8 g/dL (32.0-37.0); MCV 93.8 fL (80.0-97.0); Mean Platelet Volume 11.3 fL (9.5-12.2); Monocytes # (A) 0.53 X 10*3/uL (0.20-1.00); Monocytes % (A) 7.8 %; NRBC Per 100 WBC 0 /100 WBCS (0.0-0.0); Neutrophils # (A) 4.89 X 10*3/uL (1.80-7.70); Neutrophils % (A) 72.3 %; Platelet Count 223 X 10*3/uL (140-440); RBC 3.08 X 10*6/uL (4.10-5.20); RDW 17.1 % (11.5-14.5); WBC 6.76 X 10*3/uL (4.50-10.00)
[2022-08-04 17:51] LABS: African American GFR (CKD) 44.9 (60.0-200.0); Anion Gap 10.1 mmol/L (10.00-18.00); BUN/Creat Ratio 21.31 Ratio (12.00-20.00); Blood Urea Nitrogen 27.7 mg/dL (9.0-27.0); Carbon Dioxide 22.9 mmol/L (20.0-27.5); Non-African American GFR(CKD) 38.7 (60.0-200.0); Potassium 4.7 mmol/L (3.5-5.5)
== END | disposition home or self-care (01) ==
LOC: LABWHC1 11:11
PROVIDERS: ATTEND Thoracic Surgery (Cardiothoracic Vascular Surgery)
DX: Z01.812 Encounter for preprocedural laboratory examination (principal); I35.0 Nonrheumatic aortic (valve) stenosis; I35.1 Nonrheumatic aortic (valve) insufficiency; Z79.899 Other long term (current) drug therapy; R58 Hemorrhage, not elsewhere classified
CPT/HCPCS: 36415; 80048; 85025; 85610; 85730

== ENCOUNTER → 2022-09-29 | Outpatient (CLI) | payer MEDICARE ==
[2022-09-29 12:49] LABS: Anisocytosis Slight; HCT 34.8 % (34.0-46.0); HGB 10.4 gm/dL (11.4-16.0); Hypochromasia Marked; MCH 27.8 pg (25.0-35.0); MCHC 29.9 g/dL (31.0-37.0); MCV 92.9 fL (80.0-100.0); Mean Platelet Volume 10.1; Platelet Count 214 k/uL (150-450); RBC 3.74 m/uL (3.80-5.40); RDW 19.3 % (11.5-15.5); WBC 8.3 k/uL (3.8-10.6)
[2022-09-29 12:51] LABS: African American GFR (CKD) 53 (>60 ml/min/1.73 sqM); Anion Gap 7 mmol/L; Blood Urea Nitrogen 28 mg/dL (7-17); Calcium 9.8 mg/dL (8.4-10.2); Carbon Dioxide 26 mmol/L (22-30); Chloride 108 mmol/L (98-107); Glucose 93 mg/dL (74-99); Non-African American GFR(CKD) 46 (>60 ml/min/1.73 sqM); Potassium 5.2 mmol/L (3.5-5.1); Sodium 141 mmol/L (137-145)
== END | disposition home or self-care (01) ==
LOC: LABWHC1 11:49
PROVIDERS: ATTEND Nurse Practitioner Acute Care
DX: Z95.2 Presence of prosthetic heart valve (principal)
CPT/HCPCS: 36415; 80048; 85027

== ENCOUNTER → 2022-10-30 | Outpatient (CLI) | payer MEDICARE ==
--- NOTE | 2022-10-30 15:30 | P.PAINPG ---
PQRS Measure Charge Sheet Comment: HISTORY OF PRESENT ILLNESS: 82 yr old female as a referral from Dr Garcia presents today w severe and chronic LBP secondary to spondylosis, DDD and facet arthropathy without myelopathy for evaluation. Pt states pain level is at 5 /10 in intensity, constant, localized in the lower lumbar spine, sharp in character w shooting pain towards the BLEs. Pain is provoked by standing/ walking. Pain is alleviated by PT x 6 wks in 2019, medications (Neurontin), topicals, use of a wheelchair for ambulation, repositioning and rest. PMH: CAD, GERD, Hyperlipidemia, HTN PSH: Aortic Valve Stenosis, Hx of R Breast CA (Radiation 2012) w Lumpectomy, Hysterectomy, Bowel Resection secondary to Bowel Polyps, CABG (2021), Cardiac Cath x2, Pacemaker, Lumbar Hardware placement, SHEMAR SH: Use of a cane for ambulation, BL Hearing Aid use, Never smoker, No ETOH abuse, No illicit drug use. FH: Mo- CA. Fa- CAD. All: NKDA Meds: See list REVIEW OF ORGAN SYSTEMS: CONSTITUTIONAL: No fevers or chills. No recent weight loss. NEUROLOGICAL: + numbness and tingling along the distal ex tremities. No seizure disorders or headaches. MUSCULOSKELETAL: + pain PSYCHIATRIC: Denies current depression or suicidal thoughts. Physical Examinations : Constitutional : Cooperative , not in acute distress . Neurologic : Cranial nerve II to XII intact. No focal neurological deficits. Psychiatric : alert & oriented x 3. Matching mood & appropriate affect. Judgment & insight intact. Musculoskeletal : Cervical Spine Motor strength in the deltoid and biceps: Normal right side. Normal Left side Motor strength biceps and the wrist extensors: Normal right side . Normal left side Motor strength in the triceps muscle: Normal right side. Normal left side Deep tendon reflexes: Normal at the biceps. Normal at Brachioradialis. Normal at triceps Vertebral body tenderness to deep palpation over Cervical facet loading test: positive bilaterally Spurling test: positive bilaterally Neck distraction test: positive bilaterally Marisol sign: positive bilaterally Lumbar spine Motor strength lower extremities ,thigh and legs 5/5 Right side , 5/5 Left side Deep tendon reflexes : Normal Knee Jerk. Normal Ankle Jerk Vertebral body tenderness over L5 Lumbar facet Loading Test: positive Right / positive Left Range of motion of the lumbar spine Flexion 30 degrees, extension 10 degrees Straight Leg Raise test: Left/ Right positive at degree Lori test: positive right / positive left. Severe tenderness over the Sacroiliac joint on the Right / Left sides Gaenslen test: positive bilaterally Seated flexion test: positive bilaterally. Sacral spine : Severe tenderness over the Sacroiliac joint: right side / left side Range of motion: Flexion of the lumbar spine <60 degrees Range of motion: Extension of the lumbar spine <20 degrees Gaenslen's Test positive Betito's Test positive Lori test: positive right side / left side Thigh Thrust Test Sacral Thrust Test Imaging: Computed tomography scan with contrast of the lumbar spine from 04/18/22 reviewed Assessment/ Plan : Lumbar DDD Recommendation of CHELA L5-S1. May need a series of injections, up to 3 within a 6 mo period, for optimal pain relief. Risks, benefits of procedure discussed and patient verbalized understanding. Admits to aspirin or anti- coagulant use from Dr Alas, or medical history of diabetes. Protocol for discontinuation/ continuation of medications simi procedure discussed. Seeking medical clearance for medication from Dr Alas. All questions answered. I have spent greater than 30 minutes on patient care today. Dr Blake was available by phone for the evaluation of this patient. The time was used to review the medical records including relevant urine studies and Prescription history (MAPs), review of the available imaging, evaluation and examination of the patient, coordination of care with the medical staff and if applicable referring physicians, as well as creation of the medical record PQRS Narrative: Smoking Status Never smoker Home Medications: Ambulatory Orders Gabapentin 600 mg PO BID 03/27/15 allopurinoL [Zyloprim] 300 mg PO DAILY 03/27/15 Fenofibrate Nanocrystallized [Fenofibrate] 145 mg PO HS 05/07/22 ALPRAZolam [Xanax] 0.5 mg PO BID PRN 08/04/22 Ascorbic Acid [Vitamin C] 500 mg PO DAILY 08/04/22 Cholecalciferol [Vitamin D3 (25 Mcg = 1000 Iu)] 25 mcg PO DAILY 08/04/22 Levocetirizine Dihydrochloride [Xyzal] 5 mg PO DAILY PRN 08/04/22 Sertraline [Zoloft] 50 mg PO DAILY 08/04/22 Atorvastatin [Lipitor] 40 mg PO HS 08/06/22 Clopidogrel [Plavix] 75 mg PO DAILY 08/06/22 Ipratropium [place] [Ipratropium [place] 0.03%] 1 spray NASAL DAILY PRN 08/06/22 Metoprolol Succinate (ER) [Toprol XL] 25 mg PO DAILY 08/06/22 traMADol HCl [Ultram] 50 mg PO Q8HR PRN 08/06/22 Acetaminophen Tab [Tylenol] 1,000 mg PO Q6HR PRN tab 08/07/22 Apixaban [Eliquis] 2.5 mg PO BID #60 tab 08/07/22 Losartan [Cozaar] 25 mg PO DAILY #30 tab 08/07/22 Pantoprazole [Protonix] 40 mg PO AC-BRKFST #30 tab 08/07/22 Controlled Substance Measures - Controlled Substance Measures Is patient prescribed a controlled substance at discharge?: No
[2022-10-30 15:46] VITALS: BP 141/66; PULSE 70; RESP 16; TEMP 97.6
== END ==
LOC: PNWHC3 13:18
PROVIDERS: ATTEND Anesthesiology
DX: M51.36 Other intervertebral disc degeneration, lumbar region (principal); E78.5 Hyperlipidemia, unspecified; I10 Essential (primary) hypertension; K21.9 Gastro-esophageal reflux disease without esophagitis; I25.10 Atherosclerotic heart disease of native coronary artery without angina pectoris; Z79.01 Long term (current) use of anticoagulants; Z79.02 Long term (current) use of antithrombotics/antiplatelets
CPT/HCPCS: 99211

== ENCOUNTER → 2022-11-04 | Outpatient (CLI) | payer MEDICARE ==
[2022-11-04 18:33] LABS: Basophils # (A) 0.05 X 10*3/uL (0.00-0.10); Basophils % (A) 0.7 %; Eosinophils # (A) 0.22 X 10*3/uL (0.04-0.35); Eosinophils % (A) 2.9 %; HGB 11.7 g/dL (12.0-15.0); Immature Grans, Automated 0.3 %; Lymphocytes # (A) 1.42 X 10*3/uL (0.90-5.00); Lymphocytes % (A) 18.9 %; MCH 27.5 pg (27.0-32.0); MCHC 29.3 g/dL (32.0-37.0); MCV 93.9 fL (80.0-97.0); Mean Platelet Volume 11.1 fL (9.5-12.2); Monocytes # (A) 0.77 X 10*3/uL (0.20-1.00); Monocytes % (A) 10.2 %; NRBC Per 100 WBC 0 /100 WBCS (0.0-0.0); Neutrophils # (A) 5.04 X 10*3/uL (1.80-7.70); Platelet Count 306 X 10*3/uL (140-440); RBC 4.26 X 10*6/uL (4.10-5.20); RDW 20.8 % (11.5-14.5); WBC 7.52 X 10*3/uL (4.50-10.00)
== END | disposition home or self-care (01) ==
LOC: LABWHC1 13:21
PROVIDERS: ATTEND Internal Medicine Gastroenterology
DX: D50.9 Iron deficiency anemia, unspecified (principal)
CPT/HCPCS: 36415; 85025

== ENCOUNTER 2022-11-07 07:27 | Day surgery (SDC) | payer MEDICARE ==
[2022-11-04 12:12] VITALS: BMI 24.7
[~2022-11-07 07:27] MED LIST changes: +LACTATED RINGERS 1,000 ML IV SCH; -SODIUM CHLORIDE 0.9% 1,000 ML in EMPTY BAG 1 BAG IV ONE
[2022-11-07 07:53] VITALS: PULSE 70; RESP 16; TEMP 97
[2022-11-07] MEDS ORDERED: ESMOLOL 100 MG/10 ML VIAL ONE (08:02)
[2022-11-07] MEDS ORDERED: PROPOFOL 10 MG/ML 20 ML VIAL IV ONE (08:02)
[2022-11-07] MEDS ORDERED: LIDOCAINE 2% INJ 20 MG/ML (2 ML VIAL) ONE (08:02)
--- NOTE | 2022-11-07 09:09 | P.PCN ---
Date of Procedure: 11/07/22 Procedure(s) Performed: Brief history: Patient is a pleasant 82-year-old white female scheduled for an elective upper endoscopy as well as colonoscopy as a part of evaluation of iron deficiency anemia. Patient has history of A. fib and is presently on Xarelto which is on hold for the last 3 days. Procedure performed: Esophagogastroduodenoscopy with biopsy Colonoscopy Preoperative diagnosis: Iron deficiency anemia Anesthesia: MAC Procedure: After informed consent was obtained from the patient was brought into the endoscopy unit and IV sedation was administered by anesthesia under continuous monitoring. Initially upper endoscopy was done. The Olympus GF 160 video endoscope was inserted inserted into the mouth and esophagus intubated without any difficulty and was gradually advanced into the stomach and duodenum and carefully examined. The bulb and second part of the duodenum appeared normal. Abscesses were done from the duodenum to rule out celiac disease. The scope was then withdrawn into the stomach adequately insufflated with air and upon careful examination the antrum and body, cardia and fundus appeared normal. The scope was then withdrawn into the esophagus. The GE junction was located at 36 cm to the incisors. Small sliding type hiatal hernia noted. It appeared regular with no erythema erosions or ulcerations. Rest of the esophagus appeared normal. Patient tolerated the procedure well. At this time the patient continued to remain sedation. Initial digital rectal examination was normal. Olympus CF 160 video pediatric colonoscope was then inserted into the rectum and gradually advanced to the cecum with moderate to severe difficulty. Careful examination was performed as the scope was gradually being withdrawn. The prep was excellent. The cecum, ascending colon, transverse colon, descending colon, sigmoid colon and rectum appeared normal. Scattered sigmoid diverticulosis. Retroflexion was performed in the rectum and no lesions were noted. Patient tolerated the procedure well. Impression: 1. Upper endoscopy revealed small hiatal hernia but no evidence of esophagitis or peptic ulcer disease 2. Colonoscopy was within normal limits with no evidence of colorectal neoplasia or angiectasia. Scattered sigmoid diverticulosis. Recommendations: Findings of this examination were discussed with the patient as well as her family. She was advised to follow with the biopsy results. Advised to resume Xarelto. Monitor CBC periodically. Continue with iron supplements. She has persistent iron deficiency anemia she may be a candidate for a small bowel capsule endoscopy in the near future.
[2022-11-07 09:11] VITALS: BP 167/70
== END 2022-11-07 09:59 | disposition home or self-care (01) ==
LOC: ORWHC2ENDO 07:27
PROVIDERS: ATTEND Internal Medicine Gastroenterology
DX: D50.9 Iron deficiency anemia, unspecified (principal); K57.30 Diverticulosis of large intestine without perforation or abscess without bleeding; I10 Essential (primary) hypertension; K44.9 Diaphragmatic hernia without obstruction or gangrene; I48.91 Unspecified atrial fibrillation; I25.10 Atherosclerotic heart disease of native coronary artery without angina pectoris; Z95.5 Presence of coronary angioplasty implant and graft; C79.9 Secondary malignant neoplasm of unspecified site; Z79.899 Other long term (current) drug therapy; Z79.01 Long term (current) use of anticoagulants
CPT/HCPCS: 45378; 43239; J2704; J2001; 88305

== ENCOUNTER 2023-01-29 11:20 | Day surgery (SDC) | payer MEDICARE ==
[2023-01-29 11:44] VITALS: TEMP 97.3
[2023-01-29] MEDS ORDERED: MIDAZOLAM 2 MG/2 ML VIAL ONE (12:00)
[2023-01-29] MEDS ORDERED: IOPAMIDOL M200 10 ML VIAL ONE (12:00)
[2023-01-29] MEDS ORDERED: methylPREDNISolone ACETATE 40 MG/ML 1 ML VIAL ONE (12:00)
[2023-01-29] MEDS ORDERED: IV FLUID CONTINUATION 500 ML IV ONE (12:17)
--- NOTE | 2023-01-29 12:35 | FL ---
EXAMINATION TYPE: FL guided pain mgmt statistic DATE OF EXAM: 01/29/2023 HISTORY: Fluoroscopy time 6 seconds of fluoroscopy provided. DAP [id number] IMPRESSION: 1. Fluoroscopy time.
--- NOTE | 2023-01-29 12:42 | P.PCN ---
Date of Procedure: 01/29/23 Description of Procedure: Procedure: 1. L5-S1 Epidural steroid injection under fluoroscopic guidance # 1/ , 2. Lumbar epidurogram PREOPERATIVE DIAGNOSIS: Lumbar degenerative disc disease, and Lumbar radiculopathy. POSTOPERATIVE DIAGNOSIS: Lumbar degenerative disc disease, and Lumbar radiculopathy. SURGEON: Clarence Mast ANESTHESIA: Local with 1% lidocaine, and IV sedation: Versed 1 milligram Sedation supervision start time: 1204 Sedation supervision ended time 1212 EBL: None. Specimen removed: None Fluoroscopic image: saved to electronic medical records PROCEDURE INDICATION: The patient had history of Lumbar degenerative disc disease and Lumbar radiculopathy. Failed to conservative therapy. Presented for epidural steroid injection. PROCEDURE DESCRIPTION: The patient was seen and identified in the preoperative area. Risks, benefits, complications, and alternatives were discussed with the patient. The patient agreed to proceed with the procedure and signed the consent. IV was started, and vital signs were stable. Patient was taken to the procedure area, and time out was completed. The patient was placed in the prone position on procedure table and a pillow was placed under the abdomen to reduce lumbar lordosis. The lumbosacral area was prepped and draped in the usual sterile fashion. Critical pause was taken. Vital signs were closely monitored during the procedure. Using anterior-posterior fluoroscopy, the L5-S1 interlaminar space was identif ied, and skin and deeper tissues were localized with 1% lidocaine. Using anterior-posterior fluoroscopy, lateral fluoroscopy, and [id number] technique, a 20 gauge 3.5 Tuohy epidural needle entered the epidural space. After negative aspiration of CSF and blood with no paresthesias, 1 ml of [id number] contrast dye was injected and an excellent epidurogram was seen. Again after negative aspiration of CSF and blood with no paresthesias, 6 mL of block solution was injected into the epidural space. Block solution contained 40 mg of Depo-Medrol, and 5 mL of preservative-free normal saline. Needle was withdrawn intact, skin was cleansed, and bandages were applied. COMPLICATIONS: None. DISPOSITION / PLANS: The patient was placed in a supine position and transferred to the recovery area in a stable condition for observation. Patient was discharged from the recovery room after meeting discharge criteria. Home discharge instructions given to the patient by the staff. The patient was reex amined prior to discharge. The patient will schedule a follow up in the clinic in 4 weeks.
[2023-01-29 12:47] VITALS: BP 143/73; PULSE 71; RESP 18
== END 2023-01-29 12:51 | disposition home or self-care (01) ==
LOC: ORPAIN 11:20
DX: M51.16 Intervertebral disc disorders with radiculopathy, lumbar region (principal); I10 Essential (primary) hypertension; I25.10 Atherosclerotic heart disease of native coronary artery without angina pectoris; K21.9 Gastro-esophageal reflux disease without esophagitis; E78.5 Hyperlipidemia, unspecified; M45.9 Ankylosing spondylitis of unspecified sites in spine; Z98.890 Other specified postprocedural states; Z95.1 Presence of aortocoronary bypass graft; Z85.3 Personal history of malignant neoplasm of breast; Z98.82 Breast implant status; Z95.0 Presence of cardiac pacemaker
CPT/HCPCS: 62323; J2250; J1030; Q9966

== ENCOUNTER → 2023-02-18 | Outpatient (CLI) | payer MEDICARE ==
[2023-02-18 12:50] VITALS: BP 115/72; PULSE 70; RESP 18; TEMP 97.8
--- NOTE | 2023-02-18 14:18 | P.PAINPG ---
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 Pt states she experienced 55 % pain relief x 3 wks s/p procedure. Pain level is provoked at 10 /10 in intensity, constant, localized in the lower lumbar spine, sharp in character w/o shooting pain. Pain is provoked by bending, lifting. Pain is alleviated with medications, injections, use of a wheelchair for ambulatory assistance, repositioning and rest. Interventional pain procedures completed include CHELA L5-S1 x1 Patient is currently on Tyl, Tramadol, Neurontin Patient denies any side effects of the medication(s), denies excessive drowsiness or sleepiness, denies suicidal ideation and reports that the current pain medication is helping to control the pain and improve activities of daily living. Patient denies any motor or sensory deficits. Patient denies any fever or night sweats, denies any change in the bowel movements or urination. Physical Examination: -Constitutional: Cooperative. Not in acute distress . - Neurologic: Cranial nerve II to XII intact. No focal neurological deficits. - Psychatric: Alert & oriented x 3. Matching mood & appropriate affect. Judgment and insight intact. - Musculoskeletal: Cervical spine: Muscle bulk/ tone/ strength in the bilateral upper extremities normal Vertebral body tenderness to palpation over Spurling test positive Distraction test positive Facet loading test positive TTP Thoracic spine Muscle bulk / tone/ strength in the bilateral paraspinal muscles normal Vertebral body tender to palpation over Facet loading test positive TTP Lumbar spine: Motor bulk/ tone/ strength lower extremities , thigh and legs : 5/5 Deep tendon reflexes : Normal Knee Jerk. Normal Ankle Jerk . Vertebral body tenderness to palpation over L5 Lumbar Facet Loading Test positive Straight Leg Raise: positive at 30 degrees right side/ left side Gaenslen's Test positive Sacral spine : Severe tenderness over the Sacroiliac joint: right side / left side Range of motion: Flexion of the lumbar spine <60 degrees Range of motion: Extension of the lumbar spine <20 degrees Gaenslen's Test positive right side / left side Lori test: positive right side / left side Thigh Thrust Test positive right side / left side Sacral Thrust Test positive right side / left side Assessment and plan: Chronic LBP secondary to lumbar DDD, spondylosis with facet arthropathy without myelopathy Recommendation of CHELA L5-S1 #2. May need a series of injections for optimal pain relief. Risks, benefits of procedure discussed and pt verbalized understanding. Admits to anticoagulant use or medical history of diabetes. Protocol for discontinuation/ continuation of medications simi procedure discussed. All questions answered. I have spent less than 30 minutes on patient care today. Dr Blake was available by phone for the evaluation of this patient. The time was used to review the medical records including relevant urine studies and Prescription history (MAPs), review of the available imaging, evaluation and examination of the patient, coordination of care with the medical staff and if applicable referring physicians, as well as creation of the medical record PQRS Narrative: Smoking Status Never smoker Hx Alcohol Use (MH) No Home Medications: Ambulatory Orders Gabapentin 600 mg PO BID 03/27/15 allopurinoL [Zyloprim] 300 mg PO HS 03/27/15 Fenofibrate Nanocrystallized [Fenofibrate] 145 mg PO HS 05/07/22 ALPRAZolam [Xanax] 0.5 mg PO BID PRN 08/04/22 Ascorbic Acid [Vitamin C] 500 mg PO DAILY 08/04/22 Cholecalciferol [Vitamin D3 (25 Mcg = 1000 Iu)] 25 mcg PO DAILY 08/04/22 Sertraline [Zoloft] 50 mg PO DAILY 08/04/22 Atorvastatin [Lipitor] 40 mg PO HS 08/06/22 Metoprolol Succinate (ER) [Toprol XL] 25 mg PO BID 08/06/22 Acetaminophen Tab [Tylenol] 1,000 mg PO Q6HR PRN tab 08/07/22 Furosemide [Lasix] 20 mg PO DAILY 11/04/22 Omeprazole 20 mg PO DAILY PRN 11/04/22 Potassium Chloride [Klor-Con M20] 20 meq PO DAILY 11/04/22 Apixaban [Eliquis] 5 mg PO DAILY 01/28/23 Controlled Substance Measures - Controlled Substance Measures Is patient prescribed a controlled substance at discharge?: No
== END ==
LOC: PNWHC3 11:13
PROVIDERS: ATTEND Anesthesiology
DX: M51.36 Other intervertebral disc degeneration, lumbar region (principal); M47.816 Spondylosis without myelopathy or radiculopathy, lumbar region; G89.29 Other chronic pain
CPT/HCPCS: 99211

== ENCOUNTER 2023-04-07 09:27 | Day surgery (SDC) | payer MEDICARE ==
[2023-04-07] MEDS ORDERED: LIDOCAINE 1% (10MG/ML) FOR IV START INTRADERMA PRN (10:13)
[2023-04-07] MEDS ORDERED: LACTATED RINGERS 1,000 ML IV SCH (10:13)
[2023-04-07 10:21] VITALS: PULSE 71; TEMP 97.1
[2023-04-07] MEDS ORDERED: IOPAMIDOL M200 10 ML VIAL ONE (10:39)
[2023-04-07] MEDS ORDERED: methylPREDNISolone ACETATE 40 MG/ML 1 ML VIAL ONE (10:39)
--- NOTE | 2023-04-07 10:48 | P.PCN ---
Date of Procedure: 04/07/23 Procedure(s) Performed: PREOPERATIVE DIAGNOSIS: 1- Lumbar Degenerative Disc Diseases 2-failed back surgery syndrome lumbar area 3-lumbar radiculopathy POSTOPERATIVE DIAGNOSIS: Same as preop diagnosis. PROCEDURE 1. Lumbar epidural steroid injection under fluoroscopic guidance at the L5-S1 level. (Fluoroscopy imaging was available in radiology department) 2. Lumbar epidurogram. ANESTHESIA: Local anesthesia with lidocaine 1% 3 mL only. EBL: Minimal PROCEDURE INDICATION: The patient with low back pain and radiculitis symptoms unresponsive to conservative treatment. Fluoroscopy was used to optimize visualization of the needle placement and to maximize safety. PROCEDURE DESCRIPTION / TECHNIQUE: The patient was seen and identified in the preoperative area. Risks, benefits, complications including but not limited to infections ,bleeding ,allergic reaction to the medications ,nerve damage and not complete pain releife , and alternatives were discussed with the patient. The patient agreed to proceed with the procedure and signed the consent. IV was started, and vital signs were stable. Patient was taken to the OR and time out was completed. The patient was placed in the prone position on procedure table and a pillow was placed under the abdomen to reduce lumbar lordosis. The lumbosacral area was prepped and draped in the usual sterile fashion.ere closely monitored during the procedure. Vital signs was monitered during the entire procedure. Using anterior-posterior fluoroscopy, the L5-S1 interlaminar space was identified and the skin over this site was marked and then infiltrated with 1% lidocaine subcutaneously. Subsequently, a 20-gauge Tuohy epidural needle was inserted and advanced toward the epidural space using the ``Loss of resistance technique and guided by AP and lateral fluoroscopy. The correct needle position in the epidural space was verified with the injection of 2 mL of the water soluble contrast dye Isovue 200 contrast and observing an excellent epidurogram with the epidural spread of the dye, after negative aspiration for blood and CSF and in the absence of paresthesias. Again after negative aspiration, a 6 ml mixture containing 40 mg of Depo-medrol ( Preservetive Free ), and 2 ml of preservative free Normal Saline, and 2 ml of preservative free lidocaine 1% solution was injected and a washout of epidurogram was seen. Needle was withdrawn intact, skin was cleansed, and bandages were applied. COMPLICATIONS: None DISPOSITION / PLANS: The patient was placed in a supine position and transferred to the recovery area in a stable condition for observation. There was no evidence of lower extremity motor or sensory deficit after the procedure. Patient was discharged from the recovery room after meeting discharge criteria. Home discharge instructions were given to the patient by the staff. The patient was reexamined prior to discharge. The patient will schedule a follow up in the clinic in 2-4 weeks.
[2023-04-07 10:51] VITALS: BP 132/85; RESP 18
--- NOTE | 2023-04-07 11:50 | FL ---
EXAMINATION TYPE: FL guided pain mgmt statistic DATE OF EXAM: 04/07/2023 HISTORY: Fluoroscopy time Total dose area product (DAP) in uGy*m?, mGy*cm? (or similar): 0.002 IMPRESSION: 1. Fluoroscopy time.
== END 2023-04-07 11:10 | disposition home or self-care (01) ==
LOC: ORPAIN 09:27
PROVIDERS: ATTEND Specialist
DX: M51.16 Intervertebral disc disorders with radiculopathy, lumbar region (principal); M96.1 Postlaminectomy syndrome, not elsewhere classified; Z79.01 Long term (current) use of anticoagulants
CPT/HCPCS: 62323; J1030; Q9966